=== PATIENT | female | born 1940 | race Caucasian/White ===

== ENCOUNTER 2017-02-16 01:34 | Inpatient (IN) | payer MEDICARE, BC ==
[2017-02-16] MEDS ORDERED: DIAZEPAM 5 MG/ML 2 ML SYRINGE IVP STA (02:30)
--- NOTE | 2017-02-16 02:33 | ED ---
Neck Injury/Pain HPI - General Source: RN notes reviewed Mode of arrival: EMS Limitations: no limitations <Afia Pfeiffer - Last Filed: 02/16/17 05:01> <Giacomo Fernandez - Last Filed: 02/16/17 08:02> - General Chief Complaint: Neck Pain/Injury Stated Complaint: neck pain Time Seen by Provider: 02/16/17 01:43 - History of Present Illness Initial Comments: Patient is a 76-year-old female presents emergency room for evaluation of neck pain. Patient states she began developing neck pain morning when she woke up. Patient states the pain gotten worse throughout the day, so she went to her primary care provider on Friday. Patient states that she was given muscle relaxers. Patient states she has been taking one muscle relaxer per day with no relief of symptoms. Patient states the pain is worse while laying in bed. Patient states she can't move her neck or get out of a chair/bed without pain. Patient states the pain radiates from the base of her scalp on bilateral sides of her cervical spine to bilateral shoulders. Patient denies any numbness or tingling in her fingers. Patient denies headache or dizziness. Patient denies chest pain or shortness of breath. Patient denies fevers or chills. Patient denies any recent falls or trauma to her neck/head. (Afia Pfeiffer) - Related Data Home Medications Medication Instructions Recorded Confirmed Aspirin 81 mg PO BID 05/04/15 02/16/17 Atorvastatin Calcium [Lipitor] 40 mg PO DAILY 05/04/15 02/16/17 Fluticasone/Salmeterol [Advair 1 puff INHALATION RT-BID 05/04/15 02/16/17 500-50 Diskus] Hydrochlorothiazide [Hydrodiuril] 50 mg PO DAILY 05/04/15 02/16/17 Levothyroxine Sodium [Synthroid] 50 mcg PO DAILY 05/04/15 02/16/17 Meclizine [Antivert] 25 mg PO BID PRN 05/04/15 02/16/17 metFORMIN HCL [Glucophage] 500 mg PO BID 05/04/15 02/16/17 ALPRAZolam [ALPRAZolam] 1 mg PO TID PRN 08/23/16 02/16/17 Albuterol Inhaler [Ventolin Hfa 1 - 2 puff INHALATION RT-Q4H PRN 08/23/16 Inhaler] Insulin Aspart [NovoLOG Flexpen] See Protocol SQ ACHS 08/23/16 02/16/17 Lansoprazole [Lansoprazole] 30 mg PO DAILY 08/23/16 02/16/17 Cyclobenzaprine HCl [Amrix] 15 mg PO DAILY 02/16/17 02/16/17 Edoxaban Tosylate [Savaysa] 60 mg PO HS 02/16/17 02/16/17 Verapamil HCl [Verapamil ER] 120 mg PO DAILY 02/16/17 02/16/17 Allergies Allergy/AdvReac Type Severity Reaction Status Date / Time erythromycin base Allergy Rash/Hives Verified 02/16/17 01:49 lisinopril Allergy Unknown Verified 02/16/17 01:49 moexipril HCl [From Univasc] Allergy Cough Verified 02/16/17 01:49 sulfamethoxazole Allergy Rash/Hives Verified 02/16/17 01:49 [From Bactrim] trimethoprim [From Bactrim] Allergy Rash/Hives Verified 02/16/17 01:49 cat scan dye Allergy Rash/Hives Uncoded 02/16/17 01:49 Review of Systems ROS Other: All systems not noted in ROS Statement are negative. <Afia Pfeiffer - Last Filed: 02/16/17 05:01> ROS Other: All systems not noted in ROS Statement are negative. <Giacomo Fernandez - Last Filed: 02/16/17 08:02> ROS Statement: Those systems with pertinent positive or pertinent negative responses have been documented in the HPI. Past Medical History Past Medical History: Atrial Flutter, Asthma, CVA/TIA, Diabetes Mellitus, Eye Disorder, Hyperlipidemia, Hypertension, Liver Disease, Osteoarthritis (OA), Thyroid Disorder Additional Past Medical History / Comment(s): Palpitations for years, NIDDM type II, hypothyroid, CVA 2011 with some L sided weakness, bilateral tinnitis, hepatitis back in the 1950's-unkn which type, hiatal hernia, sinus problems, chronic back pain, epistaxis in past but none lately, macular degeneration bilaterally, generalized arthritis. History of Any Multi-Drug Resistant Organisms: None Reported Past Surgical History: Heart Catheterization, Hysterectomy, Joint Replacement, Orthopedic Surgery Additional Past Surgical History / Comment(s): bilateral cataract surgery, eye injections for macular degeneration q 5 weeks, bilateral knee arthroscopies and arthroplasties, 08/07/16 cardiac cath-normal. loop recorder 08/2016 Past Anesthesia/Blood Transfusion Reactions: Motion Sickness, Postoperative Nausea & Vomiting (PONV) Past Psychological History: Anxiety Additional Psychological History / Comment(s): Pt resides with her spouse. She uses a cane if she needs to walk longer distances. She drives. Smoking Status: Never smoker Past Alcohol Use History: None Reported Past Drug Use History: None Reported - Past Family History Father Family Medical History: Congestive Heart Failure (CHF) Additional Family Medical History / Comment(s): Father of CHF at the age of 89yrs. Mother Family Medical History: CVA/TIA, Osteoarthritis (OA) Additional Family Medical History / Comment(s): Mother of a CVA at the age of 89yrs. <Afia Pfeiffer - Last Filed: 02/16/17 05:01> General Exam Limitations: no limitations General appearance: alert, in no apparent distress Head exam: Present: atraumatic, normocephalic, normal inspection Eye exam: Present: normal appearance ENT exam: Present: normal exam Neck exam: Present: normal inspection, tenderness (Palpating over bilateral paraspinal cervical muscles and tenderness on palpating over the posterior scalp ). Absent: full ROM Respiratory exam: Present: normal lung sounds bilaterally. Absent: respiratory distress Cardiovascular Exam: Present: regular rate, normal rhythm, normal heart sounds Extremities exam: Present: normal inspection Back exam: Present: normal inspection Neurological exam: Present: alert, oriented X3, CN II-XII intact Expanded Cranial nerves: EOM's Intact: Normal Sensory exam: Upper Extremity Light Touch: Normal, Lower Extremity Light Touch: Normal Motor strength exam: RUE: 5, LUE: 5, RLE: 5, LLE: 5 Eye Response: (4) open spontaneously Motor Response: (6) obeys commands Verbal Response: (5) oriented Psychiatric exam: Present: normal affect, normal mood Skin exam: Present: warm, dry, intact, normal color. Absent: rash <Afia Pfeiffer - Last Filed: 02/16/17 05:01> <Giacomo Fernandez - Last Filed: 02/16/17 08:02> - General Exam Comments Initial Comments: Sitting in exam room, soft c-collar on, no acute distress. (Afia Pfeiffer) Medical Decision Making - Lab Data Result diagrams: 02/16/17 04:00 02/16/17 04:00 - Radiology Data Radiology results: report reviewed, image reviewed <Afia Pfeiffer - Last Filed: 02/16/17 05:01> - Lab Data Result diagrams: 02/16/17 04:00 02/16/17 04:00 <Giacomo Fernandez - Last Filed: 02/16/17 08:02> - Medical Decision Making Patient is a 76-year-old female presents emergency room for evaluation of severe neck pain. Cervical spine x-ray shows no acute findings. Patient noted to have elevated WBC. Patient sent for brain/C-spine CT. Other labs pending. Case discussed and passed on to Dr. Fernandez at 5 AM. (Afia Pfeiffer) This patient is a 76-year-old woman who presents for evaluation and treatment of intractable neck pain. When I did go and see the patient, she has severely limited range of motion. On presentation she also does have low-grade fever. Discussed with patient the concerns of possible meningitis. Do not suspect acute bacterial meningitis as the symptoms have been going on for 3 days and suspect that the patient would have become critically ill earlier in the course , however the patient does agree with having lumbar puncture, as she is not responding to treatment for musculoskeletal neck pain. The patient does take edoxaban, and the last dose was at 4 PM. Given this would recommend waiting for 24 hours or reversing the patient's anticoagulant. Discussed with admitting physician, who I would like Dr. Cross consulted for his input. Patient also to have antibiotic coverage pending. (Giacomo Fernandez) - Lab Data Lab Results 02/16/17 02/16/17 02/16/17 Range/Units 04:00 04:00 04:00 WBC 14.6 H (3.8-10.6) k/uL RBC 4.04 (3.80-5.40) m/uL Hgb 11.4 (11.4-16.0) gm/dL Hct 34.6 (34.0-46.0) % MCV 85.6 (80.0-100.0) fL MCH 28.3 (25.0-35.0) pg MCHC 33.1 (31.0-37.0) g/dL RDW 15.3 (11.5-15.5) % Plt Count 227 (150-450) k/uL Neutrophils % 83 % Lymphocytes % 11 % Monocytes % 4 % Eosinophils % 0 % Basophils % 0 % Neutrophils # 12.1 H (1.3-7.7) k/uL Lymphocytes # 1.7 (1.0-4.8) k/uL Monocytes # 0.6 (0-1.0) k/uL Eosinophils # 0.0 (0-0.7) k/uL Basophils # 0.0 (0-0.2) k/uL ESR 97 H (0-20) mm/hr D-Dimer 0.81 H (<0.60) mg/L FEU Sodium 136 L (137-145) mmol/L Potassium 3.8 (3.5-5.1) mmol/L Chloride 98 (98-107) mmol/L Carbon Dioxide 27 (22-30) mmol/L Anion Gap 11 mmol/L BUN 21 H (7-17) mg/dL Creatinine 0.80 (0.52-1.04) mg/dL Est GFR (MDRD) Af Amer >60 (>60 ml/min/1.73 sqM) Est GFR (MDRD) Non-Af >60 (>60 ml/min/1.73 sqM) Glucose 144 H (74-99) mg/dL Calcium 8.7 (8.4-10.2) mg/dL Total Bilirubin 0.9 (0.2-1.3) mg/dL AST 15 (14-36) U/L ALT 25 (9-52) U/L Alkaline Phosphatase 93 (38-126) U/L Troponin I (0.000-0.034) ng/mL Total Protein 6.5 (6.3-8.2) g/dL Albumin 3.4 L (3.5-5.0) g/dL 02/16/17 Range/Units 04:00 WBC (3.8-10.6) k/uL RBC (3.80-5.40) m/uL Hgb (11.4-16.0) gm/dL Hct (34.0-46.0) % MCV (80.0-100.0) fL MCH (25.0-35.0) pg MCHC (31.0-37.0) g/dL RDW (11.5-15.5) % Plt Count (150-450) k/uL Neutrophils % % Lymphocytes % % Monocytes % % Eosinophils % % Basophils % % Neutrophils # (1.3-7.7) k/uL Lymphocytes # (1.0-4.8) k/uL Monocytes # (0-1.0) k/uL Eosinophils # (0-0.7) k/uL Basophils # (0-0.2) k/uL ESR (0-20) mm/hr D-Dimer (<0.60) mg/L FEU Sodium (137-145) mmol/L Potassium (3.5-5.1) mmol/L Chloride (98-107) mmol/L Carbon Dioxide (22-30) mmol/L Anion Gap mmol/L BUN (7-17) mg/dL Creatinine (0.52-1.04) mg/dL Est GFR (MDRD) Af Amer (>60 ml/min/1.73 sqM) Est GFR (MDRD) Non-Af (>60 ml/min/1.73 sqM) Glucose (74-99) mg/dL Calcium (8.4-10.2) mg/dL Total Bilirubin (0.2-1.3) mg/dL AST (14-36) U/L ALT (9-52) U/L Alkaline Phosphatase (38-126) U/L Troponin I <0.012 (0.000-0.034) ng/mL Total Protein (6.3-8.2) g/dL Albumin (3.5-5.0) g/dL Disposition <Afia Pfeiffer - Last Filed: 02/16/17 05:01> <Giacomo Fernandez - Last Filed: 02/16/17 08:02> Clinical Impression: Intractable pain, Leukocytosis Disposition: ADMITTED IP TO THIS [facility] Condition: Fair Referrals: Mark Macias DO [Primary Care Provider] - 1-2 days
[2017-02-16] MEDS ORDERED: MORPHINE SULFATE 4 MG/ML SYRINGE IVP STA (03:30)
--- NOTE | 2017-02-16 03:38 | XR ---
EXAM: XR Cervical Spine, 4 or 5 Views. CLINICAL HISTORY: Reason: Pain TECHNIQUE: Frontal, lateral and oblique views of the cervical spine. COMPARISON: No relevant prior studies available. FINDINGS: Vertebrae: No fracture or traumatic malalignment. Note that the C7 vertebral body on lateral radiograph was not seen well secondary to bony artifact from shoulders. Disc spaces: Mild to moderate degenerative changes of the cervical spine. Soft tissues: Unremarkable. IMPRESSION: No acute findings.
[2017-02-16 04:18] LABS: Basophils % (A) 0 %; CH 28.6; CHCM 33.6; Eosinophils % (A) 0 %; HCT 34.6 % (34.0-46.0); HDW 2.88; HGB 11.4 gm/dL (11.4-16.0); Luc # (Auto) 0.13; Luc % (Auto) 1; Lymphocytes # (A) 1.7 k/uL (1.0-4.8); Lymphocytes % (A) 11 %; MCH 28.3 pg (25.0-35.0); MCHC 33.1 g/dL (31.0-37.0); MCV 85.6 fL (80.0-100.0); Mean Platelet Volume 7.4; Monocytes # (A) 0.6 k/uL (0-1.0); Monocytes % (A) 4 %; Neutrophils # (A) 12.1 k/uL (1.3-7.7); Neutrophils % (A) 83 %; RBC 4.04 m/uL (3.80-5.40); RDW 15.3 % (11.5-15.5); WBC 14.6 k/uL (3.8-10.6); WBC (Perox) 14.91
[2017-02-16 04:31] LABS: ALT 25 U/L (9-52); AST 15 U/L (14-36); Alkaline Phosphatase 93 U/L (38-126); Anion Gap 11 mmol/L; Blood Urea Nitrogen 21 mg/dL (7-17); Calcium 8.7 mg/dL (8.4-10.2); Carbon Dioxide 27 mmol/L (22-30); Chloride 98 mmol/L (98-107); Glucose 144 mg/dL (74-99); Non-African American GFR(MDRD) >60 (>60 ml/min/1.73 sqM); Potassium 3.8 mmol/L (3.5-5.1); Sodium 136 mmol/L (137-145); Total Bilirubin 0.9 mg/dL (0.2-1.3); Total Protein 6.5 g/dL (6.3-8.2)
[2017-02-16 05:28] LABS: Erythrocyte Sedimentation Rate 97 mm/hr (0-20)
--- NOTE | 2017-02-16 05:32 | CT ---
EXAM: CT Head Without Intravenous Contrast. CLINICAL HISTORY: Reason: Pain TECHNIQUE: Axial computed tomography images of the head/brain without intravenous contrast. CTDI is 57.4 mGy and DLP is 1012.7 mGy-cm This CT exam was performed using one or more of the following dose reduction techniques: automated exposure control, adjustment of the mA and/or kV according to patient size, and/or use of iterative reconstruction technique. COMPARISON: CT head dated 08/08/2012 FINDINGS: Brain: No evidence of acute infarct, hemorrhage, mass or edema. Encephalomalacia within the right posterior frontal/parietal lobe likely remote infarct. Ventricles: Unremarkable. No ventriculomegaly. Bones/joints: Unremarkable. No acute fracture. Soft tissues: Unremarkable. Sinuses: Minimal mucosal thickening in the paranasal sinuses. Mastoid air cells: Unremarkable as visualized. No mastoid effusion. IMPRESSION: No evidence of acute infarct, hemorrhage, mass or edema. EXAM: CT Cervical Spine Without Intravenous Contrast. CLINICAL HISTORY: Reason: Pain TECHNIQUE: Axial computed tomography images of the cervical spine without intravenous contrast. CTDI is 21.9 mGy and DLP is 372.6 mGy-cm This CT exam was performed using one or more of the following dose reduction techniques: automated exposure control, adjustment of the mA and/or kV according to patient size, and/or use of iterative reconstruction technique. COMPARISON: No relevant prior studies available. FINDINGS: Vertebrae: No evidence of acute fracture or medical malalignment. Discs/spinal canal/neural foramina: Degenerative changes. No spinal canal stenosis. Soft tissues: Unremarkable. Lung apices: Pleural parenchymal scarring within the lung apices. IMPRESSION: No acute findings.
[2017-02-16] MEDS ORDERED: DEXAMETHASONE SOD PHOSPHATE 4 MG/ML 1 ML VIAL IV STA (06:08)
[2017-02-16] MEDS ORDERED: cefTRIAXone 2,000 MG in SODIUM CHLORIDE 0.9% 100 ML IVPB STA (06:13)
[2017-02-16 07:01] VITALS: RESP 18
[2017-02-16] MEDS ORDERED: NALOXONE 0.4 MG/ML 1 ML VIAL IV PRN (07:52)
[2017-02-16] MEDS ORDERED: ONDANSETRON 4 MG/2 ML VIAL IVP PRN (07:52)
[2017-02-16] MEDS ORDERED: ALBUTEROL NEBULIZED 2.5 MG/3 ML INHALATION PRN (07:56)
[2017-02-16] MEDS ORDERED: MECLIZINE 25 MG TAB PO PRN (07:56)
[2017-02-16] MEDS ORDERED: ALPRAZolam 0.5 MG TAB PO PRN (07:56)
[2017-02-16] MEDS ORDERED: SYMBICORT 160-4.5 MCG INHALER INHALATION SCH (08:00)
[2017-02-16] MEDS ORDERED: SODIUM CHLORIDE 0.9% 1,000 ML IV SCH (08:00)
[2017-02-16] MEDS ORDERED: IV VANCOMYCIN PER PHARMACY 1 EACH MISC MISCELLANE PRN ×2 (08:02→11:47)
[2017-02-16] MEDS: MORPHINE SULFATE 4 MG/ML SYRINGE IV PRN ×2 (08:42→16:38)
[2017-02-16] MEDS ORDERED: ATORVASTATIN 40 MG TAB PO SCH (09:00)
[2017-02-16] MEDS ORDERED: ASPIRIN 81 MG CHEW PO SCH (09:00)
[2017-02-16] MEDS ORDERED: PANTOPRAZOLE 40 MG TABLET PO SCH (09:00)
[2017-02-16] MEDS ORDERED: VERAPAMIL SR 120 MG TABLET.ER PO SCH (09:00)
[2017-02-16] MEDS ORDERED: metFORMIN 500 MG TAB PO SCH (09:00)
[2017-02-16] MEDS ORDERED: FAMOTIDINE 20 MG TAB PO SCH (09:00)
[2017-02-16] MEDS ORDERED: CYCLOBENZAPRINE 5 MG TAB PO SCH (09:00)
[2017-02-16] MEDS ORDERED: LEVOTHYROXINE 50 MCG TAB PO SCH (09:00)
[2017-02-16] MEDS ORDERED: VANCOMYCIN 1,500 MG in SODIUM CHLORIDE 0.9% 250 ML IVPB SCH (09:00)
[2017-02-16] MEDS ORDERED: HYDROCHLOROTHIAZIDE 50 MG TAB PO SCH (09:00)
[2017-02-16] MEDS ORDERED: KETOROLAC 30 MG/ML 1 ML VIAL IVP SCH (12:00)
[2017-02-16 12:20] VITALS: BMI 29.7
[2017-02-16 15:41] LABS: Amorphous Sediment,Urine Occasional /hpf; Appearance,Urine Cloudy (Clear); Bacteria,Urine Few /hpf; Bilirubin,Urine Negative (Negative); Glucose,Urine (UA) Negative (Negative); Ketones,Urine Negative (Negative); Leukocyte Esterase,Urine Small (Negative); Mucus,Urine Rare /hpf; Nitrite,Urine Negative (Negative); PH, Urine 5.5 (5.0-8.0); Particle Count 10502; Protein,Urine Trace (Negative); RBC,Urine 146 /hpf (0-5); Squamous Epithelial Cell,Urine 3 /hpf (0-4); UA Billing (MACRO vs. MICRO) MICRO; Urobilinogen,Urine <2.0 mg/dL (<2.0); WBC,Urine 8 /hpf (0-5)
[2017-02-16 15:51] VITALS: BP 104/56; PULSE 82; TEMP 98.5
--- NOTE | 2017-02-16 15:55 | DS ---
DATE OF ADMISSION: 02/16/2017 DATE OF DISCHARGE: FINAL DIAGNOSES: 1. Neck pain and high white count, rule out spinal epidural abscess. 2. Rule out meningitis. 3. ESR 102. 4. CRP 232.3. 5. Hyponatremia. 6. History of atrial flutter, was Savaysa. 7. History of asthma. 8. History of cerebrovascular accident, transient ischemic attack. 9. Diabetes mellitus type 2. 10. Hyperlipidemia. 11. Hypertension. 12. Liver disease. 13. Degenerative joint disease. 14. History of hypothyroidism. 15. History of cerebrovascular accident. 16. History of bilateral tinnitus. 17. History of hepatitis. 18. History of epistaxis. 19. History of macular degeneration. 20. History cataract surgery. 21. History of anxiety. DISCHARGE DISPOSITION: Patient will be transferred to [facility] in stable condition with guarded prognosis. HISTORY OF PRESENT ILLNESS: This 76-year-old woman with a past medical history of multiple medical problems was admitted with neck pain and as well as elevated WBC and CRP and ESR as mentioned earlier, treated symptomatically. A lumbar puncture could not be done because of the patient was on and MRI could not be done on the weekend. Cultures were done and patient was treated with broad-spectrum IV antibiotics utilizing IV vancomycin as well as Rocephin 2 grams IV b.i.d. but; however, because of concerns of epidural abscess/meningitis, the patient is being transferred to [facility] in a stable condition with guarded prognosis. I have discussed the case at length with [facility] on-call hospitalist and the patient will be transferred. The current medications are as follows includin. Xanax 1 mg t.i.d. p.r.n. 2. Albuterol 2.5 p.r.n. 3. Aspirin 81 mg Friday, Friday, Friday. 4. Lipitor 40 mg daily. 5. Symbicort 2 puffs b.i.d. 6. Flexeril 50 mg p.o. daily. 7. Pepcid 20 mg p.o. b.i.d. 8. Hydrochlorothiazide 50 mg p.o. daily. 9. Toradol 50 mg IV q.6 p.r.n. 10. Levothyroxine 50 mcg p.o. daily. 11. Antivert 25 mg b.i.d. p.r.n. 12. Morphine 4 mg q.4 p.r.n. 13. Narcan. 14. Zofran p.r.n. 15. Protonix 40 mg daily. 16. Vancomycin 1.5 IV q.24 hours. 17. Isoptin 120 mg p.o. daily. 18. Rocephin 2 grams IV b.i.d. 19. Metformin 500 mg p.o. b.i.d.
[2017-02-16] MEDS ORDERED: INSULIN LISPRO (humaLOG) 300 UNIT/3 ML VIAL SQ SCH (17:30)
--- NOTE | 2017-02-16 17:36 | P.CONS ---
History of Present Illness - Reason for Consult Consult date: 02/16/17 - Chief Complaint Progressive neck pain over 48 hours - History of Present Illness 76-year-old female that has a significant past medical history that she is undergone a stroke with some residual left-sided weakness and discomforts. The patient relates that within the last few days she started increasing amounts of pain to her neck and upper shoulders. She was in the outpatient setting and given a muscle relaxant. Despite that the pain markedly increased. She was actually unable to get out of bed. So her family brought her to the emergency center. She was noticed to have evidence of some leukocytosis and a temperature of 99.5. Because of the progressive neck pain and computed tomography scan of the neck was performed. Minimal arthritic changes were noted. No evidence of any cord compression or infections were seen. Patient remains miserable despite muscle relaxants and pain control. However she lays completely flexing the still show she does have time she has absolutley no pain at all,. Review of Systems Has significant pain within her neck. But denies other acute neurological changes. She denies dizziness or vertigo Ear pains. She is not difficulty with swallowing HEENT:Denies headache or acute visual change. Denies sinus or mouth discomforts. Denies neck stiffness or pain. Denies significant oral cavity pain. Denies difficulty on swallowing. Lungs: Denies significant shortness of breath, cough, sputum production, or hemoptysis. Cardiovascular: Denies significant shortness of breath, chest pain, chest wall pain, orthopnea, dyspnea on exertion, syncope Gastrointestinal:Denies nausea, vomiting, diarrhea, constipation, hematemesis, melena, hematochezia. No no significant change of bowel habit noticed. Musculoskeletal: denies significant myalgias or arthralgias. No new joint swelling. Denies new back pain. Skin: Denies new rash or lesions. No new ulcers or wounds are related.. Neuro: Continues to have the left-sided deficits as a residual from her stroke. Significant heaviness to her left leg results and her needing a walker to ambulate. She has some weakness and clumsiness to her left hand and this is new at this time. It is also not worsened. Psychiatric:Denies anxiety or depression. Endocrine: she's had severe fatigue since her stroke but no stiff in weight gain Past Medical History Past Medical History: Atrial Flutter, Asthma, CVA/TIA, Diabetes Mellitus, Eye Disorder, Hyperlipidemia, Hypertension, Liver Disease, Osteoarthritis (OA), Thyroid Disorder Additional Past Medical History / Comment(s): Palpitations for years, NIDDM type II, hypothyroid, CVA 2011 with some L sided weakness, bilateral tinnitis, hepatitis back in the 1950's-unkn which type, hiatal hernia, sinus problems, chronic back pain, epistaxis in past but none lately, macular degeneration bilaterally, generalized arthritis. History of Any Multi-Drug Resistant Organisms: None Reported Past Surgical History: Heart Catheterization, Hysterectomy, Joint Replacement, Orthopedic Surgery Additional Past Surgical History / Comment(s): bilateral cataract surgery, eye injections for macular degeneration q 5 weeks, bilateral knee arthroscopies and arthroplasties, 08/07/16 cardiac cath-normal. loop recorder 08/2016 Past Anesthesia/Blood Transfusion Reactions: Motion Sickness, Postoperative Nausea & Vomiting (PONV) Past Psychological History: Anxiety Additional Psychological History / Comment(s): Pt resides with her spouse. She uses a walker or cane if she needs to walk longer distances. She drives occasionally, but not long distance. . Adult daughter lives close by and is helpful. Is retired. No experience. No extensive travel. no animal exposures. Lifelong nonsmoker with no significant alcohol use Smoking Status: Never smoker Past Alcohol Use History: None Reported Past Drug Use History: None Reported - Past Family History Father Family Medical History: Congestive Heart Failure (CHF) Additional Family Medical History / Comment(s): Father of CHF at the age of 89yrs. Mother Family Medical History: CVA/TIA, Osteoarthritis (OA) Additional Family Medical History / Comment(s): Mother of a CVA at the age of 89yrs. Medications and Allergies Home Medications Medication Instructions Recorded Confirmed Type Aspirin 81 mg PO MOWEFR 05/04/15 02/16/17 History Atorvastatin Calcium [Lipitor] 40 mg PO HS 05/04/15 02/16/17 History Hydrochlorothiazide [Hydrodiuril] 50 mg PO DAILY 05/04/15 02/16/17 History Levothyroxine Sodium [Synthroid] 50 mcg PO DAILY 05/04/15 02/16/17 History Meclizine [Antivert] 25 mg PO TID 05/04/15 02/16/17 History metFORMIN HCL [Glucophage] 500 mg PO BID 05/04/15 02/16/17 History ALPRAZolam [ALPRAZolam] 1 mg PO BID PRN 08/23/16 02/16/17 History Albuterol Inhaler [Ventolin Hfa 1 - 2 puff INHALATION RT-Q4H PRN 08/23/16 History Inhaler] Insulin Aspart [NovoLOG Flexpen] See Protocol SQ ACHS 08/23/16 02/16/17 History Lansoprazole [Lansoprazole] 30 mg PO DAILY 08/23/16 02/16/17 History Cyclobenzaprine HCl [Amrix] 15 mg PO HS 02/16/17 02/16/17 History Edoxaban Tosylate [Savaysa] 60 mg PO HS 02/16/17 02/16/17 History Fluticasone/Salmeterol [Advair 1 puff INHALATION RT-BID 02/16/17 02/16/17 History 100-50 Diskus] Verapamil HCl [Verapamil ER] 120 mg PO DAILY 02/16/17 02/16/17 History Vit C/E/Zn/Coppr/Lutein/Zeaxan 1 cap PO BID 02/16/17 02/16/17 History [Preservision Areds 2 Softgel] Allergies Allergy/AdvReac Type Severity Reaction Status Date / Time MITALI Inhibitors Allergy Unknown Verified 02/16/17 11:57 erythromycin base Allergy Rash/Hives Verified 02/16/17 11:57 iodine Allergy Unknown Verified 02/16/17 11:57 lisinopril Allergy Unknown Verified 02/16/17 11:57 moexipril HCl [From Univasc] Allergy Cough Verified 02/16/17 11:57 sulfamethoxazole Allergy Rash/Hives Verified 02/16/17 11:57 [From Bactrim] trimethoprim [From Bactrim] Allergy Rash/Hives Verified 02/16/17 11:57 cat scan dye Allergy Rash/Hives Uncoded 02/16/17 01:49 Physical Exam Vitals: Vital Signs Temp Pulse Pulse Resp BP BP Pulse Ox 02/16/17 15:00 98.5 F 82 18 104/56 91 L 02/16/17 08:37 99.2 F 90 18 108/53 90 L 02/16/17 08:31 97.4 F L 74 18 158/74 100 Intake and Output 02/16/17 02/16/17 02/16/17 06:59 14:59 22:59 Intake Total 100 Balance 100 Intake: Amount of Fluid Infused ( 100 ml) Other: # Voids 1 Weight 76.204 kg Patient Weight 02/17/17 06:59 Weight 76.204 kg Very pleasant 76-year-old woman who presents to Hospital the significant pain in her neck. As noted she is not having fevers chills or rigors or sweats. In the worsening of underlying neurological symptoms status post her stroke HEENT: Anicteric conjunctiva are pink and moist nasal mucosa grossly intact without significant lesions, there is no thrush. Neck: The neck is very stiff. There is distinct point tenderness over the posterior musculature of the neck. This tracks down onto the upper aspect of the shoulders to the scapula. The shoulders themselves have no point tenderness. No significant lesions are seen. No vesicles are seen. There are no lesions in the external auditory canal in either ear. No lesions are seen in the scalp either . Lungs: Good bilateral air entry without significant crackles or wheezing. There is no significant bronchial sounds. There is no egophony or dullness. Heart: Regular rate and rhythm with an audible S1-S2, no S3 no S4. There is no significant murmur click or rub, PMI was nondisplaced. Abdomen: Positive bowel sounds soft and nontender without palpable masses or organomegaly. There was no guarding or rebound. Extremities: The upper extremities have excellent pulses they are symmetric, no significant petechiae or telangiectasia. No splinter hemorrhages were noted. The lower extremities are free from significant edema. The peripheral pulses were 2+ and symmetric. Neuro: Awake alert oriented to person place and time. Has some weakness to her left arm. Also weakness of the left leg. Patient relates that there is no change from prior. Results CBC & Chem 7: 02/16/17 04:00 02/16/17 04:00 Labs: Abnormal Lab Results - Last 24 Hours (Table) 02/16/17 02/16/17 02/16/17 Range/Units 11:35 11:35 15:07 ESR 102 H (0-20) mm/hr C-Reactive Protein 232.3 H (<10.0) mg/L Urine Appearance (Clear) Urine Protein (Negative) Urine Blood (Negative) Ur Leukocyte Esterase (Negative) Urine RBC (0-5) /hpf Urine WBC (0-5) /hpf Amorphous Sediment (None) /hpf Urine Bacteria (None) /hpf Hyaline Casts (0-2) /lpf Urine Mucus (None) /hpf Urine Opiates Screen Detected H (NotDetected) U Benzodiazepines Scrn Detected H (NotDetected) 02/16/17 Range/Units 15:07 ESR (0-20) mm/hr C-Reactive Protein (<10.0) mg/L Urine Appearance Cloudy H (Clear) Urine Protein Trace H (Negative) Urine Blood Small H (Negative) Ur Leukocyte Esterase Small H (Negative) Urine RBC 146 H (0-5) /hpf Urine WBC 8 H (0-5) /hpf Amorphous Sediment Occasional H (None) /hpf Urine Bacteria Few H (None) /hpf Hyaline Casts 5 H (0-2) /lpf Urine Mucus Rare H (None) /hpf Urine Opiates Screen (NotDetected) U Benzodiazepines Scrn (NotDetected) Laboratory Results WBC 14.6 k/uL (3.8-10.6) H 02/16/17 04:00 RBC 4.04 m/uL (3.80-5.40) 02/16/17 04:00 Hgb 11.4 gm/dL (11.4-16.0) 02/16/17 04:00 Hct 34.6 % (34.0-46.0) 02/16/17 04:00 MCV 85.6 fL (80.0-100.0) 02/16/17 04:00 MCH 28.3 pg (25.0-35.0) 02/16/17 04:00 MCHC 33.1 g/dL (31.0-37.0) 02/16/17 04:00 RDW 15.3 % (11.5-15.5) 02/16/17 04:00 Plt Count 227 k/uL (150-450) 02/16/17 04:00 Neutrophils % 83 % 02/16/17 04:00 Lymphocytes % 11 % 02/16/17 04:00 Monocytes % 4 % 02/16/17 04:00 Eosinophils % 0 % 02/16/17 04:00 Basophils % 0 % 02/16/17 04:00 Neutrophils # 12.1 k/uL (1.3-7.7) H 02/16/17 04:00 Lymphocytes # 1.7 k/uL (1.0-4.8) 02/16/17 04:00 Monocytes # 0.6 k/uL (0-1.0) 02/16/17 04:00 Eosinophils # 0.0 k/uL (0-0.7) 02/16/17 04:00 Basophils # 0.0 k/uL (0-0.2) 02/16/17 04:00 ESR 102 mm/hr (0-20) H 02/16/17 11:35 D-Dimer 0.81 mg/L FEU (<0.60) H 02/16/17 04:00 Sodium 136 mmol/L (137-145) L 02/16/17 04:00 Potassium 3.8 mmol/L (3.5-5.1) 02/16/17 04:00 Chloride 98 mmol/L (98-107) 02/16/17 04:00 Carbon Dioxide 27 mmol/L (22-30) 02/16/17 04:00 Anion Gap 11 mmol/L 02/16/17 04:00 BUN 21 mg/dL (7-17) H 02/16/17 04:00 Creatinine 0.80 mg/dL (0.52-1.04) 02/16/17 04:00 Est GFR (MDRD) Af Amer >60 (>60 ml/min/1.73 sqM) 02/16/17 04:00 Est GFR (MDRD) Non-Af >60 (>60 ml/min/1.73 sqM) 02/16/17 04:00 Glucose 144 mg/dL (74-99) H 02/16/17 04:00 Calcium 8.7 mg/dL (8.4-10.2) 02/16/17 04:00 Total Bilirubin 0.9 mg/dL (0.2-1.3) 02/16/17 04:00 AST 15 U/L (14-36) 02/16/17 04:00 ALT 25 U/L (9-52) 02/16/17 04:00 Alkaline Phosphatase 93 U/L (38-126) 02/16/17 04:00 Troponin I <0.012 ng/mL (0.000-0.034) 02/16/17 04:00 C-Reactive Protein 232.3 mg/L (<10.0) H 02/16/17 11:35 Total Protein 6.5 g/dL (6.3-8.2) 02/16/17 04:00 Albumin 3.4 g/dL (3.5-5.0) L 02/16/17 04:00 Urine Color Yellow 02/16/17 15:07 Urine Appearance Cloudy (Clear) H 02/16/17 15:07 Urine pH 5.5 (5.0-8.0) 02/16/17 15:07 Ur Specific [place] 1.010 (1.001-1.035) 02/16/17 15:07 Urine Protein Trace (Negative) H 02/16/17 15:07 Urine Glucose (UA) Negative (Negative) 02/16/17 15:07 Urine Ketones Negative (Negative) 02/16/17 15:07 Urine Blood Small (Negative) H 02/16/17 15:07 Urine Nitrite Negative (Negative) 02/16/17 15:07 Urine Bilirubin Negative (Negative) 02/16/17 15:07 Urine Urobilinogen <2.0 mg/dL (<2.0) 02/16/17 15:07 Ur Leukocyte Esterase Small (Negative) H 02/16/17 15:07 Urine RBC 146 /hpf (0-5) H 02/16/17 15:07 Urine WBC 8 /hpf (0-5) H 02/16/17 15:07 Ur Squamous Epith Cells 3 /hpf (0-4) 02/16/17 15:07 Amorphous Sediment Occasional /hpf (None) H 02/16/17 15:07 Urine Bacteria Few /hpf (None) H 02/16/17 15:07 Hyaline Casts 5 /lpf (0-2) H 02/16/17 15:07 Urine Mucus Rare /hpf (None) H 02/16/17 15:07 Urine Opiates Screen Detected (NotDetected) H 02/16/17 15:07 Ur Oxycodone Screen Not Detected (NotDetected) 02/16/17 15:07 Urine Methadone Screen Not Detected (NotDetected) 02/16/17 15:07 Ur Propoxyphene Screen Not Detected (NotDetected) 02/16/17 15:07 Ur Barbiturates Screen Not Detected (NotDetected) 02/16/17 15:07 U Tricyclic Antidepress Not Detected (NotDetected) 02/16/17 15:07 Ur Phencyclidine Scrn Not Detected (NotDetected) 02/16/17 15:07 Ur Amphetamines Screen Not Detected (NotDetected) 02/16/17 15:07 U Methamphetamines Scrn Not Detected (NotDetected) 02/16/17 15:07 U Benzodiazepines Scrn Detected (NotDetected) H 02/16/17 15:07 Urine Cocaine Screen Not Detected (NotDetected) 02/16/17 15:07 U Marijuana (THC) Screen Not Detected (NotDetected) 02/16/17 15:07 Assessment and Plan (1) Neck pain, bilateral posterior Narrative/Plan: Very pleasant 76-year-old female presents to hospital with a several- day history of markedly worsening pain into her neck. This posterior location. In is markedly altered her daily activities. She's not been able to ambulate or sit up. And subsequently was having difficulties eating trying to eat or drink. Toileting was becoming impossible. The family brought her to Hospital and with pain control she's doing somewhat better. Workups revealed evidence of the markedly elevated sed rate as well as elevated CRP. The white count was elevated 14.6. Computed tomography scan of the head was reviewed with no acute changes. Computed tomography scan of the cervical spine shows evidence of good alignment. Mild degenerative changes. No evidence of any acute herniation, fluid collections or abscess no evidence of any epidural space infection. MRI was requested by the primary service but was not available. Because MRI cannot be done she'll be transferred to the tertiary center for further evaluation and neurosurgical evaluation if needed. However this time with her history, the elevated sed rate and a somewhat sudden onset of the diseases like this is polymyalgia rheumatica, without temporal arteritis overlap at this time. Steroid therapy should rapidly improve her symptoms. But has noted MRI shall be performed at an outside center as soon as possible. She's received a dose of dexamethasone. The patient's family are instructed about the MRI will be happy to follow her here in [place] about her return back to [facility]. Status: Acute (2) Leukocytosis Status: Acute (3) History of stroke Status: Acute
--- NOTE | 2017-02-16 17:43 | HP ---
DATE OF ADMISSION: 02/16/2017 CHIEF COMPLAINT: Severe neck pain. HISTORY OF PRESENT ILLNESS: This 76-year-old woman with a past medical history of multiple medical problems, including CAD/atrial fib flutter, history of asthma, CVA/TIA, history of diabetes mellitus type 2, history of hypertension, hyperlipidemia, history of chronic, hypothyroidism, history of palpitations, history of cardiac catheterization, history of anxiety, depression, being followed by Dr. Mark Macias in the outpatient setting was not feeling well over the past several days. The patient had neck pain since after waking up in the morning. The patient was lying in the wrong position. The pain got worsened throughout the day. The patient was evaluated by primary physician and was given some muscle relaxant. Because of increasing pain and other symptoms including mild fever, the patient came to [place] emergency room and was admitted to the hospital for further evaluation and treatment. CAT scan and x-rays did not show any acute abnormality. White count is elevated. The patient was started on broad-spectrum IV antibiotics. Infectious disease evaluation has been sought. There is no history of any loss of consciousness or seizures. The patient did have some headache especially the right side of the head. Past medical history: 1. History of atrial fibrillation. 2. History of asthma. 3. CVA/TIA. 4. Diabetes type 2. 5. History of hypertension. 6. Hyperlipidemia. 7. History of liver disease. 8. History of degenerative joint disease. 9. Hypothyroidism. Medications prior to admission include: Home medications are: 1. Glucophage 500 mg p.o. b.i.d. 2. PreserVision 1 capsule p.o. b.i.d. 3. Verapamil ER 120 mg daily. 4. Antivert 25 mg p.o. t.i.d. 5. Synthroid 50 mcg p.o. daily. 6. Lansoprazole 30 mg p.o. daily. 7. Novolog FlexPen a.c. and q.h.s. 8. HydroDIURIL 250 mg p.o. daily. 9. Advair. 10. Savaysa 60 mg p.o. q.6h 11. Amarex 15 mg p.o. 12. Lipitor 40 mg q.h.s. 13. Aspirin 81 mg Friday, Friday and Friday. 14. Ventolin HFA one to two puffs q4h p.r.n. 15. Xanax 1 mg b.i.d. p.r.n. ALLERGIES: MITALI INHIBITORS, AZITHROMYCIN, IODINE, LISINOPRIL, MOXAPRIL, BACTRIM AND CT SCAN DYE. FINAL DIAGNOSIS(ES): History of congestive heart failure in the family. SOCIAL HISTORY: No history of smoking. No history of alcohol. REVIEW OF SYSTEMS: HEENT: As mentioned earlier. CARDIOVASCULAR: No angina, palpitations. RESPIRATORY: No cough. GI: No nausea. : No dysuria. Nervous system: As mentioned earlier. Allergy/immunology: No asthma or hayfever. MUSCULOSKELETAL: As mentioned earlier. HEMATOLOGY/ONCOLOGY: No history of anemia. ENDOCRINE: No history of diabetes. Hypothyroidism present. CONSTITUTIONAL: As mentioned earlier. Rheumatology: As mentioned earlier. PSYCHIATRY: Negative. PHYSICAL EXAMINATION: Alert and oriented x3. Pulse 74, blood pressure 115/74, respirations 18, temperature 97.4. Pulse ox is 100% on room air. HEENT: Conjunctivae normal. Oral mucosa moist. NECK: No jugular venous distention. No carotid bruit. No lymph node enlargement. Minimal tenderness in the right side of the neck and neck movements also painful, no neck stiffness cardiac. CARDIOVASCULAR: S1, S2 muffled. No S3, no S4. RESPIRATORY: Breath sounds diminished at the bases. No rhonchi, no crackles. No adventitious sounds. Bronchial breath sounds. ABDOMEN: Soft, nontender. No mass palpable. No hepatosplenomegaly. LEGS: No edema. No swelling. CENTRAL NERVOUS SYSTEM: Higher function as mentioned. Moves all 4 limbs. No focal motor or sensory deficits. LYMPHATICS: No lymph nodes palpable in the neck, axillae or groin. SKIN: No ulcer, rash or bleeding. LABS: WBC 14.3, hemoglobin 11.4, d-dimer 0.81. ESR 102, sodium 136 and C-reactive protein 32.3. Albumin is 3.4. ASSESSMENT: 1. Severe neck pain and fever for evaluation, rule out epidural abscess. 2. Increased WBC. 3. Hypernatremia. 4. Increased random blood sugar. 5. Hypoalbuminemia. 6. History of atrial flutter. 7. History of asthma. 8. Cerebrovascular accident, transient ischemic attack. 9. Type 2 diabetes mellitus. 10. History of hypertension. 11. History of hyperlipidemia. 12. History of chronic liver disease. 13. History of degenerative joint disease. 14. History of hypothyroidism. 15. History of cerebrovascular incident 2011. 16. History of hepatitis. 17. hiatal hernia. 18. History of epistaxis. 19. History of anxiety. RECOMMENDATIONS AND DISCUSSION: In this 76-year-old who presented with multiple complex medical issues, we will monitor the patient closely, broad spectrum IV antibiotics. Also recommend MRA of the neck, and as well as infectious evaluation and orthopedic consult also. We will follow the patient closely. Guarded prognosis because of multiple complex medical issues. Further recommendations to follow. A copy of dictation being forwarded to Dr. Sara Macias who is the primary care physician. Further recommendations to follow. MTDD
[2017-02-16] MEDS ORDERED: SYMBICORT 80-4.5 MCG INHALER INHALATION SCH (20:00)
[2017-02-16] MEDS ORDERED: cefTRIAXone 2,000 MG VIAL IM SCH (21:00)
[2017-02-16] MEDS ORDERED: cefTRIAXone 2,000 MG in SODIUM CHLORIDE 0.9% 100 ML IVPB SCH (21:00)
[2017-02-17] MEDS ORDERED: ASPIRIN 81 MG CHEW PO SCH (09:00)
[2017-02-18 00:48] LABS: Hemoglobin A1C 5.9 % (4.2-6.1)
== END 2017-02-16 17:05 | disposition short-term general hospital (02) | DRG 551 ==
LOC: SUPCPDRO 01:34 → EC 01:34 → 5MS5E 07:54
PROVIDERS: ADMIT Hospitalist; ATTEND Hospitalist
DX: M54.2 Cervicalgia (principal); G06.1 Intraspinal abscess and granuloma; G03.9 Meningitis, unspecified; I48.92 Unspecified atrial flutter; E87.1 Hypo-osmolality and hyponatremia; I69.354 Hemiplegia and hemiparesis following cerebral infarction affecting left non-dominant side; I48.91 Unspecified atrial fibrillation; E11.9 Type 2 diabetes mellitus without complications; E88.09 Other disorders of plasma-protein metabolism, not elsewhere classified; G89.29 Other chronic pain; K44.9 Diaphragmatic hernia without obstruction or gangrene; M35.3 Polymyalgia rheumatica; E03.9 Hypothyroidism, unspecified; E78.5 Hyperlipidemia, unspecified; J45.909 Unspecified asthma, uncomplicated; M19.91 Primary osteoarthritis, unspecified site; I10 Essential (primary) hypertension; H93.13 Tinnitus, bilateral; K76.9 Liver disease, unspecified; H35.30 Unspecified macular degeneration; Z86.59 Personal history of other mental and behavioral disorders; Z79.82 Long term (current) use of aspirin; Z79.51 Long term (current) use of inhaled steroids; Z79.84 Long term (current) use of oral hypoglycemic drugs; Z79.899 Other long term (current) drug therapy
CPT/HCPCS: 36415; 70450; 72050; 72125; 80053; 80306; 81001; 83036; 84484; 85025; 85379; 85652; 86140; 87040; 87086; 93005; 96365; 96375; 99285

== ENCOUNTER → 2017-02-24 | Outpatient (CLI) | payer MEDICARE, BC ==
--- NOTE | 2017-02-24 14:51 | XR ---
EXAMINATION TYPE: XR chest 2V DATE OF EXAM: 02/24/2017 1:48 PM COMPARISON: None HISTORY: 76-year-old female with wheezing TECHNIQUE: Frontal and lateral views FINDINGS: Leftward patient rotation ultrasound normal cardiac mediastinal contours. Heart is normal size. Aorta and pulmonary vasculature within normal limits. Some strandy atelectasis is noted in the lower lungs . Electronic device projecting over the left heart likely a loop recorder. No consolidation or pleura l effusion. IMPRESSION: Some strandy atelectasis at the lung bases. No acute process seen.
== END ==
LOC: RADXRMAIN 13:25
PROVIDERS: ATTEND Nurse Practitioner Family
DX: J98.11 Atelectasis (principal)
CPT/HCPCS: 71020

== ENCOUNTER → 2017-06-16 | Outpatient (CLI) | payer MEDICARE, BC ==
[2017-06-16 12:03] LABS: Anisocytosis Slight; CH 28.3; HCT 34.2 % (34.0-46.0); HDW 2.79; HGB 11.1 gm/dL (11.4-16.0); MCH 27.9 pg (25.0-35.0); MCHC 32.4 g/dL (31.0-37.0); MCV 86.2 fL (80.0-100.0); RBC 3.97 m/uL (3.80-5.40); RDW 16.3 % (11.5-15.5); WBC 9.4 k/uL (3.8-10.6)
[2017-06-16 12:31] LABS: Anion Gap 12 mmol/L; Blood Urea Nitrogen 17 mg/dL (7-17); Calcium 9.1 mg/dL (8.4-10.2); Carbon Dioxide 26 mmol/L (22-30); Chloride 104 mmol/L (98-107); Glucose 60 mg/dL (74-99); Non-African American GFR(MDRD) >60 (>60 ml/min/1.73 sqM); Potassium 4.1 mmol/L (3.5-5.1); Sodium 142 mmol/L (137-145)
== END | disposition home or self-care (01) ==
LOC: LABWHC1 11:38
PROVIDERS: ATTEND Internal Medicine Clinical Cardiac Electrophysiology
DX: I47.1 Supraventricular tachycardia (principal); R55 Syncope and collapse
CPT/HCPCS: 36415; 80048; 85027

== ENCOUNTER 2017-06-23 12:32 | Day surgery (SDC) | payer MEDICARE, BC ==
[~2017-06-23 12:32] MED LIST: LACTATED RINGERS 1,000 ML IV SCH
[2017-06-23 13:47] LABS: Glucose,Whole Blood 157 mg/dL (75-99)
[2017-06-23] MEDS ORDERED: MIDAZOLAM 2 MG/2 ML VIAL ONE ×2 (13:50→16:21)
[2017-06-23] MEDS ORDERED: IV FLUID CONTINUATION 1,000 ML IV ONE (16:20)
[2017-06-23] MEDS ORDERED: PHENYLEPHRINE-0.9% NACL SYG 1 MG/10 ML SYRINGE ONE (16:21)
[2017-06-23] MEDS ORDERED: METOPROLOL TARTRATE 5 MG/5 ML VIAL IVP ONE ×2 (16:21→18:48)
[2017-06-23] MEDS ORDERED: fentaNYL (PF) 50 MCG/ML 2 ML AMP ONE (16:21)
[2017-06-23] MEDS ORDERED: ONDANSETRON 4 MG/2 ML VIAL ONE (16:21)
[2017-06-23] MEDS ORDERED: diphenhydrAMINE 50 MG/ML 1 ML VIAL ONE (16:21)
[2017-06-23] MEDS ORDERED: PROPOFOL 10 MG/ML 20 ML VIAL IV ONE (16:21)
[2017-06-23] MEDS ORDERED: KETAMINE 10 MG/ML 20 ML VIAL ONE (16:21)
[2017-06-23] MEDS ORDERED: GLYCOPYRROLATE 0.2 MG/ML 2 ML VIAL ONE (16:21)
[2017-06-23] MEDS ORDERED: LIDOCAINE 1% INJ 10MG/ML (20 ML MDV) ONE (16:21)
[2017-06-23] MEDS ORDERED: LIDOCAINE 2% INJ 20 MG/ML SQ ONE (16:52)
--- NOTE | 2017-06-23 17:34 | P.PCN ---
Preoperative Diagnosis: Procedure Diagnostic EP study, possible ablation, possible pacemaker Indication for procedure Recurrent SVT, possible atrial tachycardia/atrial fibrillation versus SVT Underlying sick sinus syndrome Diagnostic EP study Patient was brought to the EP lab in a fasting state written informed consent was obtained prior to the procedure the right and left groin were prepped and draped as a protocol. 1% lidocaine was used for local anesthesia. 4 venous sheaths were placed in the right femoral vein and why these diagnostic cath was replaced in the high right atrium, His bundle and right ventricle as well as coronary sinus. Patient was in sinus rhythm at the start of the study and recording was performed in the high right atrium, His bundle area, right ventricle as well as coronary sinus Sinus cycle length 1065 ms, PA interval 166 ms QRS right bundle branch block pattern 166 ms QT interval normal Normal AH at 82 ms and HV of 44 ms With minimal pacing to test the sinus node and AV node atrial fibrillation was induced both during atrial pacing as well as spontaneously during the procedure Patient underwent electrical cardioversion for atrial fibrillation Subsequently she went back into atrial fibrillation with minimal stimulation Bursts in the ventricular performed from 350 ms down to 200 ms without any induction of VT All catheters were then then removed and patient was prepared for dual-chamber pacemaker implantation for management of tachybradycardia syndrome Impression Tachybradycardia syndrome, symptomatic Plan Dual-chamber pacemaker implantation followed by maximal medical therapy for rate control of atrial fibrillation If medications fail to control her rates, AV node modification will be recommended in the future Lifelong anticoagulation for stroke prevention Postoperative Diagnosis: Procedure(s) Performed: Implants: Disposition: observation Indications for Procedure: Operative Findings: Description of Procedure:
[2017-06-23] MEDS: ceFAZolin 2 GM in SODIUM CHLORIDE 0.9% 100 ML IVPB STA ×2 (17:40→18:42)
[2017-06-23] MEDS ORDERED: ASPIRIN 81 MG CHEW PO SCH (17:45)
[2017-06-23] MEDS ORDERED: ceFAZolin 1,000 MG in SODIUM CHLORIDE 0.9% IRRIGATIO 250 ML IRRIGATION ONE (17:45)
[2017-06-23] MEDS ORDERED: LIDOCAINE 1% INJ 10MG/ML (10 ML MDV) SQ ONE (18:36)
[2017-06-23] MEDS ORDERED: LACTATED RINGERS 1,000 ML IV ONE (18:54)
[2017-06-23] MEDS ORDERED: ACETAMINOPHEN TAB 325 MG TAB PO PRN (19:35)
[2017-06-23] MEDS ORDERED: ACETAMINOPHEN IV (For NPO) 1,000 MG in EMPTY BAG 1 BAG IVPB ONE (19:35)
--- NOTE | 2017-06-23 19:39 | P.PCN ---
Preoperative Diagnosis: Loop explant under MAC and local anesthesia. PLAN NURSE in attendance Patient was brought to the EP lab in a fasting state. Written informed consent was obtained prior to the procedure. The subcutaneous device was successfully explanted under local anesthesia. Preoperative antibiotics were administered. The wound was closed in layers and dressed per protocol. Result: Successful loop monitor explantation. Postoperative Diagnosis: Procedure(s) Performed: Implants: Indications for Procedure: Operative Findings: Description of Procedure:
[2017-06-23] MEDS ORDERED: EDOXABAN TOSYLATE 60 MG TABLET PO SCH (21:00)
[2017-06-23] MEDS ORDERED: ATORVASTATIN 40 MG TAB PO SCH (21:00)
[2017-06-23 21:07] LABS: Glucose,Whole Blood 91 mg/dL (75-99)
[2017-06-23 21:51] VITALS: BMI 29.6
[2017-06-23] MEDS: SYMBICORT 80-4.5 MCG INHALER INHALATION SCH (21:55)
[2017-06-23] MEDS: SODIUM CHLORIDE 0.9% 1,000 ML IV SCH ×3 (22:28→22:54)
[2017-06-23] MEDS: ALPRAZolam 0.5 MG TAB PO PRN (23:58)
[2017-06-24] MEDS: ceFAZolin 2 GM in SODIUM CHLORIDE 0.9% 100 ML IVPB SCH ×4 (00:41→17:40)
[2017-06-24] MEDS ORDERED: LEVOTHYROXINE 50 MCG TAB PO SCH (06:30)
[2017-06-24 07:04] LABS: Glucose,Whole Blood 102 mg/dL (75-99)
--- NOTE | 2017-06-24 07:29 | XR ---
EXAMINATION TYPE: XR chest 2V DATE OF EXAM: 06/24/2017 COMPARISON: 02/24/2017 HISTORY: Pacer placement TECHNIQUE: Frontal and lateral views of the chest are obtained. FINDINGS: Dual-lead pacer device is noted to be in place with distal leads within the right atrium and right ve ntricle respectively. No evidence for pneumothorax. Scattered senescent parenchymal changes noted. Hyperinflation compatible with COPD. No evidence for infiltrate. No evidence for atelectasis. Heart size is stable. Mediastinal structures are stable and grossly unremarkable. No evidence for hilar prominence. Degenerative changes dorsal spine. IMPRESSION: 1. No evidence for acute pulmonary disease.
[2017-06-24] MEDS ORDERED: PANTOPRAZOLE 40 MG TABLET PO SCH (07:30)
[2017-06-24] MEDS ORDERED: VERAPAMIL SR 240 MG TABLET.ER PO SCH (09:00)
--- NOTE | 2017-06-24 10:26 | PCN ---
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 Anesthesia was in attendance. (DOCUMENTATION SPEC). Left pectoral area was prepped and draped as per protocol. 1% Lidocaine was used for local anesthesia. A 4 cm incision was made parallel to the deltopectoral groove about 1.5 cm medial to it. The incision was carried down to the level of the pectoralis muscle. A subfascial pocket was made. Hemostasis was assured. The axillary vein was accessed at two points and via appropriately sized introducer sheaths, two leads were positioned in the right heart. Atrial lead was [employer] 46 cm Isoflex Optum, serial number [id number]. Atrial pacing threshold 0.75 volts at 0.4 milliseconds. P-waves 1.8 millivolts, pacing impedance 610 ohms. 10 volt test was negative. The RV lead was positioned in the RV apex. This was also a tined lead, Isoflex Optum 1948, 58 cm in length and serial number [id number]. R waves 10 millivolts, pacing threshold less than 0.25 volts at 0.4 milliseconds, Pacing impedance of 940 ohms, 10 volt test was negative. Both leads were secured to the underlying pectoralis fascia using two non- absorbable sutures. The pocket was irrigated with antibiotic solution. The leads were then connected to the generator, ([employer] Assurity [id number] serial #[id number]). The leads and the generator were then placed in the subfascial pocket and the wound was closed in three layers and dressed for protocol. RESULT: Successful dual chamber pacemaker implantation for management of symptomatic tachybrady syndrome. PLAN : Continue with Oxyban, increase dose of Verapamil to 240 mg po daily. Pacemaker is being programmed to DDD mode at 60 PPM with long AV delay to avoid RV pacing. MTDD
[2017-06-24] MEDS: SYMBICORT 80-4.5 MCG INHALER INHALATION SCH ×2 (11:36→19:49)
[2017-06-24 11:58] VITALS: RESP 18
[2017-06-24 12:13] LABS: Glucose,Whole Blood 110 mg/dL (75-99)
[2017-06-24] MEDS ORDERED: LOSARTAN 50 MG TAB PO SCH (12:30)
[2017-06-24] MEDS: ALPRAZolam 0.5 MG TAB PO PRN (12:35)
[2017-06-24 14:52] LABS: Hemoglobin A1C 5.8 % (4.2-6.1)
[2017-06-24 15:49] VITALS: BP 112/46; PULSE 75; TEMP 98.2
[2017-06-24 17:00] LABS: Glucose,Whole Blood 115 mg/dL (75-99)
--- NOTE | 2017-06-27 14:28 | DS ---
Patient admitted for evaluation of palpitations. She had history of sick sinus syndrome. She was found to have atrial fibrillation. She was diagnosed with tachybrady syndrome and breaking through on verapamil. She underwent dual chamber pacemaker implantation after the diagnostic EP study. Loop Monitor was explanted. Today she is doing well. She is in sinus rhythm. Head and neck examination normal. Heart sounds are normal. The pacemaker site has healed well. Groins have healed well. IMPRESSIONS: Tachybrady syndrome status post dual chamber pacemaker implantation. SUGGEST: 1. Increase Verapamil to 240 mg p.o. daily. 2. Discontinue hydrochlorothiazide. 3. Continue irbesartan 300 mg p.o. daily at night. She will take verapamil in the morning. Hydrochlorothiazide has been discontinued. She will continue atorvastatin, baby aspirin and edoxeban. 4. We will see her in the office in five days and I will see her again in about four months. PRAVEENA
--- NOTE | 2017-06-27 14:34 | MISC ---
June 24, 2017 Dear. Mark Macias: I had the pleasure of seeing Nata Rush in the electrophysiology followup. Nata has a history of recurrent palpitations despite nadolol in the past and more recently Verapamil. She was brought in for diagnostic EP study. She was found to have atrial fibrillation. She underwent a dual chamber pacemaker implantation for management of tachybrady syndrome. I would suggest the followin. Increase Verapamil to 240 mg p.o. daily. 2. Discontinue hydrochlorothiazide. 3. Irbesartan should be continued but in the evening. 4. Life long edoxeban. 5. Since she also has coronary artery disease she will continue on baby aspirin once daily along with atorvastatin. We will see her again in the office in about five days in the Device Clinic. Thank you for entrusting us with the care of your patient. Warm regards. Sincerely, PRAVEENA
== END 2017-06-24 19:27 | disposition home or self-care (01) ==
LOC: CATHEP 12:32 → 6SEL 19:23 → 3OBS 20:04 → CATHEP 06-24 19:27
PROVIDERS: ATTEND Internal Medicine Clinical Cardiac Electrophysiology
DX: I49.5 Sick sinus syndrome (principal); I48.91 Unspecified atrial fibrillation; I47.1 Supraventricular tachycardia; I45.10 Unspecified right bundle-branch block; R55 Syncope and collapse; I25.10 Atherosclerotic heart disease of native coronary artery without angina pectoris; I10 Essential (primary) hypertension; E11.9 Type 2 diabetes mellitus without complications; I73.9 Peripheral vascular disease, unspecified; I65.29 Occlusion and stenosis of unspecified carotid artery; I69.354 Hemiplegia and hemiparesis following cerebral infarction affecting left non-dominant side; E78.00 Pure hypercholesterolemia, unspecified; F41.9 Anxiety disorder, unspecified; Z82.49 Family history of ischemic heart disease and other diseases of the circulatory system; Z79.84 Long term (current) use of oral hypoglycemic drugs; Z79.82 Long term (current) use of aspirin; Z79.4 Long term (current) use of insulin; Z79.51 Long term (current) use of inhaled steroids; Z79.899 Other long term (current) drug therapy; Z88.1 Allergy status to other antibiotic agents; Z88.0 Allergy status to penicillin; Z88.2 Allergy status to sulfonamides; Z88.8 Allergy status to other drugs, medicaments and biological substances; Z91.09 Other allergy status, other than to drugs and biological substances
CPT/HCPCS: 93620; 33208; 33284; 83036; 71020; C1894; C1769 ×2; C1730 ×3; C1892; C1898; C1785; J2001 ×3; J2250; J1200; J0690 ×2; J2405; J3010; J0131; J2370; J2704; 92960

== ENCOUNTER → 2017-12-22 | Outpatient (CLI) | payer MEDICARE, BC ==
--- NOTE | 2017-12-22 09:13 | US ---
EXAMINATION TYPE: US venous doppler duplex LE LT DATE OF EXAM: 12/22/2017 8:35 AM COMPARISON: NONE CLINICAL HISTORY: 77-year-old female R60.0 Edema. Pt states left leg is weak and having pain, no know n prior DVT SIDE PERFORMED: Left TECHNIQUE: The lower extremity deep venous system is examined utilizing real time linear array sonog gloria with graded compression, doppler sonography and color-flow sonography. FINDINGS: VESSELS IMAGED: External Iliac Vein (EIV) Common Femoral Vein Deep Femoral Vein Greater Saphenous Vein * Femoral Vein Popliteal Vein Small Saphenous Vein * Proximal Calf Veins (* superficial vessels) Left Leg: Negative for DVT IMPRESSION: No evidence for DVT within the left lower extremity imaged from the groin to the upper calf.
== END | disposition home or self-care (01) ==
LOC: RADUSWWP 08:12
PROVIDERS: ATTEND Family Medicine
DX: R60.0 Localized edema (principal)

== ENCOUNTER → 2018-06-22 | Outpatient (CLI) | payer MEDICARE, BC ==
--- NOTE | 2018-06-29 11:59 | MM ---
Reason for exam: screening (asymptomatic). Last mammogram was performed 2 years and 1 month ago. History: Patient is postmenopausal. Took estrogen for 7 years 6 months beginning at age 62. Physical Findings: A clinical breast exam by your physician is recommended on an annual basis and results should be correlated with mammographic findings. MG 3D Screening Mammo W/Cad Bilateral CC and MLO view(s) were taken. Technologist: Consuelo Anderson RT (R)(M) Prior study comparison: June 05, 2016, bilateral MG 3d screening mammo w/cad. May 05, 2015, left breast MG work up mamm w CAD LT. The breast tissue is heterogeneously dense. This may lower the sensitivity of mammography. No suspicious calcifications are seen. No significant changes when compared with prior studies. ASSESSMENT: Benign, BI-RAD 2 RECOMMENDATION: Routine screening mammogram of both breasts in 1 year.
== END | disposition home or self-care (01) ==
LOC: RADMAMWWP 13:24
PROVIDERS: ATTEND Family Medicine
DX: Z12.31 Encounter for screening mammogram for malignant neoplasm of breast (principal)
CPT/HCPCS: 77063; 77067

== ENCOUNTER → 2018-09-30 | Outpatient (CLI) | payer MEDICARE, BC | END | disposition home or self-care (01) | LOC: LABWHC1 13:15 | PROVIDERS: ATTEND Family Medicine | DX: R51 Headache (principal) | CPT/HCPCS: 36415; 85652 ==

== ENCOUNTER → 2018-12-04 | Outpatient (CLI) | payer MEDICARE, BC ==
--- NOTE | 2018-12-04 14:09 | XR ---
EXAMINATION TYPE: XR humerus RT DATE OF EXAM: 12/04/2018 CLINICAL HISTORY: pain COMPARISON: NONE TECHNIQUE: Frontal and lateral images of the right humerus are obtained. FINDINGS: There is no acute fracture/dislocation evident. The joint spaces appear within normal limi ts. The overlying soft tissue appears unremarkable. IMPRESSION: There is no acute fracture or dislocation.ICD 10 NO FRACTURE, INITIAL EVALUATION
== END | disposition home or self-care (01) ==
LOC: RADXRMAIN 13:38
PROVIDERS: ATTEND Family Medicine
DX: M79.601 Pain in right arm (principal)

== ENCOUNTER → 2018-12-04 | Outpatient (CLI) | payer MEDICARE, BC ==
--- NOTE | 2018-12-04 10:16 | US ---
EXAMINATION TYPE: US abdomen complete DATE OF EXAM: 12/04/2018 COMPARISON: NONE CLINICAL HISTORY: R10.13 Epigastric Pain. Epigastric pain and nausea x 1 month, patient not NPO: had coffee 3 hours prior to exam EXAM MEASUREMENTS: Liver Length: 12.6 cm Gallbladder Wall: 0.2 cm CBD: 0.4 cm Spleen: 8.8 cm Right Kidney: 9.2 x 5.3 x 5.6 cm Left Kidney: 9.2 x 4.2 x 4.0 cm Difficult and limited study due to patient body habitus and overlying bowel content Pancreas: visualized portions wnl Liver: heterogeneous Gallbladder: wnl Evidence for sonographic Medrano's sign: no CBD: visualized portions wnl Spleen: visualized portions wnl Right Kidney: wnl Left Kidney: wnl Upper IVC: wnl Abd Aorta: visualized portions wnl The liver is heterogenous. The intrahepatic portion of the IVC and proximal abdominal aorta are withi n normal limits. There is no evidence of cholelithiasis. Common bile duct is unremarkable. The vis ualized portions of the pancreas are homogenous. The spleen is unremarkable. Kidneys are symmetric and free of hydronephrosis. No renal lesions are seen. IMPRESSION: 1. Mild fatty hepatic infiltration suggested.
== END | disposition home or self-care (01) ==
LOC: RADUSWWP 09:29
PROVIDERS: ATTEND Family Medicine
DX: R10.13 Epigastric pain (principal)
CPT/HCPCS: 76700

== ENCOUNTER 2019-02-03 06:41 | Day surgery (SDC) | payer MEDICARE, BC ==
[2019-01-29 14:01] VITALS: BMI 31.8
[~2019-02-03 06:41] MED LIST changes: +LIDOCAINE 1% 20 ML VIAL (10MG/ML) FOR IV START INTRADERMA PRN
[2019-02-03 07:28] VITALS: RESP 18; TEMP 97.8
[2019-02-03 07:36] LABS: Glucose,Whole Blood 118 mg/dL (75-99)
[2019-02-03] MEDS ORDERED: PROPOFOL 10 MG/ML 20 ML VIAL IV ONE (07:36)
--- NOTE | 2019-02-03 08:03 | P.PCN ---
Date of Procedure: 02/03/19 Procedure(s) Performed: BRIEF HISTORY: Patient is a 78-year-old pleasant white female, scheduled for an elective colonoscopy as a part of evaluation of Hemoccult-positive stool. PROCEDURE PERFORMED: Colonoscopy. PREOPERATIVE DIAGNOSIS: Hemoccult positive stool. IV sedation per Anesthesia. PROCEDURE: After informed consent was obtained, the patient, was brought into the endoscopy unit. IV sedation was administered by Anesthesia under continuous monitoring. Digital rectal examination was normal. Initially the Olympus CF-160 flexible video colonoscope was then inserted in the rectum, gradually advanced into the cecum without any difficulty. Careful examination was performed as the scope was gradually being withdrawn. Ileocecal valve and the appendiceal orifice were visualized and appeared normal. Prep was excellent. Mucosa of the cecum, ascending colon, transverse colon, descending colon, sigmoid colon, and rectum appeared normal. Moderate left-sided diverticulosis seen. Retroflexion was performed in the rectum and no lesions were seen. The patient tolerated the procedure well. IMPRESSION: Normal-appearing colon from rectum to cecum with no evidence of colorectal neoplasia Moderate left sided diverticulosis. RECOMMENDATIONS: Findings of this examination were discussed with the patient as well as her family. She was advised to be a high-fiber diet and take fiber supplements on a regular basis..
[2019-02-03 08:18] VITALS: BP 139/62
[2019-02-03 08:36] VITALS: PULSE 69
== END 2019-02-03 08:54 | disposition home or self-care (01) ==
LOC: ORWHC2ENDO 06:41
PROVIDERS: ATTEND Internal Medicine Gastroenterology
DX: K57.30 Diverticulosis of large intestine without perforation or abscess without bleeding (principal); Z88.1 Allergy status to other antibiotic agents; Z88.2 Allergy status to sulfonamides; Z88.8 Allergy status to other drugs, medicaments and biological substances; Z95.0 Presence of cardiac pacemaker; I10 Essential (primary) hypertension; E78.5 Hyperlipidemia, unspecified; I48.92 Unspecified atrial flutter; J45.909 Unspecified asthma, uncomplicated; E11.9 Type 2 diabetes mellitus without complications; E07.9 Disorder of thyroid, unspecified; Z86.73 Personal history of transient ischemic attack (TIA), and cerebral infarction without residual deficits; K21.9 Gastro-esophageal reflux disease without esophagitis; Z79.82 Long term (current) use of aspirin; Z79.890 Hormone replacement therapy; Z79.899 Other long term (current) drug therapy
CPT/HCPCS: 45378; J2704

== ENCOUNTER → 2019-08-09 | Outpatient (CLI) | payer MEDICARE, BC ==
[2019-08-09 09:03] LABS: HCT 42.1 % (34.0-46.0); HGB 14.5 gm/dL (11.4-16.0); MCH 29.8 pg (25.0-35.0); MCHC 34.4 g/dL (31.0-37.0); MCV 86.8 fL (80.0-100.0); Mean Platelet Volume 7.5; Platelet Count 250 k/uL (150-450); RBC 4.85 m/uL (3.80-5.40); RDW 15.3 % (11.5-15.5); WBC 8.1 k/uL (3.8-10.6)
[2019-08-09 09:11] LABS: Potassium 4.1 mmol/L (3.5-5.1)
== END | disposition home or self-care (01) ==
LOC: LABPAT 08:11
PROVIDERS: ATTEND Internal Medicine Clinical Cardiac Electrophysiology
DX: Z01.812 Encounter for preprocedural laboratory examination (principal); I48.0 Paroxysmal atrial fibrillation; I49.5 Sick sinus syndrome
CPT/HCPCS: 36415; 80051; 82565; 82947; 84520; 85027

== ENCOUNTER 2019-08-19 12:22 | Day surgery (SDC) | payer MEDICARE, BC ==
[2019-08-17 14:01] VITALS: BMI 32.7
[~2019-08-19 12:22] MED LIST changes: -LACTATED RINGERS 1,000 ML IV SCH; -LIDOCAINE 1% 20 ML VIAL (10MG/ML) FOR IV START INTRADERMA PRN; +diphenhydrAMINE 50 MG/ML 1 ML VIAL IVP ONE; +methylPREDNISolone SOD SUCCI 125 MG/2 ML VIAL IV ONE
[2019-08-19] MEDS: SODIUM CHLORIDE 0.9% 1,000 ML IV SCH (13:00)
[2019-08-19 13:02] LABS: Glucose,Whole Blood 100 mg/dL (75-99)
[2019-08-19] MEDS ORDERED: ONDANSETRON 4 MG/2 ML VIAL ONE (13:09)
[2019-08-19] MEDS ORDERED: MIDAZOLAM 2 MG/2 ML VIAL IVP ONE (13:15)
[2019-08-19] MEDS ORDERED: ATROPINE SULFATE 0.1 MG/ML 10ML SYRINGE ONE (15:19)
[2019-08-19] MEDS ORDERED: fentaNYL (PF) 50 MCG/ML 2 ML AMP ONE (15:19)
[2019-08-19] MEDS ORDERED: MIDAZOLAM 2 MG/2 ML VIAL ONE (15:19)
[2019-08-19] MEDS ORDERED: PROPOFOL 10 MG/ML 20 ML VIAL IV ONE (15:19)
[2019-08-19] MEDS ORDERED: LIDOCAINE 1% INJ 10MG/ML (20 ML MDV) ONE (15:32)
[2019-08-19] MEDS ORDERED: LIDOCAINE 1% INJ 10MG/ML (20 ML MDV) SQ ONE (15:48)
[2019-08-19] MEDS ORDERED: HEPARIN SODIUM (1,000 UNIT/ML) 1,000 UNIT in SODIUM CHLORIDE 0.9% 1,000 ML IRRIGATION ONE (16:11)
--- NOTE | 2019-08-19 16:19 | P.PCN ---
Preoperative Diagnosis: Indication for the procedure Paroxysmal A. fib with RVR, symptomatic Failed antiarrhythmic drug therapy History of tachybradycardia syndrome status post dual-chamber pacemaker implant in the past Procedure: Device interrogation with reprogramming prior to the procedure AV Node Ablation/modification. Device interrogation with reprogramming postprocedure Patient was brought to the EP lab in a fasting state. Written, informed consent was obtained prior to the procedure. Access was obtained, sheath placed in right femoral vein. 1. Preprocedure device interrogation and reprogramming Device interrogation with reprogramming performed. Rate responsiveness was turned off and the pacing rate was reprogrammed to a backup mode prior to ablation. Tachycardia detections turned off. Lead impedance is documented, sensing and pacing thresholds performed prior to the procedure Backup pacing, VVI 40 bpm 3. AV node ablation A Mapping/Ablation catheter was placed and right-sided AV node radiofrequency ablation/modification was performed. Complete heart block was achieved with occasional junctional escape rhythm above 40 bpm 4. Device programming postprocedure Post ablation, device reprogramming was performed. Base Pacing rate was programmed to 90 bpm. Atrial pacing threshold 0.75 V at 0.4 ms, P waves 2.6impedance 4 and 60 ohms Interval pacing threshold 0.6 V at 0.4 ms, pacing impedance 680 ohms Reprogrammed to DDDR 90-1:30 within normal limit lead Patient's device was reprogrammed and the interrogated. RF mode turned on Vascular sheaths were removed at the end of the procedure, hemostasis was assured, the patient was then transferred to recovery room/telemetry in stable condition. Conclusions: Successful ablation of the AV node. Plan: Pacing at 90 bpm for at least 3 weeks. Telemetry monitoring for 24-48 hours. Continue anticoagulation. Patient tolerated the procedure well without any acute complications
[2019-08-19] MEDS ORDERED: ACETAMINOPHEN TAB 325 MG TAB PO PRN (16:22)
--- NOTE | 2019-08-19 16:34 | P.HPCAR ---
History of Present Illness This is Dr. Suarez dictating an H&P on this patient The patient was interviewed and examined by me IMPRESSION / ASSESSMENT: Symptomatic atrial fibrillation with RVR despite flecainide and high dose verapamil Intolerant of flecainide and verapamil Known CAD nonobstructive Normal stress test recently Sick sinus syndrome status post dual-chamber pacemaker implant Hypertension Type 2 diabetes Dyslipidemia PLAN: AV node modification Continuation of ELIQUIS Discontinue flecainide and verapamil thereafter HPI Patient continues to have episodes of palpitations. Documented atrial fibrillation with RVR despite flecainide and high dose verapamil Quite symptomatic from this Intolerant of A. fib with RVR Also intolerant of medications to treat RVR Today she denies any chest discomfort dizziness lightheadedness palpitations No cough no breathing trouble orthopnea PND ROS: No fever chills or rigors, no cough, phlegm or expectoration, no nausea, vomiting or diarrhea, no hematuria, dysuria, no musculoskeletal complaints, no strokes or seizures, no skin lesions. EXAMINATION: Afebrile 97.6F, pulse rate in the 70s sinus mechanism Elevated blood pressure 218/88 mmHg Breath sounds are clear no rhonchi no crackles Heart sounds are normal and regular no murmurs Abdomen soft Extremities warm REVIEW OF LABS, ECG & MEDICAL DATA Dual-chamber pacemaker was interrogated. Dual-chamber pacemaker functioning normally Baseline atrial pacing threshold 0.75 V at 0.4 ms, P waves were then 5 mV pacing impedance 490 ohms Ventricular pacing threshold 0.75 V at 0.4 ms, R waves 12 mV pacing impedance 700 ohms Physical Exam Vitals: Vital Signs Temp Pulse Resp BP Pulse Ox 08/19/19 12:50 97.6 F 72 18 218/88 100 Intake and Output 08/19/19 08/19/19 08/19/19 06:59 14:59 22:59 Intake Total 100 200 Balance 100 200 Intake: IV 100 200 Past Medical History Past Medical History: Atrial Flutter, Asthma, CVA/TIA, Diabetes Mellitus, Eye Disorder, GERD/Reflux, GI Bleed, Hyperlipidemia, Hypertension, Liver Disease, Osteoarthritis (OA), Thyroid Disorder Additional Past Medical History / Comment(s): Palpitations for years, hypothyroid, 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 History of Any Multi-Drug Resistant Organisms: None Reported Past Surgical History: Heart Catheterization, Hysterectomy, Joint Replacement, Orthopedic Surgery, Pacemaker Additional Past Surgical History / Comment(s): Cataracts, eye injections for macular degeneration q 5 weeks, bilateral knee arthroscopies and Shukri total knees., 08/07/16 cardiac cath., loop recorder 08/2016 and removed, egd, Eye lid surgery (07/22/2019)., Temporal Artery Bx (right 07/22/2018 & left 10/21/2018) Past Anesthesia/Blood Transfusion Reactions: Motion Sickness, Postoperative Nausea & Vomiting (PONV) Type of Cardiac Device: Permanent Pacemaker Device Placement Date:: 06/2018 Past Psychological History: Anxiety Additional Psychological History / Comment(s): . Smoking Status: Never smoker Past Alcohol Use History: None Reported Past Drug Use History: None Reported - Past Family History Father Family Medical History: Congestive Heart Failure (CHF) Additional Family Medical History / Comment(s): Father of CHF at the age of 89yrs. Mother Family Medical History: CVA/TIA, Osteoarthritis (OA) Additional Family Medical History / Comment(s): Mother of a CVA at the age of 89yrs. Brother(s) Family Medical History: Cancer Additional Family Medical History / Comment(s): lymphoma Sister(s) Family Medical History: Cancer Additional Family Medical History / Comment(s): melanoma Physical Examination Vital Signs Temp Pulse Resp BP Pulse Ox 08/19/19 12:50 97.6 F 72 18 218/88 100 Intake and Output 08/19/19 08/19/19 08/19/19 06:59 14:59 22:59 Intake Total 100 200 Balance 100 200 Intake: IV 100 200 Results Current Medications Generic Name Dose Route Start Last Admin Trade Name Freq PRN Reason Stop Dose Admin Acetaminophen 650 mg 08/19/19 16:22 Tylenol Tab PO Q6HR PRN Mild Pain Apixaban 5 mg 08/19/19 21:00 Eliquis PO BID SWATI Aspirin 81 mg 08/20/19 09:00 Aspirin PO MOWEFR [facility] Atorvastatin Calcium 40 mg 08/19/19 21:00 Lipitor PO HS SWATI Budesonide/Formoterol Fumarate 2 puff 08/19/19 20:00 Symbicort 80-4.5 Mcg Inhaler INHALATION RT-BID SWATI Hydrochlorothiazide 25 mg 08/20/19 09:00 Hydrodiuril PO DAILY SWATI Lactated Ringer's 1,000 mls @ 20 mls/hr 08/18/19 21:30 Lactated Ringers IV .Q24H SWATI Sodium Chloride 1,000 mls @ 20 mls/hr 08/19/19 06:02 08/19/19 13:00 Saline 0.9% IV 200 mls .Q24H SWATI Administration Acetaminophen 1,000 mg/ IV 100 mls @ 400 mls/hr 08/19/19 16:22 Solution IVPB 08/19/19 16:36 ONCE ONE Levothyroxine Sodium 50 mcg 08/20/19 09:00 Synthroid PO DAILY [facility] Non-Formulary Medication 300 mg 08/19/19 17:30 Irbesartan [Irbesartan] PO W/SUPPER [facility] Sodium Chloride 12 ml 08/19/19 21:00 Saline Flush IV Q12HR SWATI Intake and Output 08/19/19 08/19/19 08/19/19 06:59 14:59 22:59 Intake Total 100 200 Balance 100 200 Intake: IV 100 200
[2019-08-19 16:56] LABS: Glucose,Whole Blood 118 mg/dL (75-99)
[2019-08-19] MEDS ORDERED: ACETAMINOPHEN IV (For NPO) 1,000 MG in EMPTY BAG 1 BAG IVPB ONE (17:00)
[2019-08-19] MEDS ORDERED: LOSARTAN 50 MG TAB PO SCH (17:30)
[2019-08-19] MEDS: LACTATED RINGERS 1,000 ML IV SCH ×2 (18:11→22:47)
[2019-08-19] MEDS: SYMBICORT 80-4.5 MCG INHALER INHALATION SCH (20:03)
[2019-08-19] MEDS: APIXABAN 5 MG TAB PO SCH (20:37)
[2019-08-19 20:55] LABS: Glucose,Whole Blood 223 mg/dL (75-99)
[2019-08-19] MEDS ORDERED: ATORVASTATIN 40 MG TAB PO SCH (21:00)
[2019-08-19] MEDS: INSULIN ASPART (NovoLOG) 100 UNIT/ML VIAL SQ SCH (21:01)
[2019-08-20 04:04] VITALS: PULSE 90
[2019-08-20 06:05] LABS: Glucose,Whole Blood 142 mg/dL (75-99)
[2019-08-20] MEDS: INSULIN ASPART (NovoLOG) 100 UNIT/ML VIAL SQ SCH (06:12)
[2019-08-20] MEDS: SODIUM CHLORIDE 0.9% 1,000 ML IV SCH (06:13)
[2019-08-20] MEDS ORDERED: LEVOTHYROXINE 50 MCG TAB PO SCH (06:30)
[2019-08-20] MEDS: APIXABAN 5 MG TAB PO SCH (07:53)
--- NOTE | 2019-08-20 08:08 | P.DS ---
Providers Attending physician: Frank Suarez Primary care physician: [facility] Course: Patient is doing well. She denies any chest discomfort dizziness lightheadedness palpitations. She feels well She's had no problems with groins Breath sounds are clear no rhonchi no crackles Heart sounds S1 and S2 are normal and regular 90 beats a minute Abdomen soft Extended is warm no edema Groin is healed well there is no hematoma No JVD Impression Paroxysmal atrial fibrillation RVR which has failed antiarrhythmic drug therapy as well as AV pallavi blocking drugs Intolerant of medications to treat atrial fibrillation Status post AV junction ablation yesterday Her dual-chamber pacemaker has been programmed to 90-130 bpm for the next 3 weeks She will continue anticoagulation lifelong We'll see her in the office in about 3 weeks to reprogrammed the device She will go home after ablating the hallways, discharge masses os to call physical therapy to help her ambulate As long as a groins are okay and she seemed and currently stable should go home Flecainide discontinued permanently Verapamil discontinued Long-term plan follow LV function post AV junction ablation Patient is a dual-chamber pacemaker Patient Condition at Discharge: Stable Plan - Discharge Summary Discharge Rx Participant: No New Discharge Prescriptions: Discontinued Verapamil HCl [Verapamil ER] 240 mg PO HS Flecainide [Tambocor] 50 mg PO Q12HR No Action Meclizine [Antivert] 25 mg PO DAILY PRN PRN Reason: dizziness Atorvastatin Calcium [Lipitor] 40 mg PO HS Aspirin 81 mg PO MOWEFR Levothyroxine Sodium [Synthroid] 50 mcg PO DAILY ALPRAZolam 1 mg PO BID PRN PRN Reason: Anxiety Insulin Aspart [NovoLOG Flexpen] See Protocol SQ BID Albuterol Inhaler [Ventolin Hfa Inhaler] 1 - 2 puff INHALATION RT-Q4H PRN PRN Reason: Shortness Of Breath Fluticasone/Salmeterol [Advair 100-50 Diskus] 1 puff INHALATION RT-BID Vit C/E/Zn/Coppr/Lutein/Zeaxan [Preservision Areds 2 Softgel] 1 cap PO BID Irbesartan 300 mg PO W/SUPPER Cholecalciferol [Vitamin D3] 1,000 unit PO DAILY Ranitidine HCl [Zantac] 150 mg PO BID PRN PRN Reason: Heartburn Apixaban [Eliquis] 5 mg PO BID Pediatric Multivitamin No.30 [Multivitamin Children's Gummies] 1 each PO DAILY Hydrochlorothiazide 25 mg PO DAILY Omeprazole [PriLOSEC] 40 mg PO DAILY Discharge Medication List Aspirin 81 mg PO MOWEFR 05/04/15 [History] Atorvastatin Calcium [Lipitor] 40 mg PO HS 05/04/15 [History] Levothyroxine Sodium [Synthroid] 50 mcg PO DAILY 05/04/15 [History] Meclizine [Antivert] 25 mg PO DAILY PRN 05/04/15 [History] ALPRAZolam 1 mg PO BID PRN 08/23/16 [History] Albuterol Inhaler [Ventolin Hfa Inhaler] 1 - 2 puff INHALATION RT-Q4H PRN 08/23/16 [History] Insulin Aspart [NovoLOG Flexpen] See Protocol SQ BID 08/23/16 [History] Fluticasone/Salmeterol [Advair 100-50 Diskus] 1 puff INHALATION RT-BID 02/16/17 [History] Vit C/E/Zn/Coppr/Lutein/Zeaxan [Preservision Areds 2 Softgel] 1 cap PO BID 02/16/17 [History] Irbesartan 300 mg PO W/SUPPER 06/17/17 [History] Cholecalciferol [Vitamin D3] 1,000 unit PO DAILY 01/29/19 [History] Ranitidine HCl [Zantac] 150 mg PO BID PRN 01/29/19 [History] Apixaban [Eliquis] 5 mg PO BID 08/17/19 [History] Hydrochlorothiazide 25 mg PO DAILY 08/17/19 [History] Omeprazole [PriLOSEC] 40 mg PO DAILY 08/17/19 [History] Pediatric Multivitamin No.30 [Multivitamin Children's Gummies] 1 each PO DAILY 08/17/19 [History] Follow up Appointment(s)/Referral(s): [facility] [Provider Group] - 09/08/19 4:00 pm (Friday -device check only) Frank Suarez MD [STAFF PHYSICIAN] - 12/22/19 1:30 pm (Friday) Patient Instructions/Handouts: Cardiac Ablation (DC) Activity/Diet/Wound Care/Special Instructions: Post EP study - Ablation instructions 1. Keep access sites dry for 2 days. 2. No heavy lifting or straining for 2 days. 3. Avoid bending the hips repeatedly for 2 days. 4. You may go up and down stairs slowly Call if the following is noted 1. Bleeding, increasing swelling or pain at the access sites. 2. Increasing chest discomfort, especially upon taking a deep breath. 3. Increasing shortness of breath, at rest or with exertion. 4. Undue cough / phlegm 5. Difficulty or pain while swallowing. 6. Pain or change in color in the extremities. 7. Fever, chills, rigors. 8. Increasing headache or neurologic symptoms. 9. Dizziness, fainting, palpitations Start flecainide Stop verapamil and continue ELIQUIS continue all other cardiac medications Follow-up in the device clinic in 3 weeks Follow-up with Dr. Suarez/Lady Colón/Itzel Luo in 3-4 months
[2019-08-20 08:14] VITALS: BP 140/80; RESP 17; TEMP 98.4
[2019-08-20] MEDS ORDERED: HYDROCHLOROTHIAZIDE 25 MG TAB PO SCH (09:00)
[2019-08-20] MEDS ORDERED: ASPIRIN 81 MG PO SCH (09:00)
[2019-08-20] MEDS: SYMBICORT 80-4.5 MCG INHALER INHALATION SCH (09:04)
== END 2019-08-20 10:15 | disposition home health service (06) ==
LOC: CATHEP 12:22 → 3SCARD 16:15 → CATHEP 08-20 10:15
PROVIDERS: ATTEND Internal Medicine Clinical Cardiac Electrophysiology
DX: I48.0 Paroxysmal atrial fibrillation (principal); I48.92 Unspecified atrial flutter; J45.909 Unspecified asthma, uncomplicated; E11.9 Type 2 diabetes mellitus without complications; H35.30 Unspecified macular degeneration; K21.9 Gastro-esophageal reflux disease without esophagitis; K76.9 Liver disease, unspecified; H93.19 Tinnitus, unspecified ear; K44.9 Diaphragmatic hernia without obstruction or gangrene; G89.29 Other chronic pain; M54.9 Dorsalgia, unspecified; R32 Unspecified urinary incontinence; Z95.0 Presence of cardiac pacemaker; E78.5 Hyperlipidemia, unspecified; I10 Essential (primary) hypertension; M19.90 Unspecified osteoarthritis, unspecified site; I69.323 Fluency disorder following cerebral infarction; I69.354 Hemiplegia and hemiparesis following cerebral infarction affecting left non-dominant side; Z90.710 Acquired absence of both cervix and uterus; Z98.49 Cataract extraction status, unspecified eye; Z96.653 Presence of artificial knee joint, bilateral; F41.9 Anxiety disorder, unspecified; Z82.3 Family history of stroke; Z82.69 Family history of other diseases of the musculoskeletal system and connective tissue; Z82.49 Family history of ischemic heart disease and other diseases of the circulatory system; Z79.01 Long term (current) use of anticoagulants; Z79.82 Long term (current) use of aspirin; Z79.890 Hormone replacement therapy; Z79.4 Long term (current) use of insulin; Z79.51 Long term (current) use of inhaled steroids; Z79.899 Other long term (current) drug therapy; Z88.2 Allergy status to sulfonamides; Z88.8 Allergy status to other drugs, medicaments and biological substances; Z88.1 Allergy status to other antibiotic agents; Z91.041 Radiographic dye allergy status; Z91.010 Allergy to peanuts
CPT/HCPCS: 94640 ×2; 97162; 97165; 93650; C1894; C1769; C1893; C1732; J2250; J1200; J2930; J0690; J2405; J2001; J0461; J3010; J1644; J0131; J2704

== ENCOUNTER → 2019-12-22 | Outpatient (CLI) | payer MEDICARE, BC ==
[2019-12-22 16:53] LABS: Microalbumin Creatinine Ratio <30 mg/g Creat (0-30); Urine Creatinine 20.9 mg/dL
[2019-12-22 17:30] LABS: African American GFR (CKD) 69.5 (60.0-200.0); Albumin 4.2 g/dL (3.80-4.90); Albumin/Globulin Ratio 1.91 (1.60-3.17); Anion Gap 12.8 mmol/L (4.00-12.00); BUN/Creat Ratio 21.11 Ratio (12.00-20.00); Calcium 9.2 mg/dL (8.7-10.3); Carbon Dioxide 24.2 mmol/L (21.6-31.8); Chol/HDL Ratio 2.75; Globulin 2.2 g/dL (1.6-3.3); LDL Cholesterol,Calculated 65.6 mg/dL (0.0-131.0); Potassium 4.5 mmol/L (3.5-5.5); Total Bilirubin 0.6 mg/dL (0.2-1.2); Total Protein 6.4 g/dL (6.2-8.2); VLDL Calculation 18.4 mg/dL (5.00-40.00)
[2019-12-22 20:38] LABS: Hemoglobin A1C 5.7 % (4.0-6.0)
== END | disposition home or self-care (01) ==
LOC: LABWHC1 07:57
PROVIDERS: ATTEND Internal Medicine Endocrinology, Diabetes & Metabolism
DX: E11.69 Type 2 diabetes mellitus with other specified complication (principal)
CPT/HCPCS: 36415; 80053; 80061; 82043; 82570; 83036; 84443

== ENCOUNTER 2020-01-17 17:24 | Emergency (ER) | payer MEDICARE, BC ==
[2020-01-17 17:36] VITALS: RESP 16
[2020-01-17] MEDS ORDERED: methylPREDNISolone SOD SUCCI 125 MG/2 ML VIAL IV STA (17:48)
[2020-01-17] MEDS ORDERED: FAMOTIDINE 20 MG/2 ML VIAL IV STA (17:48)
[2020-01-17] MEDS ORDERED: diphenhydrAMINE 50 MG/ML 1 ML VIAL IVP STA (17:48)
--- NOTE | 2020-01-17 18:01 | ED ---
General Adult HPI - General Chief complaint: Allergic Reaction Stated complaint: lip swelling/slurred speech Time Seen by Provider: 01/17/20 17:43 Source: patient, family, RN notes reviewed, old records reviewed Mode of arrival: wheelchair Limitations: no limitations - History of Present Illness Initial comments: 79 -year-old female presenting with suspected ALLERGIC reaction. Patient began to have lower lip swelling shortly after eating black olives. This occurred within minutes. She previously did not have an ALLERGY to pollens. Denies any new medications. She has a known ALLERGY to lisinopril, she is not on any MITALI inhibitor at this time. Denies significant dyspnea, no vomiting or abdominal pain. No tongue swelling. Swelling is isolated to the lower lip. - Related Data Home Medications Medication Instructions Recorded Confirmed Aspirin 81 mg PO MOWEFR 05/04/15 08/19/19 Atorvastatin Calcium [Lipitor] 40 mg PO HS 05/04/15 08/19/19 Levothyroxine Sodium [Synthroid] 50 mcg PO DAILY 05/04/15 08/19/19 Meclizine [Antivert] 25 mg PO DAILY PRN 05/04/15 08/17/19 ALPRAZolam 1 mg PO BID PRN 08/23/16 08/19/19 Albuterol Inhaler [Ventolin Hfa 1 - 2 puff INHALATION RT-Q4H PRN 08/23/16 08/17/19 Inhaler] Insulin Aspart [NovoLOG Flexpen] See Protocol SQ BID 08/23/16 08/19/19 Fluticasone/Salmeterol [Advair 1 puff INHALATION RT-BID 02/16/17 08/19/19 100-50 Diskus] Vit C/E/Zn/Coppr/Lutein/Zeaxan 1 cap PO BID 02/16/17 08/19/19 [Preservision Areds 2 Softgel] Irbesartan 300 mg PO W/SUPPER 06/17/17 08/19/19 Cholecalciferol [Vitamin D3] 1,000 unit PO DAILY 01/29/19 08/19/19 Ranitidine HCl [Zantac] 150 mg PO BID PRN 01/29/19 08/19/19 Apixaban [Eliquis] 5 mg PO BID 08/17/19 08/19/19 Hydrochlorothiazide 25 mg PO DAILY 08/17/19 08/19/19 Omeprazole [PriLOSEC] 40 mg PO DAILY 08/17/19 08/19/19 Pediatric Multivitamin No.30 1 each PO DAILY 08/17/19 08/19/19 [Multivitamin Children's Gummies] Previous Rx's Medication Instructions Recorded diphenhydrAMINE [Benadryl] 25 mg PO BID #10 capsule 01/17/20 methylPREDNISolone Dose Pack 4 mg PO DIRECTED #21 package 01/17/20 [Medrol Dose Pack] Allergies Allergy/AdvReac Type Severity Reaction Status Date / Time doxycycline [From Vibramycin] Allergy Unknown Rash/Hives Verified 01/17/20 17:36 MITALI Inhibitors Allergy Unknown Verified 01/17/20 17:36 erythromycin base Allergy Rash/Hives Verified 01/17/20 17:36 iodine Allergy Unknown Verified 01/17/20 17:36 lisinopril Allergy Unknown Verified 01/17/20 17:36 moexipril HCl [From Univasc] Allergy Cough, Verified 01/17/20 17:36 choking sulfamethoxazole Allergy Rash/Hives Verified 01/17/20 17:36 [From Bactrim] trimethoprim [From Bactrim] Allergy Rash/Hives Verified 01/17/20 17:36 cat scan dye Allergy Rash/Hives Uncoded 01/17/20 17:36 Review of Systems ROS Statement: Those systems with pertinent positive or pertinent negative responses have been documented in the HPI. ROS Other: All systems not noted in ROS Statement are negative. 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 History of Any Multi-Drug Resistant Organisms: None Reported Past Surgical History: Heart Catheterization, Hysterectomy, Joint Replacement, Orthopedic Surgery, Pacemaker Additional Past Surgical History / Comment(s): bilateral cataract surgery, eye injections for macular degeneration q 5 weeks, bilateral knee arthroscopies and arthroplasties, 08/07/16 cardiac cath-normal. loop recorder 08/2016 and removed, egd-12/14/18 Past Anesthesia/Blood Transfusion Reactions: Motion Sickness, Postoperative Nausea & Vomiting (PONV) Type of Cardiac Device: Permanent Pacemaker Device Placement Date:: 06/2018 Past Psychological History: Anxiety Smoking Status: Never smoker Past Alcohol Use History: None Reported Past Drug Use History: None Reported - Past Family History Father Family Medical History: Congestive Heart Failure (CHF) Additional Family Medical History / Comment(s): Father of CHF at the age of 89yrs. Mother Family Medical History: CVA/TIA, Osteoarthritis (OA) Additional Family Medical History / Comment(s): Mother of a CVA at the age of 89yrs. Brother(s) Family Medical History: Cancer Additional Family Medical History / Comment(s): lymphoma Sister(s) Family Medical History: Cancer Additional Family Medical History / Comment(s): melanoma General Exam Limitations: no limitations General appearance: alert, in no apparent distress Head exam: Present: atraumatic, normocephalic Eye exam: Present: normal appearance, PERRL ENT exam: Present: other (Angioedema, swelling of the lower lip, bilateral. No swelling of the upper lip, no swelling of the tongue) Respiratory exam: Present: normal lung sounds bilaterally. Absent: respiratory distress, wheezes, stridor Cardiovascular Exam: Present: regular rate, normal rhythm GI/Abdominal exam: Present: soft. Absent: distended, tenderness, guarding Extremities exam: Present: normal inspection, normal capillary refill. Absent: pedal edema Neurological exam: Present: alert, oriented X3. Absent: motor sensory deficit Psychiatric exam: Present: normal affect, normal mood Skin exam: Present: warm, dry, intact Course Vital Signs 01/17/20 17:34 Temperature 98.4 F Pulse Rate 89 Respiratory 16 Rate Blood Pressure 156/71 O2 Sat by Pulse 97 Oximetry Medical Decision Making - Medical Decision Making Patient observed for 3 hours in the emergency department, she has some improvement in lip swelling, no worsening dyspnea, no stridor, no tongue swelling. She is discharged home instructed to take Benadryl, and given a steroid pack. She will avoid olives. Return with worsening or changing sympto ms. - Lab Data Result diagrams: 01/17/20 17:48 01/17/20 17:48 Lab Results 01/17/20 01/17/20 01/17/20 Range/Units 17:48 17:48 17:48 WBC 8.2 (3.8-10.6) k/uL RBC 4.63 (3.80-5.40) m/uL Hgb 12.7 (11.4-16.0) gm/dL Hct 39.4 (34.0-46.0) % MCV 85.1 (80.0-100.0) fL MCH 27.5 (25.0-35.0) pg MCHC 32.4 (31.0-37.0) g/dL RDW 15.5 (11.5-15.5) % Plt Count 185 (150-450) k/uL Neutrophils % 61 % Lymphocytes % 30 % Monocytes % 5 % Eosinophils % 2 % Basophils % 0 % Neutrophils # 5.0 (1.3-7.7) k/uL Lymphocytes # 2.4 (1.0-4.8) k/uL Monocytes # 0.4 (0-1.0) k/uL Eosinophils # 0.1 (0-0.7) k/uL Basophils # 0.0 (0-0.2) k/uL PT 9.7 (9.0-12.0) sec INR 0.9 (<1.2) APTT 26.0 (22.0-30.0) sec Sodium 140 (137-145) mmol/L Potassium 4.1 (3.5-5.1) mmol/L Chloride 105 (98-107) mmol/L Carbon Dioxide 27 (22-30) mmol/L Anion Gap 8 mmol/L BUN 27 H (7-17) mg/dL Creatinine 0.90 (0.52-1.04) mg/dL Est GFR (CKD-EPI)AfAm 70 (>60 ml/min/1.73 sqM) Est GFR (CKD-EPI)NonAf 60 (>60 ml/min/1.73 sqM) Glucose 100 H (74-99) mg/dL Calcium 9.3 (8.4-10.2) mg/dL Total Bilirubin 0.3 (0.2-1.3) mg/dL AST 25 (14-36) U/L ALT 15 (4-34) U/L Alkaline Phosphatase 125 (38-126) U/L Total Protein 7.0 (6.3-8.2) g/dL Albumin 4.0 (3.5-5.0) g/dL Disposition Clinical Impression: Food allergy Disposition: HOME SELF-CARE Condition: Good Instructions (If sedation given, give patient instructions): Food Allergy (ED) Prescriptions: diphenhydrAMINE [Benadryl] 25 mg PO BID #10 capsule methylPREDNISolone Dose Pack [Medrol Dose Pack] 4 mg PO DIRECTED #21 package Is patient prescribed a controlled substance at d/c from ED?: No Referrals: Mark Macias DO [Primary Care Provider] - 1-2 days Time of Disposition: 20:21
[2020-01-17 18:12] LABS: Basophils % (A) 0 %; Eosinophils # (A) 0.1 k/uL (0-0.7); Eosinophils % (A) 2 %; HCT 39.4 % (34.0-46.0); HGB 12.7 gm/dL (11.4-16.0); Lymphocytes # (A) 2.4 k/uL (1.0-4.8); Lymphocytes % (A) 30 %; MCH 27.5 pg (25.0-35.0); MCHC 32.4 g/dL (31.0-37.0); MCV 85.1 fL (80.0-100.0); Monocytes # (A) 0.4 k/uL (0-1.0); Monocytes % (A) 5 %; Neutrophils % (A) 61 %; Platelet Count 185 k/uL (150-450); RBC 4.63 m/uL (3.80-5.40); RDW 15.5 % (11.5-15.5); WBC 8.2 k/uL (3.8-10.6)
[2020-01-17 18:22] LABS: Calcium 9.3 mg/dL (8.4-10.2); Potassium 4.1 mmol/L (3.5-5.1); Total Bilirubin 0.3 mg/dL (0.2-1.3)
[2020-01-17 18:32] LABS: INR 0.9 (<1.2); Prothrombin Time 9.7 sec (9.0-12.0)
[2020-01-17 20:37] VITALS: BP 138/66; PULSE 90; TEMP 97.9
== END 2020-01-17 20:42 | disposition home or self-care (01) ==
LOC: EC 17:24
DX: T78.1XXA Other adverse food reactions, not elsewhere classified, initial encounter (principal); T78.3XXA Angioneurotic edema, initial encounter; E03.9 Hypothyroidism, unspecified; E11.9 Type 2 diabetes mellitus without complications; M19.90 Unspecified osteoarthritis, unspecified site; G89.29 Other chronic pain; F41.9 Anxiety disorder, unspecified; Z88.1 Allergy status to other antibiotic agents; Z88.2 Allergy status to sulfonamides; Z88.8 Allergy status to other drugs, medicaments and biological substances; Z91.041 Radiographic dye allergy status; Z79.01 Long term (current) use of anticoagulants; Z79.4 Long term (current) use of insulin; Z79.82 Long term (current) use of aspirin; Z79.890 Hormone replacement therapy; Z79.899 Other long term (current) drug therapy; Z98.42 Cataract extraction status, left eye; Z98.41 Cataract extraction status, right eye; Z95.0 Presence of cardiac pacemaker; Z96.653 Presence of artificial knee joint, bilateral; Z86.73 Personal history of transient ischemic attack (TIA), and cerebral infarction without residual deficits
CPT/HCPCS: 99284; 96374; 96375 ×2; 36415; 80053; 85025; 85610; 85730; J1200; J2930

== ENCOUNTER → 2020-05-26 | Outpatient (CLI) | payer MEDICARE, BC ==
--- NOTE | 2020-05-26 14:50 | NM ---
EXAMINATION TYPE: NM bone scan whole body DATE OF EXAM: 05/26/2020 COMPARISON: Outside lumbar spine plain film HISTORY: Ankylosing spondylitis, low back pain Delayed whole-body scanning was performed following the injection of 23.9 mCi Tc 99m MDP. Images wer e acquired 3 hours post injection. FINDINGS: Bilateral knee prostheses are present. There is some increased radiotracer adjacent to the femoral co mponent of the right knee. Increased uptake at the bilateral ankles is likely degenerative in nature. There is a tiny focal radiotracer within the occipital region on posterior views. Minimal increased signal at the T11 and T12 pedicles on the left T12 pedicle on the right may be pres ent which can be related to some degenerative change at the thoracolumbar junction. Suspicious uptake to suggest metastatic disease is not evident. IMPRESSION: 1. Mild uptake at the thoracolumbar junction likely degenerative in nature. 2. Uptake at the right distal femoral prosthesis. Plain film correlation is recommended. 3. Uptake at the bilateral ankles most likely degenerative in nature
== END | disposition home or self-care (01) ==
LOC: RADNMMAIN 10:18
PROVIDERS: ATTEND Physical Medicine & Rehabilitation
DX: M54.5 Low back pain (principal); M54.16 Radiculopathy, lumbar region; M47.817 Spondylosis without myelopathy or radiculopathy, lumbosacral region; R53.1 Weakness
CPT/HCPCS: 78306; A9503

== ENCOUNTER → 2020-06-10 | Outpatient (CLI) | payer MEDICARE, BC ==
--- NOTE | 2020-06-12 07:45 | CT ---
EXAMINATION TYPE: CT lumbar spine wo con DATE OF EXAM: 06/10/2020 COMPARISON: 07/08/2014 HISTORY: Low back pain extending to legs. CT DLP: 1168.7 mGycm CONTRAST: Normal TECHNIQUE: CT of the lumbar spine is performed on a spiral scan at 3 mm thick sections. Reconstructed images are performed in the coronal and sagittal planes. FINDINGS: T11-T12: No focal disc herniation or significant disc bulge is evident. No spinal canal stenosis or n eural foraminal stenosis is present. T12-L1: No focal disc herniation or significant disc bulge is evident. No spinal canal stenosis or neural foraminal stenosis is present. L1-L2: Mild disc bulge with anterior thecal sac contact. No AP spinal canal stenosis or neural forami nal stenosis. L2-L3: Disc space narrowing is present. No focal disc herniation or significant disc bulge is evident . No spinal canal stenosis present. Neural foramen are patent. L3-L4: There is loss of disc height through this level. No AP spinal canal stenosis present. Some mod erate right foraminal stenosis may be present. There is mild retrolisthesis of L3 posterior L4. L4-L5: Facet hypertrophy is present with ligamentum flavum laxity. This is causing lateral canal narr owing. Mild disc bulging is present with anterior thecal sac compression. Some mild left foraminal st enosis may be present. L5-S1: No focal disc herniation or significant disc bulge is evident. No spinal canal stenosis or n eural foraminal stenosis is present There is a scoliosis present. Minimal retrolisthesis of L3 on L4 is present which is stable. Large an terior vertebral body spurs are present. Sacroiliac joint degenerative changes are present. COMPARISON: Findings are similar over the interval. IMPRESSION: 1. Lateral canal stenosis secondary to facet hypertrophy and ligamentum flavum laxity L4-5. 2. Scoliosis with multilevel spondylosis. 3. Mild retrolisthesis of L3 on L4 which is stable.
== END | disposition home or self-care (01) ==
LOC: RADCTMAIN 14:49
PROVIDERS: ATTEND Physical Medicine & Rehabilitation
DX: M48.061 Spinal stenosis, lumbar region without neurogenic claudication (principal); M43.16 Spondylolisthesis, lumbar region; M47.26 Other spondylosis with radiculopathy, lumbar region; M41.86 Other forms of scoliosis, lumbar region; M47.817 Spondylosis without myelopathy or radiculopathy, lumbosacral region; M41.26 Other idiopathic scoliosis, lumbar region; K21.9 Gastro-esophageal reflux disease without esophagitis; E11.9 Type 2 diabetes mellitus without complications
CPT/HCPCS: 72131

== ENCOUNTER → 2020-07-06 | Outpatient (CLI) | payer MEDICARE, BC ==
[2020-07-06 17:06] LABS: African American GFR (CKD) 69.5 (60.0-200.0); Anion Gap 7.1 mmol/L (4.00-12.00); BUN/Creat Ratio 32.22 Ratio (12.00-20.00); Calcium 9.1 mg/dL (8.7-10.3); Carbon Dioxide 25.9 mmol/L (21.6-31.8); Magnesium 1.9 mg/dL (1.5-2.4); Potassium 3.9 mmol/L (3.5-5.5)
== END | disposition home or self-care (01) ==
LOC: LABWHC1 07:56
PROVIDERS: ATTEND Nurse Practitioner Adult Health
DX: I10 Essential (primary) hypertension (principal); I48.0 Paroxysmal atrial fibrillation
CPT/HCPCS: 36415; 80048; 83735; 84443; 84481

== ENCOUNTER 2020-07-25 21:25 | Inpatient (IN) | payer MEDICARE, BC ==
[2020-07-25] MEDS ORDERED: ASPIRIN 81 MG PO STA (21:39)
[2020-07-25] MEDS ORDERED: NITROGLYCERIN OINT 1 INCH/GM PACKET TOPICAL STA (21:39)
--- NOTE | 2020-07-25 21:41 | ED ---
General Adult HPI - General Stated complaint: Chest pain Time Seen by Provider: 07/25/20 21:29 Source: patient, EMS, RN notes reviewed, old records reviewed Mode of arrival: EMS Limitations: no limitations - History of Present Illness Initial comments: Patient is a pleasant 79-year-old female presenting to the emergency Department with complaints of chest discomfort. Onset of symptoms was around a month ago. Symptoms have been coming and going. Symptoms became much worse tonight. Discomfort is sharp with some radiation towards the back. Symptoms were severe however are moderate following intervention by EMS. No associated dyspnea, nausea, or diaphoresis. Patient has seen her central office inspector recently for this. No leg pain or leg swelling. - Related Data Home Medications Medication Instructions Recorded Confirmed Aspirin 81 mg PO MOWEFR 05/04/15 08/19/19 Atorvastatin Calcium [Lipitor] 40 mg PO HS 05/04/15 08/19/19 Levothyroxine Sodium [Synthroid] 50 mcg PO DAILY 05/04/15 08/19/19 Meclizine [Antivert] 25 mg PO DAILY PRN 05/04/15 08/17/19 ALPRAZolam 1 mg PO BID PRN 08/23/16 08/19/19 Albuterol Inhaler (Mhu) [Ventolin 1 - 2 puff INHALATION RT-Q4H PRN 08/23/16 08/17/19 Hfa Inhaler] Insulin Aspart [NovoLOG Flexpen] See Protocol SQ BID 08/23/16 08/19/19 Fluticasone/Salmeterol [Advair 1 puff INHALATION RT-BID 02/16/17 08/19/19 100-50 Diskus] Vit C/E/Zn/Coppr/Lutein/Zeaxan 1 cap PO BID 02/16/17 08/19/19 [Preservision Areds 2 Softgel] Irbesartan 300 mg PO W/SUPPER 06/17/17 08/19/19 Cholecalciferol [Vitamin D3] 1,000 unit PO DAILY 01/29/19 08/19/19 Ranitidine HCl [Zantac] 150 mg PO BID PRN 01/29/19 08/19/19 Apixaban [Eliquis] 5 mg PO BID 08/17/19 08/19/19 Omeprazole [PriLOSEC] 40 mg PO DAILY 08/17/19 08/19/19 Pediatric Multivitamin No.30 1 each PO DAILY 08/17/19 08/19/19 [Multivitamin Children's Gummies] hydroCHLOROthiazide 25 mg PO DAILY 08/17/19 08/19/19 Previous Rx's Medication Instructions Recorded diphenhydrAMINE [Benadryl] 25 mg PO BID #10 capsule 01/17/20 methylPREDNISolone Dose Pack 4 mg PO DIRECTED #21 package 01/17/20 [Medrol Dose Pack] Allergies Allergy/AdvReac Type Severity Reaction Status Date / Time doxycycline [From Vibramycin] Allergy Unknown Rash/Hives Verified 07/25/20 22:26 MITALI Inhibitors Allergy Unknown Verified 07/25/20 22:26 erythromycin base Allergy Rash/Hives Verified 07/25/20 22:26 iodine Allergy Unknown Verified 07/25/20 22:26 lisinopril Allergy Unknown Verified 07/25/20 22:26 moexipril HCl [From Univasc] Allergy Cough, Verified 07/25/20 22:26 choking sulfamethoxazole Allergy Rash/Hives Verified 07/25/20 22:26 [From Bactrim] trimethoprim [From Bactrim] Allergy Rash/Hives Verified 07/25/20 22:26 cat scan dye Allergy Rash/Hives Uncoded 07/25/20 22:26 black olives AdvReac Anaphylaxis Uncoded 07/25/20 22:26 Review of Systems ROS Statement: Those systems with pertinent positive or pertinent negative responses have been documented in the HPI. ROS Other: All systems not noted in ROS Statement are negative. Constitutional: Denies: fever Eyes: Denies: eye pain ENT: Denies: ear pain Respiratory: Denies: cough, dyspnea Cardiovascular: Reports: chest pain. Denies: palpitations Endocrine: Denies: fatigue Gastrointestinal: Denies: abdominal pain Genitourinary: Denies: dysuria Musculoskeletal: Denies: back pain Skin: Denies: rash Neurological: Denies: weakness Past Medical History Past Medical History: CVA/TIA Additional Past Medical History / Comment(s): Palpitations for years, NIDDM type II, hypothyroid, CVA 2011 with some L sided weakness, bilateral tinnitis, hepatitis back in the 1950's-unkn which type, hiatal hernia, sinus problems, chronic back pain, epistaxis in past but none lately, macular degeneration bilaterally, generalized arthritis. History of Any Multi-Drug Resistant Organisms: None Reported Past Surgical History: Heart Catheterization, Hysterectomy, Joint Replacement, Orthopedic Surgery, Pacemaker Additional Past Surgical History / Comment(s): bilateral cataract surgery, eye injections for macular degeneration q 5 weeks, bilateral knee arthroscopies and arthroplasties, 08/07/16 cardiac cath-normal. loop recorder 08/2016 and removed, egd-12/14/18 Past Anesthesia/Blood Transfusion Reactions: Motion Sickness, Postoperative Nausea & Vomiting (PONV) Type of Cardiac Device: Permanent Pacemaker Device Placement Date:: 06/2018 Past Psychological History: Anxiety Past Alcohol Use History: None Reported Past Drug Use History: None Reported - Past Family History Father Family Medical History: Congestive Heart Failure (CHF) Additional Family Medical History / Comment(s): Father of CHF at the age of 89yrs. Mother Family Medical History: CVA/TIA, Osteoarthritis (OA) Additional Family Medical History / Comment(s): Mother of a CVA at the age of 89yrs. Brother(s) Family Medical History: Cancer Additional Family Medical History / Comment(s): lymphoma Sister(s) Family Medical History: Cancer Additional Family Medical History / Comment(s): melanoma General Exam Limitations: no limitations General appearance: alert, in no apparent distress Head exam: Present: normocephalic Eye exam: Present: normal appearance Neck exam: Present: normal inspection Respiratory exam: Present: normal lung sounds bilaterally. Absent: chest wall tenderness Cardiovascular Exam: Present: regular rate, normal rhythm Expanded Peripheral pulses: 2+: Radial (R), Radial (L), Dorsalis Pedis (R), Dorsalis Pedis (L) GI/Abdominal exam: Present: soft. Absent: tenderness Extremities exam: Present: normal inspection. Absent: pedal edema, calf tender ness Neurological exam: Present: alert Psychiatric exam: Present: normal affect, normal mood Skin exam: Present: normal color Course Vital Signs 07/25/20 07/25/20 07/25/20 21:39 21:42 22:27 Temperature 98.2 F Pulse Rate 60 68 64 Respiratory 18 18 20 Rate Blood Pressure 155/65 155/75 143/96 O2 Sat by Pulse 97 97 Oximetry EKG Findings - EKG Comments: EKG Findings:: Paced rhythm with rate of 73. CT 204. QRS 138. QT 448. QTC 493. Left axis. Wide QRS complex. No acute ST change. Medical Decision Making - Medical Decision Making Patient reevaluated and resting comfortably in bed. Patient family updated on results and plan. Dr. Verma has been paged for admission covering for Dr. Macias. - Lab Data Result diagrams: 07/25/20 21:57 07/25/20 21:57 Lab Results 07/25/20 07/25/20 07/25/20 Range/Units 21:57 21:57 21:57 WBC 9.2 (3.8-10.6) k/uL RBC 4.53 (3.80-5.40) m/uL Hgb 12.3 (11.4-16.0) gm/dL Hct 37.7 (34.0-46.0) % MCV 83.3 (80.0-100.0) fL MCH 27.1 (25.0-35.0) pg MCHC 32.6 (31.0-37.0) g/dL RDW 16.3 H (11.5-15.5) % Plt Count 190 (150-450) k/uL Neutrophils % 63 % Lymphocytes % 30 % Monocytes % 5 % Eosinophils % 1 % Basophils % 1 % Neutrophils # 5.8 (1.3-7.7) k/uL Lymphocytes # 2.7 (1.0-4.8) k/uL Monocytes # 0.4 (0-1.0) k/uL Eosinophils # 0.1 (0-0.7) k/uL Basophils # 0.1 (0-0.2) k/uL Anisocytosis Slight PT 10.1 (9.0-12.0) sec INR 1.0 (<1.2) APTT 26.7 (22.0-30.0) sec D-Dimer 0.38 (<0.60) mg/L FEU Sodium 140 (137-145) mmol/L Potassium 3.4 L (3.5-5.1) mmol/L Chloride 106 (98-107) mmol/L Carbon Dioxide 28 (22-30) mmol/L Anion Gap 6 mmol/L BUN 27 H (7-17) mg/dL Creatinine 0.96 (0.52-1.04) mg/dL Est GFR (CKD-EPI)AfAm 64 (>60 ml/min/1.73 sqM) Est GFR (CKD-EPI)NonAf 56 (>60 ml/min/1.73 sqM) Glucose 106 H (74-99) mg/dL Calcium 8.9 (8.4-10.2) mg/dL Magnesium 2.0 (1.6-2.3) mg/dL Total Bilirubin 0.3 (0.2-1.3) mg/dL AST 22 (14-36) U/L ALT 14 (4-34) U/L Alkaline Phosphatase 122 (38-126) U/L Troponin I (0.000-0.034) ng/mL Total Protein 6.4 (6.3-8.2) g/dL Albumin 3.6 (3.5-5.0) g/dL 07/25/20 Range/Units 21:57 WBC (3.8-10.6) k/uL RBC (3.80-5.40) m/uL Hgb (11.4-16.0) gm/dL Hct (34.0-46.0) % MCV (80.0-100.0) fL MCH (25.0-35.0) pg MCHC (31.0-37.0) g/dL RDW (11.5-15.5) % Plt Count (150-450) k/uL Neutrophils % % Lymphocytes % % Monocytes % % Eosinophils % % Basophils % % Neutrophils # (1.3-7.7) k/uL Lymphocytes # (1.0-4.8) k/uL Monocytes # (0-1.0) k/uL Eosinophils # (0-0.7) k/uL Basophils # (0-0.2) k/uL Anisocytosis PT (9.0-12.0) sec INR (<1.2) APTT (22.0-30.0) sec D-Dimer (<0.60) mg/L FEU Sodium (137-145) mmol/L Potassium (3.5-5.1) mmol/L Chloride (98-107) mmol/L Carbon Dioxide (22-30) mmol/L Anion Gap mmol/L BUN (7-17) mg/dL Creatinine (0.52-1.04) mg/dL Est GFR (CKD-EPI)AfAm (>60 ml/min/1.73 sqM) Est GFR (CKD-EPI)NonAf (>60 ml/min/1.73 sqM) Glucose (74-99) mg/dL Calcium (8.4-10.2) mg/dL Magnesium (1.6-2.3) mg/dL Total Bilirubin (0.2-1.3) mg/dL AST (14-36) U/L ALT (4-34) U/L Alkaline Phosphatase (38-126) U/L Troponin I <0.012 (0.000-0.034) ng/mL Total Protein (6.3-8.2) g/dL Albumin (3.5-5.0) g/dL - Radiology Data Radiology results: image reviewed Disposition Clinical Impression: Chest pain Disposition: ADMITTED IP TO THIS HOSP Is patient prescribed a controlled substance at d/c from ED?: No Referrals: Mark Macias DO [Primary Care Provider] - 1-2 days Decision Time: 22:34
[2020-07-25 22:08] LABS: Anisocytosis Slight; Basophils # (A) 0.1 k/uL (0-0.2); Basophils % (A) 1 %; Eosinophils # (A) 0.1 k/uL (0-0.7); Eosinophils % (A) 1 %; HCT 37.7 % (34.0-46.0); HGB 12.3 gm/dL (11.4-16.0); Lymphocytes # (A) 2.7 k/uL (1.0-4.8); Lymphocytes % (A) 30 %; MCH 27.1 pg (25.0-35.0); MCHC 32.6 g/dL (31.0-37.0); MCV 83.3 fL (80.0-100.0); Mean Platelet Volume 8.3; Monocytes # (A) 0.4 k/uL (0-1.0); Monocytes % (A) 5 %; Neutrophils # (A) 5.8 k/uL (1.3-7.7); Neutrophils % (A) 63 %; Platelet Count 190 k/uL (150-450); RBC 4.53 m/uL (3.80-5.40); RDW 16.3 % (11.5-15.5); WBC 9.2 k/uL (3.8-10.6)
[2020-07-25 22:18] LABS: Albumin 3.6 g/dL (3.5-5.0); Calcium 8.9 mg/dL (8.4-10.2); Potassium 3.4 mmol/L (3.5-5.1); Total Bilirubin 0.3 mg/dL (0.2-1.3); Total Protein 6.4 g/dL (6.3-8.2)
[2020-07-25 22:30] LABS: D-Dimer 0.38 mg/L FEU (<0.60); Partial Thromboplastin Time 26.7 sec (22.0-30.0); Prothrombin Time 10.1 sec (9.0-12.0)
[2020-07-25] MEDS ORDERED: NITROGLYCERIN SL TABS 0.4 MG TAB SUBLINGUAL PRN (22:35)
[2020-07-25] MEDS ORDERED: FAMOTIDINE 20 MG/2 ML VIAL IV STA (22:38)
--- NOTE | 2020-07-25 23:00 | XR ---
EXAMINATION TYPE: XR chest 2V DATE OF EXAM: 07/25/2020 COMPARISON: 06/24/2017 HISTORY: Chest pain TECHNIQUE: FINDINGS: There is no heart failure nor confluent pneumonic infiltrate. Heart appears enlarged. There is no pleural effusion. Bony thorax is intact. There are chest leads. There is left axillary pacemak er. IMPRESSION: There is cardiomegaly increased compared to old exam. No heart failure seen.
[2020-07-26] MEDS: NITROGLYCERIN OINT 1 INCH/GM PACKET TOPICAL SCH ×2 (00:20→06:06)
[2020-07-26 04:10] LABS: Cholesterol 117 mg/dL (<200); HDL Cholesterol 35 mg/dL (40-60); LDL Cholesterol,Calculated 62 mg/dL (0-99); Triglycerides 100 mg/dL (<150)
[2020-07-26] MEDS: ONDANSETRON 4 MG/2 ML VIAL IVP PRN ×2 (06:04→20:33)
[2020-07-26 08:05] LABS: Glucose,Whole Blood 79 mg/dL (75-99)
[2020-07-26] MEDS: FUROSEMIDE 40 MG TAB PO SCH (08:47)
[2020-07-26] MEDS: APIXABAN 5 MG TAB PO SCH ×2 (08:47→20:33)
[2020-07-26] MEDS: POTASSIUM CHLORIDE ER 20 MEQ TAB.ER PO SCH ×2 (08:50→09:42)
[2020-07-26] MEDS ORDERED: ASPIRIN 325 MG TAB PO SCH (09:00)
[2020-07-26] MEDS ORDERED: ALPRAZolam 1 MG TAB PO PRN (09:00)
--- NOTE | 2020-07-26 11:00 | ECHOF ---
Referral Reason:cp MEASUREMENTS -------- HEIGHT: 162.6 cm WEIGHT: 86.2 kg BP: 126/65 RVIDd: 3.5 cm (< 3.3) IVSd: 1.3 cm (0.6 - 1.1) LVIDd: 4.7 cm (3.9 - 5.3) LVPWd: 1.4 cm (0.6 - 1.1) IVSs: 1.7 cm LVIDs: 3.5 cm LVPWs: 1.8 cm LAESV Index (A-L): 51.43 ml/m Ao Diam: 2.7 cm (2.0 - 3.7) AV Cusp: 1.2 cm (1.5 - 2.6) MV EXCURSION: 15.315 mm (> 18.000) MV EF SLOPE: 61 mm/s (70 - 150) EPSS: 1.1 cm MV E Frank: 1.17 m/s MV DecT: 129 ms MV A Frank: 1.42 m/s MV E/A Ratio: 0.82 AV maxP.13 mmHg AV meanP.46 mmHg RAP: 5.00 mmHg RVSP: 39.80 mmHg FINDINGS -------- This was a technically adequate study. The left ventricular size is normal. There is mild concentric left ventricular hypertrophy. Overa ll left ventricular systolic function is mildly impaired with, an EF between 45 - 50 %. Mitral Dopp ler inflow pattern suggests diastolic filling abnormality {E/E'}. The right ventricle is mildly enlarged. LA is severely dilated >40 ml/m2 The right atrium is mildly enlarged. Electronic pacemaker lead seen in the right atrial cavity. Interatrial and interventricular septum intact. There is no evidence of aortic regurgitation. There is mild aortic stenosis present. Peak/mean gr adient across the Aortic Valve is 32.13mmHg / 19.46mmHg. Moderate mitral annular calcification present. Moderate mitral regurgitation is present. Mild tricuspid regurgitation present. There is mild pulmonary hypertension. The right ventricular systolic pressure, as measured by Doppler, is 39.80mmHg. The aortic root size is normal. Normal inferior vena cava with normal inspiratory collapse consistent with estimated right atrial pre ssure of 5 mmHg. There is a small to moderate, generalized pericardial effusion present. There is no evidence of card iac tamponade. CONCLUSIONS -------- 1. The left ventricular size is normal. 2. There is mild concentric left ventricular hypertrophy. 3. Overall left ventricular systolic function is mildly impaired with, an EF between 45 - 50 %. 4. Mitral Doppler inflow pattern suggest diastolic filling abnormality {E/E'}. 5. The right ventricle is mildly enlarged. 6. LA is severely dilated >40 ml/m2 7. The right atrium is mildly enlarged. 8. There is mild aortic stenosis present. 9. Peak/mean gradient across the Aortic Valve is 32.13mmHg / 19.46mmHg. 10. Moderate mitral annular calcification present. 11. Moderate mitral regurgitation is present. 12. Mild tricuspid regurgitation present. 13. There is mild pulmonary hypertension. 14. The right ventricular systolic pressure, as measured by Doppler, is 39.80mmHg. 15. There is no evidence of cardiac tamponade. DYE COLORIST DYER: Judith Jackson RDCS
[2020-07-26] MEDS: SYMBICORT 80-4.5 MCG INHALER INHALATION SCH ×2 (11:14→21:10)
--- NOTE | 2020-07-26 11:20 | P.CRDCN ---
History of Present Illness History of present illness: HISTORY OF PRESENTING ILLNESS This is a pleasant 79-year-old female past medical history significant for mild nonobstructive coronary artery disease, paroxysmal atrial fibrillation status post AV node ablation, sick sinus syndrome status post permanent pacemaker implantation , hypertension, dyslipidemia, peripheral vascular disease, diabetes mellitus and CVA. She follows in the office with Dr. Suarez. We have been asked to see in consultation for chest pain. She saw Dr. Johnson in the office in June and underwent an echocardiogram reveals impaired LV systolic function 34% with a small circumferential pericardial effusion. At that time he initiated her on oral Lasix and optimize her cardiac medications and recommended dose follow-up in the office. She was scheduled to see him in the office this afternoon. She presented to the hospital with symptoms of left- sided chest discomfort radiates through to her back. The pain is pleuritic in nature and exacerbated by movement and deep inspiration. She denies associated shortness of breath, dizziness or palpitations. The symptoms have been going on for the previous one month. DIAGNOSTICS EKG reveals paced rhythm. Chest xray cardiomegaly with no acute heart failure or pleural effusion. Laboratory reviewed, CBC unremarkable, d-dimer 0.38, sodium 140, potassium 3.4, creatinine 0.96, magnesium 2.0, cardiac enzymes negative 3, LDL 62, HDL 35 and anterior proBNP 1020. Current cardiac medications include Eliquis 5 mg twice a day, atorvastatin 40 mg daily, aspirin 81 mg on Friday and Friday, Lasix 40 mg daily, irbesartan 300 mg at bedtime and Toprol 50 mg at bedtime. She underwent a cardiac catheterization in 2011 revealing RCA free of significant disease, left main free of significant disease, LAD with a 40% narrowing, circumflex free of significant disease. At that time her LV systolic function was normal with EF of 60%. REVIEW OF SYSTEMS At the time of my exam: CONSTITUTIONAL: Denies fever or chills. CARDIOVASCULAR: Complains of pleuritic chest pain. Denies chest pain, shortness of breath, orthopnea, PND or palpitations. RESPIRATORY: Denies cough. GASTROINTESTINAL: Denies abdominal pain, diarrhea, constipation, nausea or vomiting. MUSCULOSKELETAL: Denies myalgias. NEUROLOGIC: Denies numbness, tingling or weakness. ENDOCRINE: Denies fatigue, weight change, polydipsia or polyurina. GENITOURINARY: Denies burning, hematuria or urgency with micturation. HEMATOLOGIC: Denies history of anemia or bleeding. PHYSICAL EXAMINATION Blood pressure 126/65 heart rate 68 afebrile and maintaining oxygen saturation on room air. CONSTITUTIONAL: No apparent distress. HEENT: Head is normocephalic. Pupils are equal, round. Sclerae anicteric. Mucous membranes of the mouth are moist. No JVD. No carotid bruit. CHEST EXAMINATION: Lungs are clear to auscultation. No chest wall tenderness is noted on palpation or with deep breathing. HEART EXAMINATION: Regular rate and rhythm. S1, S2 heard. Pleural friction rub noted at the left sternal border. ABDOMEN: Soft, nontender. Positive bowel sounds. EXTREMITIES: 2+ peripheral pulses, no lower extremity edema and no calf tenderness. NEUROLOGIC EXAMINATION: Patient is awake, alert and oriented x3. ASSESSMENT Pericardial effusion Chest pain, pleuritic in nature. An acute event has been ruled out, d-dimer normal. Hypokalemia Chronic persistent atrial fibrillation on eliquis s/p AV node ablation Sick sinus syndrome s/p permanent pacemaker implantation Hypertension Dyslipidemia Diabetes mellitus CVA PLAN Repeat 2D echocardiogram and doppler study to assess cardiac structure and function. Initiate colchicine 0.6 mg BID. Discontinue aspirin and Nitropaste. Resume irbesartan 300 mg as previously ordered. Continue Lasix and Toprol. Replace potassium. Further recommendations to follow based upon clinical course. Thank you kindly for this consultation. Nurse Practitioner note has been reviewed, I agree with a documented findings and plan of care. Patient was seen and examined. Past Medical History Past Medical History: CVA/TIA, Diabetes Mellitus Additional Past Medical History / Comment(s): Palpitations for years, NIDDM type II, hypothyroid, CVA 2011 with some L sided weakness, bilateral tinnitis, hepatitis back in the 1950s-unkn which type, hiatal hernia, sinus problems, chronic back pain, epistaxis in past but none lately, macular degeneration b ilaterally, generalized arthritis. History of Any Multi-Drug Resistant Organisms: None Reported Past Surgical History: Ablation, Heart Catheterization, Hysterectomy, Joint Replacement, Orthopedic Surgery, Pacemaker Additional Past Surgical History / Comment(s): bilateral cataract surgery, eye injections for macular degeneration q 5 weeks, bilateral knee arthroscopies and arthroplasties, 9/28/16 cardiac cath-normal. loop recorder 08/2016 and removed, egd-12/14/18. Ablation 08/2019 Past Anesthesia/Blood Transfusion Reactions: Motion Sickness, Postoperative Nausea & Vomiting (PONV) Type of Cardiac Device: Permanent Pacemaker Device Placement Date:: 06/2018 Past Psychological History: Anxiety Additional Psychological History / Comment(s): Pt resides with her spouse. She uses a cane if she needs to walk longer distances. She drives. Smoking Status: Never smoker Past Alcohol Use History: None Reported Past Drug Use History: None Reported - Past Family History Father Family Medical History: Congestive Heart Failure (CHF) Additional Family Medical History / Comment(s): Father of CHF at the age of 89yrs. Mother Family Medical History: CVA/TIA, Osteoarthritis (OA) Additional Family Medical History / Comment(s): Mother of a CVA at the age of 89yrs. Brother(s) Family Medical History: Cancer Additional Family Medical History / Comment(s): lymphoma Sister(s) Family Medical History: Cancer Additional Family Medical History / Comment(s): melanoma Medications and Allergies Home Medications Medication Instructions Recorded Confirmed Type Aspirin 81 mg PO MOWEFR 05/04/15 07/25/20 History Atorvastatin Calcium [Lipitor] 40 mg PO HS 05/04/15 07/25/20 History Levothyroxine Sodium [Synthroid] 50 mcg PO DAILY 05/04/15 07/25/20 History Meclizine [Antivert] 25 mg PO TID PRN 05/04/15 07/25/20 History ALPRAZolam 1 mg PO BID PRN 08/23/16 07/25/20 History Insulin Aspart [NovoLOG Flexpen] See Protocol SQ BID PRN 08/23/16 07/25/20 History Fluticasone/Salmeterol [Advair 1 puff INHALATION RT-BID 02/16/17 07/25/20 History 100-50 Diskus] Vit C/E/Zn/Coppr/Lutein/Zeaxan 1 cap PO BID 02/16/17 07/25/20 History [Preservision Areds 2 Softgel] Irbesartan 300 mg PO HS 06/17/17 07/25/20 History Cholecalciferol [Vitamin D3] 1,000 unit PO DAILY 01/29/19 07/25/20 History Apixaban [Eliquis] 5 mg PO BID 08/17/19 07/25/20 History Omeprazole [PriLOSEC] 40 mg PO DAILY 08/17/19 07/25/20 History Pediatric Multivitamin No.30 1 each PO DAILY 08/17/19 07/25/20 History [Multivitamin Children's Gummies] Acetaminophen [Tylenol Arthritis] 1,300 mg PO DAILY PRN 07/25/20 07/25/20 History Albuterol Inhaler [Ventolin Hfa 1 - 2 puff INHALATION RT-Q4H PRN 07/25/20 07/25/20 History Inhaler] Furosemide [Lasix] 40 mg PO W/BRKFST 07/25/20 07/25/20 History Glimepiride [Amaryl] 2 mg PO HS 07/25/20 07/25/20 History Metoprolol Succinate [Toprol XL] 50 mg PO HS 07/25/20 07/25/20 History Nitroglycerin Sl Tabs [Nitrostat] 0.4 mg PO DIRECTED 07/25/20 07/25/20 History Allergies Allergy/AdvReac Type Severity Reaction Status Date / Time doxycycline [From Vibramycin] Allergy Unknown Rash/Hives Verified 07/25/20 22:26 MITALI Inhibitors Allergy Unknown Verified 07/25/20 22:26 erythromycin base Allergy Rash/Hives Verified 07/25/20 22:26 iodine Allergy Unknown Verified 07/25/20 22:26 lisinopril Allergy Unknown Verified 07/25/20 22:26 moexipril HCl [From Univasc] Allergy Cough, Verified 07/25/20 22:26 choking sulfamethoxazole Allergy Rash/Hives Verified 07/25/20 22:26 [From Bactrim] trimethoprim [From Bactrim] Allergy Rash/Hives Verified 07/25/20 22:26 cat scan dye Allergy Rash/Hives Uncoded 07/25/20 22:26 black olives AdvReac Anaphylaxis Uncoded 07/25/20 22:26 Physical Exam Vitals: Vital Signs Temp Pulse Pulse Resp BP BP Pulse Ox 07/26/20 09:00 20 07/26/20 08:14 97.6 F 68 20 126/65 98 07/26/20 03:00 97.5 F L 60 18 130/71 97 07/25/20 23:23 97.7 F 60 18 116/61 97 07/25/20 22:27 64 20 143/96 97 07/25/20 21:42 98.2 F 68 18 155/75 97 07/25/20 21:39 60 18 155/65 Intake and Output 07/25/20 07/26/20 07/26/20 22:59 06:59 14:59 Intake Total 0 100 Balance 0 100 Intake: Oral 0 100 Other: Voiding Method Toilet Toilet # Voids 2 Weight 86.183 kg 86.183 kg Results 07/25/20 21:57 07/25/20 21:57 Cardiac Enzymes 07/25/20 07/25/20 07/26/20 Range/Units 21:57 21:57 01:41 AST 22 (14-36) U/L Troponin I <0.012 <0.012 (0.000-0.034) ng/mL 07/26/20 Range/Units 03:47 AST (14-36) U/L Troponin I <0.012 (0.000-0.034) ng/mL Coagulation 07/25/20 Range/Units 21:57 PT 10.1 (9.0-12.0) sec APTT 26.7 (22.0-30.0) sec Lipids 07/26/20 Range/Units 03:47 Triglycerides 100 (<150) mg/dL Cholesterol 117 (<200) mg/dL HDL Cholesterol 35 L (40-60) mg/dL CBC 07/25/20 Range/Units 21:57 WBC 9.2 (3.8-10.6) k/uL RBC 4.53 (3.80-5.40) m/uL Hgb 12.3 (11.4-16.0) gm/dL Hct 37.7 (34.0-46.0) % Plt Count 190 (150-450) k/uL Comprehensive Metabolic Panel 07/25/20 Range/Units 21:57 Sodium 140 (137-145) mmol/L Potassium 3.4 L (3.5-5.1) mmol/L Chloride 106 (98-107) mmol/L Carbon Dioxide 28 (22-30) mmol/L BUN 27 H (7-17) mg/dL Creatinine 0.96 (0.52-1.04) mg/dL Glucose 106 H (74-99) mg/dL Calcium 8.9 (8.4-10.2) mg/dL AST 22 (14-36) U/L ALT 14 (4-34) U/L Alkaline Phosphatase 122 (38-126) U/L Total Protein 6.4 (6.3-8.2) g/dL Albumin 3.6 (3.5-5.0) g/dL Current Medications Generic Name Dose Route Start Last Admin Trade Name Freq PRN Reason Stop Dose Admin Alprazolam 1 mg 07/26/20 09:00 Alprazolam 1 Mg Tab PO BID PRN Anxiety Apixaban 5 mg 07/26/20 09:00 07/26/20 08:47 Apixaban 5 Mg Tab PO 5 mg BID SWATI Administration Atorvastatin Calcium 40 mg 07/26/20 21:00 Atorvastatin 40 Mg Tab PO HS [facility] Budesonide/Formoterol Fumarate 2 puff 07/26/20 10:11 Symbicort 80-4.5 Mcg Inhaler INHALATION RT-BID SWATI Furosemide 40 mg 07/26/20 07:30 07/26/20 08:47 Furosemide 40 Mg Tab PO 40 mg W/BRKFST SWATI Administration Glimepiride 2 mg 07/26/20 21:00 Glimepiride 2 Mg Tab PO HS [facility] Levothyroxine Sodium 50 mcg 07/26/20 10:15 Levothyroxine 50 Mcg Tab PO DAILY@0630 [facility] Losartan Potassium 100 mg 07/26/20 21:00 Losartan 50 Mg Tab PO HS [facility] Metoprolol Succinate 50 mg 07/26/20 21:00 Metoprolol Succinate (Er) 50 Mg Tab.Er.24h PO HS [facility] Nitroglycerin 0.4 mg 07/25/20 22:35 Nitroglycerin Sl Tabs 0.4 Mg Tab SUBLINGUAL Q5M PRN Chest Pain Ondansetron HCl 4 mg 07/26/20 05:54 07/26/20 06:04 Ondansetron 4 Mg/2 Ml Vial IVP 4 mg Q6HR PRN Administration Nausea And Vomiting Pantoprazole Sodium 40 mg 07/26/20 10:15 Pantoprazole 40 Mg Tablet PO DAILY@0730 SWATI Intake and Output 07/25/20 07/26/20 07/26/20 22:59 06:59 14:59 Intake Total 0 100 Balance 0 100 Intake: Oral 0 100 Other: Voiding Method Toilet Toilet # Voids 2 Weight 86.183 kg 86.183 kg 07/25/20 21:57 07/25/20 21:57
[2020-07-26] MEDS: PANTOPRAZOLE 40 MG TABLET PO SCH (11:48)
[2020-07-26] MEDS: COLCHICINE 0.6 MG EACH PO SCH ×2 (11:48→20:35)
[2020-07-26] MEDS: LEVOTHYROXINE 50 MCG TAB PO SCH (11:48)
[2020-07-26 12:45] LABS: Glucose,Whole Blood 96 mg/dL (75-99)
[2020-07-26] MEDS: VIT A,C & E-LUTEIN-MINERALS 1 EACH TAB PO SCH (14:48)
[2020-07-26] MEDS: CHOLECALCIFEROL 1,000 UNIT TAB PO SCH (15:46)
[2020-07-26] MEDS: MULTIVITAMINS, THERA 1 EACH TAB PO SCH (15:46)
--- NOTE | 2020-07-26 15:59 | P.HPIM ---
History of Present Illness H&P Date: 07/26/20 Chief Complaint: throbbing sharp left anterior chest pain History of presenting complaint: This is a very pleasant 79-year-old patient of Dr. Sara Macias. Chronic stable medical conditions include left-sided weakness from prior stroke, diabetes, hypothyroid, chronic tinnitus, hiatal hernia, multiple joint pains macular degeneration. 2016 patient had a normal cardiac catheterization. Also the loop recorder in 2016. Patient also the permanent pacemaker. Does follow with Dr. Antony Suarez at the cartilage office. Patient for about a month has been having symptoms for left-sided anterior sharp chest pain. Often post fluid with body movements. Sometimes related to inspiration. Stabbing in nature. The patient had done an echocardiogram had 4 small amount of pericardial effusion patient was put on diuretics. Patient been having some more chest pain lately has presented to the ER. Troponins were negative. There were no other associated symptoms of dizziness lightheadedness radiation of the pain. Rather localized. Below the left breast. Patient's and daughter the bedside. Review of systems: GEN.: No fever no chills EYES: None HEENT: None NECK: None RESPIRATORY: None CARDIOVASCULAR: [As above GASTROINTESTINAL: None GENITOURINARY: None MUSCULOSKELETAL: Multiple joint pains LYMPHATICS: None HEMATOLOGICAL: None PSYCHIATRY: None NEUROLOGICAL: Chronic left-sided weakness does use a cane and a walker Past medical history to include: Diabetes mellitus type 2, hypothyroid, stroke and resultant shortness of left- sided weakness, bilateral tinnitus, hiatal hernia, chronic low back pain and arthritis in multiple joints macular degeneration, cardiac catheterization 2016 normal, loop recorder in 2016, ablation in 2019, permanent pacemaker. Anxiety. Per cardiology consultation patient's EF at the office was 34%. Social history: . Lives with her . Does use a cane and a walker. No history of smoking and alcohol. Physical examination: VITAL SIGNS: 98.2, 68, 18, 1 5575, 97% on room air GENERAL: [BMI 32.6, sitting up in a chair, awake EYES: Pupils equal. Conjunctiva normal. HEENT: External appearance of nose and ears normal, oral cavity grossly normal. NECK: JVD not raised; masses not palpable. HEART: First and second heart sounds are normal; no edema. LUNGS: Respiratory rate normal; clear to auscultation. ABDOMEN: Soft, nontender, liver spleen not palpable, no masses palpable. PSYCH: Alert and oriented x3; mood and affect normal. MUSCULAR skeletal: Evidence of severe osteoarthritis especially in the hands. Patient also some deep tenderness in the anterior chest wall in the midclavicular line in the precordial area NEUROLOGICAL: Cranial nerves grossly intact; no facial asymmetry, power and sensation grossly intact. LYMPHATICS: No lymph nodes palpable in the axilla and neck INVESTIGATIONS, reviewed in the clinical context: White count 9.2 hemoglobin 12.3 platelets 190 potassium 3.4 creatinine 0.96 ESR 39, CRP 16.1 Troponin I 3 negative ProBNP 1020 EKG tracing personally reviewed by me-ventricle paced rhythm Chest x-ray film personally reviewed by me-cardiomegaly, lung shearer are clear, pacemaker 2-D echocardiogram EF 45-50%, moderate mitral annular calcification, moderate mitral regurgitation Assessment: -Patient is about 1 month of left-sided chest pain. Sharp in nature. Noncardiac sounding. Was being treated by his cardiology. Small pericardial effusion was noted. Given her ESR and CRP is elevated, viral pericarditis with acute on chronic. In the differential. Underlying costochondral pain also possible. 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 Patient is on eliquis I'm hesitant about adding NSAIDs. Home medications to be continued. Care was discussed at length with the patient and family at the bedside. Questions were answered. Fall precautions were discussed with the nurse. Past Medical History Past Medical History: CVA/TIA, Diabetes Mellitus Additional Past Medical History / Comment(s): Palpitations for years, NIDDM type II, hypothyroid, CVA 2011 with some L sided weakness, bilateral tinnitis, hepatitis back in the 1949's-unkn which type, hiatal hernia, sinus problems, chronic back pain, epistaxis in past but none lately, macular degeneration bilaterally, generalized arthritis. History of Any Multi-Drug Resistant Organisms: None Reported Past Surgical History: Ablation, Heart Catheterization, Hysterectomy, Joint Replacement, Orthopedic Surgery, Pacemaker Additional Past Surgical History / Comment(s): bilateral cataract surgery, eye injections for macular degeneration q 5 weeks, bilateral knee arthroscopies and arthroplasties, 08/07/16 cardiac cath-normal. loop recorder 08/2016 and removed, egd-12/14/18. Ablation 08/2019 Past Anesthesia/Blood Transfusion Reactions: Motion Sickness, Postoperative Nausea & Vomiting (PONV) Type of Cardiac Device: Permanent Pacemaker Device Placement Date:: 06/2018 Past Psychological History: Anxiety Additional Psychological History / Comment(s): Pt resides with her spouse. She uses a cane if she needs to walk longer distances. She drives. Smoking Status: Never smoker Past Alcohol Use History: None Reported Past Drug Use History: None Reported - Past Family History Father Family Medical History: Congestive Heart Failure (CHF) Additional Family Medical History / Comment(s): Father of CHF at the age of 89yrs. Mother Family Medical History: CVA/TIA, Osteoarthritis (OA) Additional Family Medical History / Comment(s): Mother of a CVA at the age of 89yrs. Brother(s) Family Medical History: Cancer Additional Family Medical History / Comment(s): lymphoma Sister(s) Family Medical History: Cancer Additional Family Medical History / Comment(s): melanoma Medications and Allergies Home Medications Medication Instructions Recorded Confirmed Type Aspirin 81 mg PO MOWEFR 05/04/15 07/25/20 History Atorvastatin Calcium [Lipitor] 40 mg PO HS 05/04/15 07/25/20 History Levothyroxine Sodium [Synthroid] 50 mcg PO DAILY 05/04/15 07/25/20 History Meclizine [Antivert] 25 mg PO TID PRN 05/04/15 07/25/20 History ALPRAZolam 1 mg PO BID PRN 08/23/16 07/25/20 History Insulin Aspart [NovoLOG Flexpen] See Protocol SQ BID PRN 08/23/16 07/25/20 History Fluticasone/Salmeterol [Advair 1 puff INHALATION RT-BID 02/16/17 07/25/20 History 100-50 Diskus] Vit C/E/Zn/Coppr/Lutein/Zeaxan 1 cap PO BID 02/16/17 07/25/20 History [Preservision Areds 2 Softgel] Irbesartan 300 mg PO HS 06/17/17 07/25/20 History Cholecalciferol [Vitamin D3] 1,000 unit PO DAILY 01/29/19 07/25/20 History Apixaban [Eliquis] 5 mg PO BID 08/17/19 07/25/20 History Omeprazole [PriLOSEC] 40 mg PO DAILY 08/17/19 07/25/20 History Pediatric Multivitamin No.30 1 each PO DAILY 08/17/19 07/25/20 History [Multivitamin Children's Gummies] Acetaminophen [Tylenol Arthritis] 1,300 mg PO DAILY PRN 07/25/20 07/25/20 History Albuterol Inhaler [Ventolin Hfa 1 - 2 puff INHALATION RT-Q4H PRN 07/25/20 07/25/20 History Inhaler] Furosemide [Lasix] 40 mg PO W/BRKFST 07/25/20 07/25/20 History Glimepiride [Amaryl] 2 mg PO HS 07/25/20 07/25/20 History Metoprolol Succinate [Toprol XL] 50 mg PO HS 07/25/20 07/25/20 History Nitroglycerin Sl Tabs [Nitrostat] 0.4 mg PO DIRECTED 07/25/20 07/25/20 History Allergies Allergy/AdvReac Type Severity Reaction Status Date / Time doxycycline [From Vibramycin] Allergy Unknown Rash/Hives Verified 07/25/20 22:26 MITALI Inhibitors Allergy Unknown Verified 07/25/20 22:26 erythromycin base Allergy Rash/Hives Verified 07/25/20 22:26 iodine Allergy Unknown Verified 07/25/20 22:26 lisinopril Allergy Unknown Verified 07/25/20 22:26 moexipril HCl [From Univasc] Allergy Cough, Verified 07/25/20 22:26 choking sulfamethoxazole Allergy Rash/Hives Verified 07/25/20 22:26 [From Bactrim] trimethoprim [From Bactrim] Allergy Rash/Hives Verified 07/25/20 22:26 cat scan dye Allergy Rash/Hives Uncoded 07/25/20 22:26 black olives AdvReac Anaphylaxis Uncoded 07/25/20 22:26 Physical Exam Vitals: Vital Signs Temp Pulse Pulse Resp BP BP Pulse Ox 07/26/20 08:14 97.6 F 68 20 126/65 98 07/26/20 03:00 97.5 F L 60 18 130/71 97 07/25/20 23:23 97.7 F 60 18 116/61 97 07/25/20 22:27 64 20 143/96 97 07/25/20 21:42 98.2 F 68 18 155/75 97 07/25/20 21:39 60 18 155/65 Intake and Output 07/25/20 07/26/20 07/26/20 22:59 06:59 14:59 Intake Total 0 Balance 0 Intake: Oral 0 Other: Voiding Method Toilet # Voids 2 Weight 86.183 kg 86.183 kg Results CBC & Chem 7: 07/25/20 21:57 07/25/20 21:57 Labs: Abnormal Lab Results - Last 24 Hours (Table) 07/25/20 07/25/20 07/26/20 Range/Units 21:57 21:57 03:47 RDW 16.3 H (11.5-15.5) % Potassium 3.4 L (3.5-5.1) mmol/L BUN 27 H (7-17) mg/dL Glucose 106 H (74-99) mg/dL HDL Cholesterol 35 L (40-60) mg/dL Thrombosis Risk Factor Assmnt - Choose All That Apply Each Risk Factor Represents 3 Points: Age 75 years or older Thrombosis Risk Factor Assessment Total Risk Factor Score: 3 Thrombosis Risk Factor Assessment Level: Moderate Risk
[2020-07-26] MEDS ORDERED: ATORVASTATIN 40 MG TAB PO SCH (21:00)
[2020-07-26] MEDS ORDERED: LOSARTAN 50 MG TAB PO SCH (21:00)
[2020-07-26] MEDS ORDERED: METOPROLOL SUCCINATE (ER) 50 MG TAB.ER.24H PO SCH (21:00)
[2020-07-26] MEDS ORDERED: GLIMEPIRIDE 2 MG TAB PO SCH (21:00)
[2020-07-27] MEDS: FUROSEMIDE 40 MG TAB PO SCH (06:48)
[2020-07-27] MEDS: PANTOPRAZOLE 40 MG TABLET PO SCH (06:48)
[2020-07-27] MEDS: LEVOTHYROXINE 50 MCG TAB PO SCH (06:48)
[2020-07-27 07:56] LABS: Calcium 9.1 mg/dL (8.4-10.2); Potassium 4.2 mmol/L (3.5-5.1)
[2020-07-27] MEDS: SYMBICORT 80-4.5 MCG INHALER INHALATION SCH (07:59)
[2020-07-27] MEDS: MULTIVITAMINS, THERA 1 EACH TAB PO SCH (08:27)
[2020-07-27] MEDS: APIXABAN 5 MG TAB PO SCH (08:27)
[2020-07-27] MEDS: VIT A,C & E-LUTEIN-MINERALS 1 EACH TAB PO SCH (08:28)
[2020-07-27] MEDS: CHOLECALCIFEROL 1,000 UNIT TAB PO SCH (08:28)
[2020-07-27] MEDS: COLCHICINE 0.6 MG EACH PO SCH (08:28)
--- NOTE | 2020-07-27 09:58 | P.PN ---
Subjective HISTORY OF PRESENTING ILLNESS This is a pleasant 79-year-old female past medical history significant for mild nonobstructive coronary artery disease, paroxysmal atrial fibrillation status post AV node ablation, sick sinus syndrome status post permanent pacemaker implantation , hypertension, dyslipidemia, peripheral vascular disease, diabetes mellitus and CVA. She follows in the office with Dr. Suarez. She is seen and examined sitting up in the chair in no acute distress. She continues to have reproducible chest pain that is much less intense and frequent as yesterday. She denies shortness of breath, dizziness or palpitations. Blood pressure 125/80 heart rate 68 afebrile maintaining oxygen saturation on room air. Laboratory data reviewed, sedimentation rate 39, CRP 16.1, sodium 141, potassium 4.2, creatinine 0.91. PHYSICAL EXAMINATION CONSTITUTIONAL: No apparent distress. HEENT: Head is normocephalic. Pupils are equal, round. Sclerae anicteric. Mucous membranes of the mouth are moist. No JVD. No carotid bruit. CHEST EXAMINATION: Lungs are clear to auscultation. No chest wall tenderness is noted on palpation or with deep breathing. HEART EXAMINATION: Regular rate and rhythm. S1, S2 heard. No murmur, rub or ga llop. EXTREMITIES: 2+ peripheral pulses, no lower extremity edema and no calf tenderness. ASSESSMENT Pericardial effusion Chest pain, pleuritic in nature. An acute event has been ruled out, d-dimer normal. Hypokalemia Chronic persistent atrial fibrillation on eliquis s/p AV node ablation Sick sinus syndrome s/p permanent pacemaker implantation Hypertension Dyslipidemia Diabetes mellitus CVA PLAN Stable on current medical regimen. Recommend continuation of colchicine for 7 days and follow up with Dr. Suarez in the office for repeat echo to assess effusion. Nurse Practitioner note has been reviewed, I agree with a documented findings and plan of care. Patient was seen and examined. Objective - Vital Signs Vital signs: Vital Signs Temp 97.9 F 07/27/20 08:24 Pulse 60 07/27/20 09:00 Resp 16 07/27/20 09:00 BP 125/80 07/27/20 08:24 Pulse Ox 96 07/27/20 08:24 Intake & Output 07/26/20 07/27/20 07/27/20 18:59 06:59 18:59 Intake Total 440 450 240 Balance 440 450 240 Intake: Oral 440 450 240 Other: Voiding Method Toilet Toilet Toilet # Voids 1 3 - Labs CBC & Chem 7: 07/25/20 21:57 07/27/20 06:35 Labs: Abnormal Lab Results - Last 24 Hours (Table) 07/26/20 07/26/20 07/27/20 Range/Units 03:47 12:32 06:35 ESR 39 H (0-20) mm/hr BUN 20 H (7-17) mg/dL C-Reactive Protein 16.1 H (<10.0) mg/L
[2020-07-27 12:33] VITALS: BP 116/70; PULSE 73; RESP 20; TEMP 98.7
--- NOTE | 2020-07-28 22:56 | P.DS ---
Providers Date of admission: 07/26/20 13:49 Expected date of discharge: 07/27/20 Attending physician: Bryce Verma Consults: 07/25/20 22:35 Consult Physician Urgent Consulting Provider: Frank Suarez Consult Reason/Comments: cp Do you want consulting provider notified?: Yes Primary care physician: Mark Macias [facility] Course: Chief Complaint: throbbing sharp left anterior chest pain History of presenting complaint: This is a very pleasant 79-year-old patient of Dr. Sara Macias. Chronic stable medical conditions include left-sided weakness from prior stroke, diabetes, hypothyroid, chronic tinnitus, hiatal hernia, multiple joint pains macular degeneration. 2016 patient had a normal cardiac catheterization. Also the loop recorder in 2016. Patient also the permanent pacemaker. Does follow with Dr. Antony Suarez at the cartilage office. Patient for about a month has been having symptoms for left-sided anterior sharp chest pain. Often post fluid with body movements. Sometimes related to inspiration. Stabbing in nature. The patient had done an echocardiogram had 4 small amount of pericardial effusion patient was put on diuretics. Patient been having some more chest pain lately has presented to the ER. Troponins were negative. There were no other associated symptoms of dizziness lightheadedness radiation of the pain. Rather localized. Below the left breast. Patient's and daughter the bedside. Patient possibly had acute on chronic flareup of pericarditis. Started on colchicine To which she responded well. Repeat echocardiogram. Showed small to moderate pericardial effusion. Today-pain much improved. Feeling better. Care was discussed with the patient. Questions were answered. Consultation: Dr. KILO Kidd from cardiology Physical examination: VITAL SIGNS: 98.7, 73, 20, 116/70, 95% on room air GENERAL: Sitting up in a chair, comfortable EYES: Pupils equal. Conjunctiva normal. NECK: JVD not raised; masses not palpable. HEART: First and second heart sounds are normal; no edema. LUNGS: Respiratory rate normal; clear to auscultation. ABDOMEN: Soft, nontender, liver spleen not palpable, no masses palpable. PSYCH: Alert and oriented x3; mood and affect normal. MUSCULAR skeletal: Evidence of severe osteoarthritis especially in the hands. 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 -Diabetes mellitus type 2 -Hypothyroid -Chronic bilateral tinnitus -Hiatal hernia -Advance bilateral significant osteoarthritis -Macular degeneration bilateral -Chronic gait dysfunction uses a cane and a walker because of left-sided weakness -Permanent pacemaker Disposition: Home Patient Condition at Discharge: Stable Plan - Discharge Summary New Discharge Prescriptions: New Colchicine [Colcrys] 0.6 mg PO BID #14 each Continue Meclizine [Antivert] 25 mg PO TID PRN PRN Reason: dizziness Atorvastatin Calcium [Lipitor] 40 mg PO HS Aspirin 81 mg PO MOWEFR Levothyroxine Sodium [Synthroid] 50 mcg PO DAILY ALPRAZolam 1 mg PO BID PRN PRN Reason: Anxiety Insulin Aspart [NovoLOG Flexpen] See Protocol SQ BID PRN PRN Reason: high blood sugar Fluticasone/Salmeterol [Advair 100-50 Diskus] 1 puff INHALATION RT-BID Vit C/E/Zn/Coppr/Lutein/Zeaxan [Preservision Areds 2 Softgel] 1 cap PO BID Irbesartan 300 mg PO HS Cholecalciferol [Vitamin D3 (25 Mcg = 1000 Iu)] 1,000 unit PO DAILY Apixaban [Eliquis] 5 mg PO BID Pediatric Multivitamin No.30 [Multivitamin Children's Gummies] 1 each PO DAILY Omeprazole [PriLOSEC] 40 mg PO DAILY Albuterol Inhaler [Ventolin Hfa Inhaler] 1 - 2 puff INHALATION RT-Q4H PRN PRN Reason: Shortness Of Breath Furosemide [Lasix] 40 mg PO W/BRKFST Glimepiride [Amaryl] 2 mg PO HS Metoprolol Succinate [Toprol XL] 50 mg PO HS Nitroglycerin Sl Tabs [Nitrostat] 0.4 mg PO DIRECTED Acetaminophen [Tylenol Arthritis] 1,300 mg PO DAILY PRN PRN Reason: Pain Discharge Medication List Aspirin 81 mg PO MOWEFR 05/04/15 [History] Atorvastatin Calcium [Lipitor] 40 mg PO HS 05/04/15 [History] Levothyroxine Sodium [Synthroid] 50 mcg PO DAILY 05/04/15 [History] Meclizine [Antivert] 25 mg PO TID PRN 05/04/15 [History] ALPRAZolam 1 mg PO BID PRN 08/23/16 [History] Insulin Aspart [NovoLOG Flexpen] See Protocol SQ BID PRN 08/23/16 [History] Fluticasone/Salmeterol [Advair 100-50 Diskus] 1 puff INHALATION RT-BID 02/16/17 [History] Vit C/E/Zn/Coppr/Lutein/Zeaxan [Preservision Areds 2 Softgel] 1 cap PO BID 02/16/17 [History] Irbesartan 300 mg PO HS 06/17/17 [History] Cholecalciferol [Vitamin D3 (25 Mcg = 1000 Iu)] 1,000 unit PO DAILY 01/29/19 [History] Apixaban [Eliquis] 5 mg PO BID 08/17/19 [History] Omeprazole [PriLOSEC] 40 mg PO DAILY 08/17/19 [History] Pediatric Multivitamin No.30 [Multivitamin Children's Gummies] 1 each PO DAILY 08/17/19 [History] Acetaminophen [Tylenol Arthritis] 1,300 mg PO DAILY PRN 07/25/20 [History] Albuterol Inhaler [Ventolin Hfa Inhaler] 1 - 2 puff INHALATION RT-Q4H PRN 07/25/20 [History] Furosemide [Lasix] 40 mg PO W/BRKFST 07/25/20 [History] Glimepiride [Amaryl] 2 mg PO HS 07/25/20 [History] Metoprolol Succinate [Toprol XL] 50 mg PO HS 07/25/20 [History] Nitroglycerin Sl Tabs [Nitrostat] 0.4 mg PO DIRECTED 07/25/20 [History] Colchicine [Colcrys] 0.6 mg PO BID #14 each 07/27/20 [Rx] Follow up Appointment(s)/Referral(s): Frank Suarez MD [STAFF PHYSICIAN] - 08/03/20 3:45 pm (with Lady ) Mark Macias DO [Primary Care Provider] - 08/02/20 1:15 pm Patient Instructions/Handouts: Chest Pain (DC), Heart Healthy Diet (DC) Discharge Disposition: HOME SELF-CARE
== END 2020-07-27 13:05 | disposition home or self-care (01) | DRG 313 ==
LOC: EC 21:25 → 3NCARDOBS 22:37 → OBSVTOIN 07-26 13:49
PROVIDERS: ADMIT Hospitalist; ATTEND Hospitalist
DX: R07.89 Other chest pain (principal); I31.3 Pericardial effusion (noninflammatory); I48.19 Other persistent atrial fibrillation; I69.354 Hemiplegia and hemiparesis following cerebral infarction affecting left non-dominant side; I25.10 Atherosclerotic heart disease of native coronary artery without angina pectoris; E11.51 Type 2 diabetes mellitus with diabetic peripheral angiopathy without gangrene; I11.9 Hypertensive heart disease without heart failure; I49.5 Sick sinus syndrome; E78.5 Hyperlipidemia, unspecified; E03.9 Hypothyroidism, unspecified; E87.6 Hypokalemia; F41.9 Anxiety disorder, unspecified; H35.30 Unspecified macular degeneration; H93.13 Tinnitus, bilateral; K44.9 Diaphragmatic hernia without obstruction or gangrene; M13.0 Polyarthritis, unspecified; G89.29 Other chronic pain; M54.9 Dorsalgia, unspecified; R26.9 Unspecified abnormalities of gait and mobility; Z79.01 Long term (current) use of anticoagulants; Z79.82 Long term (current) use of aspirin; Z79.890 Hormone replacement therapy; Z79.899 Other long term (current) drug therapy; Z79.4 Long term (current) use of insulin; Z90.710 Acquired absence of both cervix and uterus; Z95.0 Presence of cardiac pacemaker; Z88.1 Allergy status to other antibiotic agents; Z91.041 Radiographic dye allergy status; Z88.2 Allergy status to sulfonamides; Z88.8 Allergy status to other drugs, medicaments and biological substances; Z91.018 Allergy to other foods; Z98.42 Cataract extraction status, left eye; Z98.41 Cataract extraction status, right eye; Z96.653 Presence of artificial knee joint, bilateral; Z98.890 Other specified postprocedural states; Z80.7 Family history of other malignant neoplasms of lymphoid, hematopoietic and related tissues; Z82.3 Family history of stroke; Z82.49 Family history of ischemic heart disease and other diseases of the circulatory system; Z82.61 Family history of arthritis; Z80.8 Family history of malignant neoplasm of other organs or systems
CPT/HCPCS: 36415; 71046; 80048; 80053; 80061; 83735; 83880; 84484; 85025; 85379; 85610; 85652; 85730; 86140; 93005; 93306; 94640; 96374; 99285

== ENCOUNTER 2020-08-08 11:00 | Observation (INO) | payer MEDICARE, BC ==
[2020-08-08] MEDS ORDERED: SODIUM CHLORIDE 0.9% 1,000 ML IV STA (11:48)
[2020-08-08] MEDS ORDERED: LORazepam 2 MG/ML INJ IV STA (11:49)
--- NOTE | 2020-08-08 12:37 | ED ---
Anxiety HPI - General Source: EMS, RN notes reviewed, old records reviewed Mode of arrival: EMS <Keturah Barrow - Last Filed: 08/08/20 14:59> <FarhanabrahamDian Cheryl - Last Filed: 08/08/20 16:05> - General Chief Complaint: Anxiety Stated Complaint: anxiety Time Seen by Provider: 08/08/20 11:11 - History of Present Illness Initial Comments: A1-year-old female presents emergency department today with episodes palpitations, near syncope and described anxiety and nausea this morning. She states that she is feeling flushed. Patient states that she did not take her anxiety medicine. She states that upon arriving to emergency room doing somewha t improved. She did call her neighbor who responded to her and then called EMS. Patient reports that she was diagnosed with recent pericardial effusion and was hospitalized 2 weeks ago. Patient states that she's been taking colchicine. She's had follow-up with cardiology last but has not had a repeat echo. (Keturah Barrow) - Related Data Home Medications: Home Medications Medication Instructions Recorded Confirmed Aspirin 81 mg PO MOWEFR 05/04/15 08/08/20 Atorvastatin Calcium [Lipitor] 40 mg PO HS 05/04/15 08/08/20 Levothyroxine Sodium [Synthroid] 50 mcg PO DAILY 05/04/15 08/08/20 Meclizine [Antivert] 25 mg PO TID PRN 05/04/15 08/08/20 ALPRAZolam 1 mg PO BID PRN 08/23/16 08/08/20 Insulin Aspart [NovoLOG Flexpen] See Protocol SQ BID PRN 08/23/16 08/08/20 Fluticasone/Salmeterol [Advair 1 puff INHALATION RT-BID 02/16/17 08/08/20 100-50 Diskus] Vit C/E/Zn/Coppr/Lutein/Zeaxan 1 cap PO BID 02/16/17 08/08/20 [Preservision Areds 2 Softgel] Irbesartan 300 mg PO HS 06/17/17 08/08/20 Cholecalciferol [Vitamin D3 (25 1,000 unit PO DAILY 01/29/19 08/08/20 Mcg = 1000 Iu)] Apixaban [Eliquis] 5 mg PO BID 08/17/19 08/08/20 Omeprazole [PriLOSEC] 40 mg PO DAILY 08/17/19 08/08/20 Pediatric Multivitamin No.30 1 tab PO DAILY 08/17/19 08/08/20 [Multivitamin Children's Gummies] Acetaminophen [Tylenol Arthritis] 1,300 mg PO DAILY PRN 07/25/20 08/08/20 Albuterol Inhaler [Ventolin Hfa 1 - 2 puff INHALATION RT-Q4H PRN 07/25/20 08/08/20 Inhaler] Furosemide [Lasix] 40 mg PO W/BRKFST 07/25/20 08/08/20 Glimepiride [Amaryl] 2 mg PO HS 07/25/20 08/08/20 Metoprolol Succinate [Toprol XL] 50 mg PO HS 07/25/20 08/08/20 Colchicine [Colcrys] 0.6 mg PO QAM 08/08/20 08/08/20 Spironolactone [Aldactone] 25 mg PO DAILY 08/08/20 08/08/20 Allergies/Adverse Reactions: Allergies Allergy/AdvReac Type Severity Reaction Status Date / Time doxycycline [From Vibramycin] Allergy Unknown Rash/Hives Verified 08/08/20 12:58 MITALI Inhibitors Allergy Unknown Verified 08/08/20 12:58 erythromycin base Allergy Rash/Hives Verified 08/08/20 12:58 Iodinated Contrast Media Allergy Unknown Verified 08/08/20 12:59 iodine Allergy Unknown Verified 08/08/20 12:58 lisinopril Allergy Unknown Verified 08/08/20 12:58 sulfamethoxazole Allergy Rash/Hives Verified 08/08/20 12:58 [From Bactrim] trimethoprim [From Bactrim] Allergy Rash/Hives Verified 08/08/20 12:58 moexipril HCl [From Univasc] AdvReac Cough, Verified 08/08/20 12:59 choking black olives Allergy Anaphylaxis Uncoded 08/08/20 12:59 Review of Systems ROS Other: All systems not noted in ROS Statement are negative. <Keturah Barrow - Last Filed: 08/08/20 14:59> ROS Other: All systems not noted in ROS Statement are negative. <Dian Burger - Last Filed: 08/08/20 16:05> ROS Statement: Those systems with pertinent positive or pertinent negative responses have been documented in the HPI. Past Medical History Past Medical History: CVA/TIA, Diabetes Mellitus Additional Past Medical History / Comment(s): Palpitations for years, NIDDM type II, hypothyroid, CVA 2011 with some L sided weakness, bilateral tinnitis, hepatitis back in the 1950's-unkn which type, hiatal hernia, sinus problems, chronic back pain, epistaxis in past but none lately, macular degeneration bilat erally, generalized arthritis. History of Any Multi-Drug Resistant Organisms: None Reported Past Surgical History: Ablation, Heart Catheterization, Hysterectomy, Joint Replacement, Orthopedic Surgery, Pacemaker Additional Past Surgical History / Comment(s): bilateral cataract surgery, eye injections for macular degeneration q 5 weeks, bilateral knee arthroscopies and arthroplasties, 08/07/16 cardiac cath-normal. loop recorder 08/2016 and removed, egd-12/14/18. Ablation 08/2019 Past Anesthesia/Blood Transfusion Reactions: Motion Sickness, Postoperative Nausea & Vomiting (PONV) Type of Cardiac Device: Permanent Pacemaker Device Placement Date:: 06/2018 Past Psychological History: Anxiety Smoking Status: Never smoker Past Alcohol Use History: None Reported Past Drug Use History: None Reported - Past Family History Father Family Medical History: Congestive Heart Failure (CHF) Additional Family Medical History / Comment(s): Father of CHF at the age of 89yrs. Mother Family Medical History: CVA/TIA, Osteoarthritis (OA) Additional Family Medical History / Comment(s): Mother of a CVA at the age of 89yrs. Brother(s) Family Medical History: Cancer Additional Family Medical History / Comment(s): lymphoma Sister(s) Family Medical History: Cancer Additional Family Medical History / Comment(s): melanoma <Keturah Barrow - Last Filed: 08/08/20 14:59> General Exam General appearance: alert, in no apparent distress Head exam: Present: atraumatic, normocephalic, normal inspection Eye exam: Present: normal appearance, PERRL, EOMI. Absent: scleral icterus, conjunctival injection, periorbital swelling ENT exam: Present: normal exam, mucous membranes moist Neck exam: Present: normal inspection. Absent: tenderness, meningismus, lymphadenopathy Respiratory exam: Present: normal lung sounds bilaterally. Absent: respiratory distress, wheezes, rales, rhonchi, stridor Cardiovascular Exam: Present: regular rate, normal rhythm, normal heart sounds. Absent: systolic murmur, diastolic murmur, rubs, gallop, clicks GI/Abdominal exam: Present: soft, normal bowel sounds. Absent: distended, tenderness, guarding, rebound, rigid Extremities exam: Present: normal inspection, full ROM, normal capillary refill. Absent: tenderness, pedal edema, joint swelling, calf tenderness Back exam: Present: normal inspection Neurological exam: Present: alert, oriented X3, CN II-XII intact Psychiatric exam: Present: normal affect, normal mood Skin exam: Present: warm, dry, intact, normal color. Absent: rash <Keturah Barrow - Last Filed: 08/08/20 14:59> - General Exam Comments Initial Comments: Alert and oriented 79-year-old female. No significant distress. (Keturah Barrow) Course Vital Signs 08/08/20 08/08/20 11:21 14:29 Temperature 97.8 F Pulse Rate 81 61 Respiratory 21 17 Rate Blood Pressure 150/93 140/62 O2 Sat by Pulse 98 100 Oximetry Medical Decision Making - Lab Data Result diagrams: 08/08/20 11:48 08/08/20 11:48 - Radiology Data Radiology results: report reviewed <Keturah Barrow - Last Filed: 08/08/20 14:59> - Lab Data Result diagrams: 08/08/20 11:48 08/08/20 11:48 <Dian Burger - Last Filed: 08/08/20 16:05> - Medical Decision Making 79-year-old female presents with anxiety, shaking episode with near-syncope and complains of chest tightness. She reports is resolving she does appear appeared to be quite anxious. Patient EKG was reviewed A for acute process. She was recently diagnosed pericardial effusion. He's been taking colchicine. At this time patient's BNP is mildly elevated 1999. On reevaluation she denies any further chest pain still shaky. Assessment concern for near syncopal episode and recent pericardial effusion with no repeat echo like to that the Patient for cardiac monitoring and repeat echo. Patient is agreeable to this plan. (Keturah Barrow) I was available for consultation in the emergency department. The history and physical exam were done by the midlevel provider. I was consulted for this patients care. I reviewed the case with the midlevel provider and based on their presentation of the patient, I agree with the assessment, medical decision making and plan of care as documented. Chart was dictated using [employer] dictation software. Attempts were made to correct any dictation errors however some typographical errors may persist. (Dian Burger) - Lab Data Lab Results 08/08/20 08/08/20 08/08/20 Range/Units 11:48 11:48 11:48 WBC 9.6 (3.8-10.6) k/uL RBC 5.10 (3.80-5.40) m/uL Hgb 13.8 (11.4-16.0) gm/dL Hct 43.0 (34.0-46.0) % MCV 84.3 (80.0-100.0) fL MCH 27.1 (25.0-35.0) pg MCHC 32.2 (31.0-37.0) g/dL RDW 15.9 H (11.5-15.5) % Plt Count 174 (150-450) k/uL Neutrophils % 74 % Lymphocytes % 18 % Monocytes % 4 % Eosinophils % 2 % Basophils % 1 % Neutrophils # 7.1 (1.3-7.7) k/uL Lymphocytes # 1.8 (1.0-4.8) k/uL Monocytes # 0.4 (0-1.0) k/uL Eosinophils # 0.1 (0-0.7) k/uL Basophils # 0.1 (0-0.2) k/uL PT 10.1 (9.0-12.0) sec INR 1.0 (<1.2) APTT 24.3 (22.0-30.0) sec Sodium 142 (137-145) mmol/L Potassium 3.9 (3.5-5.1) mmol/L Chloride 106 (98-107) mmol/L Carbon Dioxide 26 (22-30) mmol/L Anion Gap 10 mmol/L BUN 20 H (7-17) mg/dL Creatinine 0.86 (0.52-1.04) mg/dL Est GFR (CKD-EPI)AfAm 74 (>60 ml/min/1.73 sqM) Est GFR (CKD-EPI)NonAf 64 (>60 ml/min/1.73 sqM) Glucose 111 H (74-99) mg/dL Calcium 9.6 (8.4-10.2) mg/dL Magnesium 1.9 (1.6-2.3) mg/dL Total Bilirubin 0.5 (0.2-1.3) mg/dL AST 28 (14-36) U/L ALT 19 (4-34) U/L Alkaline Phosphatase 126 (38-126) U/L Troponin I (0.000-0.034) ng/mL NT-Pro-B Natriuret Pep pg/mL Total Protein 7.3 (6.3-8.2) g/dL Albumin 4.3 (3.5-5.0) g/dL Lipase 65 (23-300) U/L 08/08/20 08/08/20 Range/Units 11:48 11:48 WBC (3.8-10.6) k/uL RBC (3.80-5.40) m/uL Hgb (11.4-16.0) gm/dL Hct (34.0-46.0) % MCV (80.0-100.0) fL MCH (25.0-35.0) pg MCHC (31.0-37.0) g/dL RDW (11.5-15.5) % Plt Count (150-450) k/uL Neutrophils % % Lymphocytes % % Monocytes % % Eosinophils % % Basophils % % Neutrophils # (1.3-7.7) k/uL Lymphocytes # (1.0-4.8) k/uL Monocytes # (0-1.0) k/uL Eosinophils # (0-0.7) k/uL Basophils # (0-0.2) k/uL PT (9.0-12.0) sec INR (<1.2) APTT (22.0-30.0) sec Sodium (137-145) mmol/L Potassium (3.5-5.1) mmol/L Chloride (98-107) mmol/L Carbon Dioxide (22-30) mmol/L Anion Gap mmol/L BUN (7-17) mg/dL Creatinine (0.52-1.04) mg/dL Est GFR (CKD-EPI)AfAm (>60 ml/min/1.73 sqM) Est GFR (CKD-EPI)NonAf (>60 ml/min/1.73 sqM) Glucose (74-99) mg/dL Calcium (8.4-10.2) mg/dL Magnesium (1.6-2.3) mg/dL Total Bilirubin (0.2-1.3) mg/dL AST (14-36) U/L ALT (4-34) U/L Alkaline Phosphatase (38-126) U/L Troponin I <0.012 (0.000-0.034) ng/mL NT-Pro-B Natriuret Pep 2470 pg/mL Total Protein (6.3-8.2) g/dL Albumin (3.5-5.0) g/dL Lipase (23-300) U/L 08/08/20 12:55 EKG shows normal sinus rhythm with first-degree AV block. Occasional PVCs. Left axis deviation. Left bundle branch block. Ventricular rate 71 beats were minute. Pulse 210 ms. She rastafarian is 144 ms. QT QTc is 434/471 ms. (Keturah Barrow) - Radiology Data No acute process. Cardiomegaly. (Keturah Barrow) Disposition Is patient prescribed a controlled substance at d/c from ED?: No Time of Disposition: 15:01 <Keturah Barrow - Last Filed: 08/08/20 14:59> <Dian Burger - Last Filed: 08/08/20 16:05> Clinical Impression: Near syncope, Pericardial effusion, Palpitations, Anxiety Disposition: ADMITTED IP TO THIS HOSP
[2020-08-08] MEDS: SODIUM CHLORIDE 0.9% 1,000 ML IV STA ×2 (13:17→20:18)
[2020-08-08 13:42] LABS: Basophils # (A) 0.1 k/uL (0-0.2); Basophils % (A) 1 %; Eosinophils # (A) 0.1 k/uL (0-0.7); Eosinophils % (A) 2 %; HGB 13.8 gm/dL (11.4-16.0); Lymphocytes # (A) 1.8 k/uL (1.0-4.8); Lymphocytes % (A) 18 %; MCH 27.1 pg (25.0-35.0); MCHC 32.2 g/dL (31.0-37.0); MCV 84.3 fL (80.0-100.0); Mean Platelet Volume 9.1; Monocytes # (A) 0.4 k/uL (0-1.0); Monocytes % (A) 4 %; Neutrophils # (A) 7.1 k/uL (1.3-7.7); Neutrophils % (A) 74 %; Platelet Count 174 k/uL (150-450); RDW 15.9 % (11.5-15.5); WBC 9.6 k/uL (3.8-10.6)
--- NOTE | 2020-08-08 13:48 | XR ---
EXAMINATION TYPE: XR chest 2V DATE OF EXAM: 08/08/2020 COMPARISON: 07/25/2020 TECHNIQUE: PA and lateral views submitted. HISTORY: Chest pain FINDINGS: The lungs are clear and there is no pneumothorax, pleural effusion, or focal pneumonia. Cardiac dev ice and cardiomegaly seen. No overt failure. Arthropathy of the shoulder. Hypertrophic and degenerati ve change of the spine. IMPRESSION: 1. No acute process. Cardiomegaly.
[2020-08-08 13:55] LABS: Partial Thromboplastin Time 24.3 sec (22.0-30.0); Prothrombin Time 10.1 sec (9.0-12.0)
[2020-08-08 13:56] LABS: Albumin 4.3 g/dL (3.5-5.0); Calcium 9.6 mg/dL (8.4-10.2); Magnesium 1.9 mg/dL (1.6-2.3); Potassium 3.9 mmol/L (3.5-5.1); Total Bilirubin 0.5 mg/dL (0.2-1.3); Total Protein 7.3 g/dL (6.3-8.2)
[2020-08-08] MEDS ORDERED: KETOROLAC 15 MG/ML 1 ML VIAL IVP PRN (15:02)
[2020-08-08] MEDS ORDERED: ONDANSETRON 4 MG/2 ML VIAL IVP PRN (15:02)
[2020-08-08] MEDS ORDERED: MORPHINE SULFATE 4 MG/ML SYRINGE IV PRN (15:02)
[2020-08-08] MEDS ORDERED: ACETAMINOPHEN TAB 325 MG TAB PO PRN (15:02)
[2020-08-08] MEDS ORDERED: NALOXONE 0.4 MG/ML 1 ML VIAL IV PRN (15:02)
[2020-08-08] MEDS ORDERED: LORazepam 2 MG/ML INJ IV PRN (15:02)
[2020-08-08] MEDS ORDERED: IBUPROFEN 400 MG TAB PO PRN (15:02)
--- NOTE | 2020-08-08 17:23 | ECHOF ---
Referral Reason:near syncope, pericardial effusion MEASUREMENTS -------- HEIGHT: 157.5 cm WEIGHT: 84.8 kg BP: IVSd: 1.2 cm (0.6 - 1.1) LVIDd: 4.8 cm (3.9 - 5.3) LVPWd: 1.2 cm (0.6 - 1.1) IVSs: 1.1 cm LVIDs: 4.6 cm LVPWs: 1.3 cm Ao Diam: 2.6 cm (2.0 - 3.7) AV Cusp: 1.6 cm (1.5 - 2.6) LA Diam: 3.6 cm (2.7 - 3.8) FINDINGS -------- Limited study for pericardial effusion. Overall left ventricular systolic function is mildly impaired with, an EF between 45 - 50 %. There is a moderate, generalized pericardial effusion present. CONCLUSIONS -------- 1. Limited study for pericardial effusion. 2. There is a moderate, generalized pericardial effusion present. [employer]: Concetta Alvarez RDCS
[2020-08-08 20:14] LABS: Glucose,Whole Blood 141 mg/dL (75-99)
[2020-08-08] MEDS: APIXABAN 5 MG TAB PO SCH (20:18)
[2020-08-08] MEDS: SODIUM CHLORIDE 0.9% 1,000 ML IV SCH (20:19)
[2020-08-08] MEDS ORDERED: MECLIZINE 25 MG TAB PO PRN (20:46)
[2020-08-08] MEDS ORDERED: ALBUTEROL NEBULIZED 2.5 MG/3 ML INHALATION PRN (20:46)
[2020-08-08] MEDS ORDERED: ACETAMINOPHEN TAB 500 MG TAB PO PRN (20:46)
[2020-08-08] MEDS ORDERED: GLIMEPIRIDE 2 MG TAB PO SCH (21:00)
[2020-08-08] MEDS ORDERED: LOSARTAN 50 MG TAB PO SCH (21:00)
[2020-08-08] MEDS ORDERED: ATORVASTATIN 40 MG TAB PO SCH (21:00)
[2020-08-08] MEDS: VIT A,C & E-LUTEIN-MINERALS 1 EACH TAB PO SCH (22:25)
[2020-08-08] MEDS: ALPRAZolam 0.25 MG TAB PO PRN (22:26)
--- NOTE | 2020-08-08 23:41 | HP ---
HISTORY AND PHYSICAL DATE OF SERVICE: 08/08/2020 CHIEF COMPLAINTS: Dizziness and presyncope. HISTORY OF PRESENT ILLNESS: This 79-year-old woman with a past medical history of multiple medical problems including atrial fibrillation, CAD, CVA, TIA, diabetes type 2, hypertension, hyperlipidemia, history of DJD being followed by Dr. Mark Macias in the outpatient setting is complaining of dizziness. The patient also had episodes of palpitations, near syncope. The patient also had some nausea and anxiety also. The patient is under a lot of stress according to her. Recently, her younger brother of coronary artery disease and the is on Friday according to her. There is no history of fever, rigors, chills at this time. PAST MEDICAL HISTORY: History of atrial fibrillation, CAD, CVA, TIA, diabetes type 2, hypertension, hyperlipidemia, liver disease, pericarditis and pericardial effusion. MEDICATIONS: Home medications are multivitamins, Toprol-XL, Antivert, NovoLog, Amaryl, Lipitor, aspirin, Ventolin, Tylenol, Aldactone, Prilosec, Synthroid, Lasix, Advair, Colcrys, vitamin D3, Eliquis, Xanax. ALLERGIES: DOXYCYCLINE MITALI INHIBITORS, ERYTHROMYCIN BASE, IODINATED CONTRAST, CODEINE, LISINOPRIL, SULFAMETHOXAZOLE, BACTRIM, UNIVASC, . FAMILY HISTORY: History of CHF in the family. SOCIAL HISTORY: No history of smoking. No history of alcohol. REVIEW OF SYSTEMS: ENT: Diminished vision, diminished hearing. Otherwise mentioned earlier. CARDIOVASCULAR: As mentioned earlier. RESPIRATIONS: No cough. No hemoptysis. GI no nausea or vomiting. : No dysuria. NERVOUS SYSTEM: As mentioned earlier. ALLERGIES/IMMUNOLOGY: No asthma or hayfever. MUSCULOSKELETAL as mentioned earlier. HEMATOLOGY/ONCOLOGY: No history of anemia. ENDOCRINE: Hypothyroidism, diabetes. CONSTITUTIONAL: As mentioned earlier. DERMATOLOGY: Negative. RHEUMATOLOGY: Negative. PSYCHIATRIC: As mentioned earlier. PHYSICAL EXAMINATION: Alert and oriented times three. Pulse is 81. Blood pressure 151/82. Respirations 21. Temperature 97.2, pulse ox 98% on room air. HEENT: Conjunctive normal. Oral mucosa moist. NECK: No jugular venous distention. No carotid bruit. No lymph node enlargement. CARDIOVASCULAR: S1, S2 muffled. No S3, no S4. RESPIRATORY: Breath sounds diminished in the bases. No rhonchi. No crackles. ABDOMEN: Soft, nontender. No mass palpable. LEGS no edema. No swelling. NERVOUS SYSTEM: Higher functions as mentioned earlier. Moves all 4 limbs. No focal motor or sensory deficits. Lymphatics: No lymph nodes palpable in the neck, axillae or groin. Skin: No ulcer. No rash. No bleeding. JOINTS: No active deforming arthropathy. LABS: WBC 9.6, hemoglobin 13.8, sodium 142, potassium 3.9 and glucose 114. ASSESSMENT: 1. Presyncope for evaluation. 2. Possible anxiety state and social stresses. 3. History of atrial fibrillation. 4. Coronary artery disease. 5. Cerebrovascular accident, transient ischemic attack. 6. Diabetes mellitus type 2. 7. Hypertension. 8. Hyperlipidemia. 9. History of liver disease. 10.Hypothyroidism. 11.Acute on chronic pericarditis history. 12.History of cerebrovascular accident. 13.History of cardiac ablation. 14.History of motion sickness. 15.History of anxiety. 16.Obesity with body mass of 34.6. 17.FULL CODE. RECOMMENDATIONS AND DISCUSSION: This 79-year-old woman who presented with multiple complex medical issues, we will monitor the patient closely. Resume the home medications. Cardiology consultations. Otherwise, I would also recommend Xanax p.r.n. and orthostatic vitals. Otherwise, telemetry. Rule out possibility of any cardiac arrhythmias. Prognosis guarded because of multiple complex medical issues. Home medications will be continued. A copy of dictation being forwarded to Dr. Mark Macias, who is the primary physician. MMSANDRAL / IJN: [id number] /
--- NOTE | 2020-08-09 00:36 | CONS ---
SIMA Peace is an 79-year-old lady who is admitted to hospital with palpitations and dizziness. She was in the hospital 10 days ago when she presented with symptoms of left-sided chest pain and was diagnosed with pericarditis and pericardial effusion. The patient has history of paroxysmal atrial fibrillation and has had AV pallavi ablation, sick sinus syndrome status post permanent pacemaker, hypertension, dyslipidemia, peripheral vascular disease and prior CVA. An echocardiogram repeated today shows moderate generalized pericardial effusion without any evidence of tamponade. She has impaired LV function. The patient has known CAD and underwent a cardiac catheterization in 2011 that showed a 40% LAD stenosis. The patient, at the time of my evaluation, appears comfortable at rest and is free of significant symptoms. She thinks that her symptomatology may be related to anxiety. An EKG shows sinus rhythm with left bundle branch block. LABS: Show that the hemoglobin is normal at 13.8, platelet count is normal. Potassium is 3.9, creatinine is 0.8. Troponin is negative. PAST MEDICAL HISTORY: Significant for coronary artery disease. Paroxysmal atrial fibrillation, sick sinus syndrome status post permanent pacemaker. Recent admission with pericarditis. MEDICATIONS: Medications at home included Toprol-XL 50 daily, Antivert, insulin, Amaryl, Lipitor, Prilosec, Aldactone, Lasix, Synthroid, Eliquis. ALLERGIES: SHE HAS MULTIPLE DRUG ALLERGIES. THEY ARE CHARTED. FAMILY HISTORY: Negative for premature coronary artery disease. SOCIAL HISTORY: Negative for current smoking, EtOH abuse, or drug abuse. REVIEW OF SYSTEMS: HEENT is unremarkable. Cardiac as described above. Respiratory as described above. GI negative. Genitourinary negative. Allergy negative. Immunological: Negative. Skin negative. Musculoskeletal: Significant for arthritis. PSYCHOSOCIAL: Negative. ENDOCRINE: Negative. Hematological negative. Constitutional negative. Oncological negative. EXAM: Patient is comfortable at rest. Vital signs are stable. There is no jugular venous distention. Carotid upstroke is normal. There is no bruit. Chest exam reveals good air entry bilaterally. Heart exam reveals first and second heart sounds. No gallop. No murmur. No rub. Abdomen is soft, nontender. Exam of extremities did not reveal any edema. Peripheral pulses are felt. ASSESSMENT: 1. Palpitations and dizziness. 2. Moderate generalized pericardial effusion without any evidence of tamponade. 3. Paroxysmal atrial fibrillation. 4. Sick sinus syndrome status post permanent pacemaker. PLAN: Please continue the patient on current medications including Toprol-XL, colchicine and Eliquis that she is currently on. We will see how the patient responds to treatment and decide on further course of action. MMSANDRAL / IJN: [id number] /
[2020-08-09] MEDS: SODIUM CHLORIDE 0.9% 1,000 ML IV SCH ×2 (03:29→13:09)
[2020-08-09 03:54] VITALS: RESP 18
[2020-08-09 06:29] LABS: Glucose,Whole Blood 79 mg/dL (75-99)
[2020-08-09] MEDS ORDERED: LEVOTHYROXINE 50 MCG TAB PO SCH (06:30)
[2020-08-09] MEDS ORDERED: SYMBICORT 80-4.5 MCG INHALER INHALATION SCH (08:00)
[2020-08-09] MEDS: APIXABAN 5 MG TAB PO SCH (08:32)
[2020-08-09] MEDS: VIT A,C & E-LUTEIN-MINERALS 1 EACH TAB PO SCH (08:38)
[2020-08-09] MEDS ORDERED: MULTIVITAMINS, THERA 1 EACH TAB PO SCH (09:00)
[2020-08-09] MEDS ORDERED: NON FORMULARY DRUG (Omeprazole 40 MG Capsule.Dr) PO SCH (09:00)
[2020-08-09] MEDS ORDERED: ASPIRIN 81 MG PO SCH (09:00)
[2020-08-09] MEDS ORDERED: COLCHICINE 0.6 MG EACH PO SCH (09:00)
[2020-08-09] MEDS ORDERED: PANTOPRAZOLE 40 MG/10 ML VIAL IV SCH (09:00)
[2020-08-09] MEDS ORDERED: CHOLECALCIFEROL 1,000 UNIT TAB PO SCH (09:00)
[2020-08-09] MEDS ORDERED: METOPROLOL SUCCINATE (ER) 50 MG TAB.ER.24H PO SCH (09:00)
[2020-08-09] MEDS ORDERED: SPIRONOLACTONE 25 MG TAB PO SCH (09:00)
[2020-08-09 09:08] VITALS: BP 138/95
[2020-08-09 09:23] LABS: Anisocytosis Slight; Basophils % (A) 1 %; Eosinophils # (A) 0.1 k/uL (0-0.7); Eosinophils % (A) 1 %; HCT 39.9 % (34.0-46.0); HGB 12.5 gm/dL (11.4-16.0); Lymphocytes # (A) 1.7 k/uL (1.0-4.8); Lymphocytes % (A) 24 %; MCH 26.9 pg (25.0-35.0); MCHC 31.4 g/dL (31.0-37.0); MCV 85.6 fL (80.0-100.0); Mean Platelet Volume 8.8; Monocytes # (A) 0.3 k/uL (0-1.0); Monocytes % (A) 4 %; Neutrophils # (A) 4.9 k/uL (1.3-7.7); Neutrophils % (A) 70 %; Platelet Count 168 k/uL (150-450); RBC 4.66 m/uL (3.80-5.40); RDW 16.1 % (11.5-15.5)
[2020-08-09 09:26] LABS: Calcium 8.9 mg/dL (8.4-10.2); Potassium 4.5 mmol/L (3.5-5.1)
--- NOTE | 2020-08-09 10:52 | P.PN ---
Subjective This is a pleasant 79-year-old female past medical history significant for recent diagnosis of pericardial effusion, coronary artery disease, paroxysmal atrial fibrillation status post AV node ablation, sick sinus syndrome status post permanent pacemaker implantation, hypertension, dyslipidemia and cardiomyopathy. She follows in the office with Dr. Suarez. She is currently being treated for pericardial effusion with colchicine and Aldactone as an outpatient. She is seen and examined sitting up in bed in no acute distress. She states she is feeling much better since admission. She denies chest pain, shortness of breath, dizziness or palpitations. Blood pressure 134/72 heart rate 96 afebrile maintaining oxygen saturation on room air. Orthostatic vital signs are unremarkable. Laboratory data reviewed, WBC 7.0, hemoglobin 12.5, platelets 168, sodium 142, potassium 4.5, creatinine 0.97 and cardiac enzymes negative 3. Limited echo reveals mildly impaired LV systolic function ejection fraction 45-50% with a moderate generalized pericardial effusion. Pt is very tearful during exam regarding the recent loss of her brother and impending burial Friday. GENERAL: Well-appearing, well-nourished and in no acute distress. NECK: Supple without JVD or thyromegaly. LUNGS: Breath sounds clear to auscultation bilaterally. Respiration equal and unlabored. No wheezes, rales or rhonchi. HEART: Regular rate and rhythm without murmurs, rubs or gallops. S1 and S2 heard. EXTREMITIES: Normal range of motion, no edema. No clubbing or cyanosis. Peripheral pulses intact. ASSESSMENT Palpitations and dizziness Pericardial effusion with no evidence of tamponade Paroxysmal atrial fibrillation on long-term anticoagulation Sick sinus syndrome status post permanent pacemaker implantation Nonobstructive coronary artery disease PLAN Interrogate pacemaker. Continue current medical regimen. Nurse Practitioner note has been reviewed, I agree with a documented findings and plan of care. Patient was seen and examined. Objective - Vital Signs Vital signs: Vital Signs Temp 97.8 F 08/09/20 03:00 Pulse 88 08/09/20 09:06 Resp 18 08/09/20 03:00 BP 138/95 08/09/20 09:06 Pulse Ox 95 08/08/20 21:00 Intake & Output 08/08/20 08/09/20 08/09/20 18:59 06:59 18:59 Intake Total 240 Balance 240 Weight 84.822 kg Intake: Oral 240 Other: Voiding Method Bedside Commode # Voids 2 - Labs CBC & Chem 7: 08/09/20 08:29 08/09/20 08:29 Labs: Abnormal Lab Results - Last 24 Hours (Table) 08/08/20 08/08/20 08/08/20 Range/Units 11:48 11:48 20:12 RDW 15.9 H (11.5-15.5) % Chloride (98-107) mmol/L BUN 20 H (7-17) mg/dL Glucose 111 H (74-99) mg/dL POC Glucose (mg/dL) 141 H (75-99) mg/dL 08/09/20 08/09/20 Range/Units 08:29 08:29 RDW 16.1 H (11.5-15.5) % Chloride 109 H (98-107) mmol/L BUN 20 H (7-17) mg/dL Glucose (74-99) mg/dL POC Glucose (mg/dL) (75-99) mg/dL
[2020-08-09 11:21] VITALS: TEMP 98
[2020-08-09] MEDS: ALPRAZolam 0.25 MG TAB PO PRN (12:27)
[2020-08-09 13:05] LABS: Glucose,Whole Blood 87 mg/dL (75-99)
[2020-08-09 16:37] VITALS: PULSE 70
--- NOTE | 2020-08-10 09:44 | DS ---
DISCHARGE SUMMARY DATE OF SERVICE: 08/09/2020 FINAL DIAGNOSES: 1. Presyncope, possibly anxiety state and panic attacks. 2. Possible anxiety because of social stressors. 3. History of atrial fibrillation, paroxysmal. 4. CAD. 5. CVA, TIA. 6. Diabetes mellitus type 2. 7. Hypertension. 8. Hyperlipidemia. 9. History of liver disease. 10.Hypothyroidism. 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 12.History of cerebrovascular accident. 13.History of cardiac ablation. 14.History of motion sickness. 15.History of anxiety. 16.Obesity with body mass index of 34.6. 17.FULL CODE. DISCHARGE DISPOSITION: The patient will be discharged in a stable condition with guarded prognosis. HISTORY OF PRESENT ILLNESS: This is an 79-year-old woman with a past medical history with presyncope and features of some anxiety. The patient was treated symptomatically, improved significantly. Cardiology saw the patient. Basic investigation negative and the patient discharged in stable condition with guarded prognosis. On exam, vitals are stable. CARDIOVASCULAR: S1, S2. ABDOMEN: Soft. NERVOUS SYSTEM: No focal discharge. DISCHARGE ADVICE: 1. Diet is cardiac diet. 2. Follow up with Dr. Macias in 2-3 days. 3. Follow up with Cardiology as recommended. MEDICATIONS ARE: 1. Fluticasone. 2. Salmeterol. 3. Advair 1 puff b.i.d. 4. Aldactone 25 mg daily. 5. Xanax 1 mg b.i.d. p.r.n. 6. Amaryl 2 mg q.h.s. 7. Antivert 25 mg t.i.d. p.r.n. 8. Aspirin 81 mg p.o. Friday, Friday. 9. Colcrys 0.6 mg q.a.m. 10.Eliquis 5 mg p.o. b.i.d. 11.Trazodone 300 mg q.h.s. 12.Lasix 40 mg with breakfast. 13.Lipitor 40 mg q.h.s. 14.Multivitamins 1 p.o. daily. 15.NovoLog FlexPen daily. 16.Vitamin E zinc p.o. b.i.d. 17.Prilosec 40 mg p.o. daily. 18.Synthroid 50 mcg p.o. daily. 19.Toprol-XL 50 mg q.h.s. 20.Tylenol arthritis. 21.Albuterol p.r.n. 22.Vitamin D3 one thousand daily. Once again, the patient will be discharged in stable condition with guarded prognosis. MMSANDRAL / LEANN: [id number] /
== END 2020-08-09 17:30 | disposition home or self-care (01) ==
LOC: EC 11:00 → 3NCARDOBS 14:40
PROVIDERS: ADMIT Hospitalist; ATTEND Hospitalist
DX: R55 Syncope and collapse (principal); F41.9 Anxiety disorder, unspecified; I25.10 Atherosclerotic heart disease of native coronary artery without angina pectoris; I10 Essential (primary) hypertension; I31.3 Pericardial effusion (noninflammatory); E78.5 Hyperlipidemia, unspecified; K76.9 Liver disease, unspecified; E03.9 Hypothyroidism, unspecified; I48.0 Paroxysmal atrial fibrillation; I31.9 Disease of pericardium, unspecified; I44.7 Left bundle-branch block, unspecified; E11.9 Type 2 diabetes mellitus without complications; R00.2 Palpitations; E66.9 Obesity, unspecified; Z68.34 Body mass index [BMI] 34.0-34.9, adult; I69.354 Hemiplegia and hemiparesis following cerebral infarction affecting left non-dominant side; H93.13 Tinnitus, bilateral; K44.9 Diaphragmatic hernia without obstruction or gangrene; G89.29 Other chronic pain; M54.9 Dorsalgia, unspecified; H35.30 Unspecified macular degeneration; M19.90 Unspecified osteoarthritis, unspecified site; Z90.710 Acquired absence of both cervix and uterus; Z95.0 Presence of cardiac pacemaker; Z98.42 Cataract extraction status, left eye; Z98.41 Cataract extraction status, right eye; Z96.653 Presence of artificial knee joint, bilateral; Z82.49 Family history of ischemic heart disease and other diseases of the circulatory system; Z82.61 Family history of arthritis; Z82.3 Family history of stroke; Z80.7 Family history of other malignant neoplasms of lymphoid, hematopoietic and related tissues; Z80.8 Family history of malignant neoplasm of other organs or systems; Z79.01 Long term (current) use of anticoagulants; Z79.82 Long term (current) use of aspirin; Z79.890 Hormone replacement therapy; Z79.4 Long term (current) use of insulin; Z79.899 Other long term (current) drug therapy; Z88.1 Allergy status to other antibiotic agents; Z88.2 Allergy status to sulfonamides; Z91.018 Allergy to other foods; Z91.048 Other nonmedicinal substance allergy status; Z88.8 Allergy status to other drugs, medicaments and biological substances; Z91.041 Radiographic dye allergy status; I42.9 Cardiomyopathy, unspecified
CPT/HCPCS: 93005 ×2; 96361 ×3; 96375; 96376; 96374; 99285; 36415; 83880; 80053; 80048; 83690; 83735; 84484; 85025 ×2; 85610; 85730; 71046; G0378 ×2; C8924; J2060; J2405; C9113; Q9950; 93308

== ENCOUNTER → 2020-08-14 | Outpatient (CLI) | payer MEDICARE, BC ==
[2020-08-14 20:14] LABS: Hemoglobin A1C 5.9 % (4.0-6.0)
[2020-08-14 21:06] LABS: African American GFR (CKD) 61.2 (60.0-200.0); Albumin 4.1 g/dL (3.80-4.90); Albumin/Globulin Ratio 1.78 (1.60-3.17); Anion Gap 11.6 mmol/L (4.00-12.00); Calcium 9.1 mg/dL (8.7-10.3); Carbon Dioxide 25.4 mmol/L (21.6-31.8); Globulin 2.3 g/dL (1.6-3.3); Non-African American GFR(CKD) 52.8 (60.0-200.0); Potassium 4.4 mmol/L (3.5-5.5); Total Bilirubin 0.4 mg/dL (0.3-1.2); Total Protein 6.4 g/dL (6.2-8.2)
[2020-08-15 10:16] LABS: Microalbumin Creatinine Ratio <30 mg/g Creat (0-30); Urine Creatinine 21.7 mg/dL
== END | disposition home or self-care (01) ==
LOC: LABWHC1 11:46
PROVIDERS: ATTEND Internal Medicine Endocrinology, Diabetes & Metabolism
DX: E11.8 Type 2 diabetes mellitus with unspecified complications (principal)
CPT/HCPCS: 36415; 80053; 82043; 82570; 83036; 84443

== ENCOUNTER → 2020-09-27 | Outpatient (CLI) | payer MEDICARE, BC ==
[2020-09-27 09:41] LABS: Anisocytosis Slight; HCT 37.7 % (34.0-46.0); HGB 12.8 gm/dL (11.4-16.0); MCH 29.4 pg (25.0-35.0); MCHC 33.8 g/dL (31.0-37.0); MCV 86.9 fL (80.0-100.0); Mean Platelet Volume 8.6; Platelet Count 183 k/uL (150-450); RBC 4.34 m/uL (3.80-5.40); RDW 16.5 % (11.5-15.5); WBC 9.5 k/uL (3.8-10.6)
[2020-09-27 10:02] LABS: Potassium 4.2 mmol/L (3.5-5.1)
== END | disposition home or self-care (01) ==
LOC: LABPAT 08:49
PROVIDERS: ATTEND Internal Medicine Clinical Cardiac Electrophysiology
DX: Z01.818 Encounter for other preprocedural examination (principal); I42.0 Dilated cardiomyopathy
CPT/HCPCS: 36415; 80051; 82565; 83735; 84443; 84520; 85027

== ENCOUNTER 2020-10-09 06:05 | Day surgery (SDC) | payer MEDICARE, BC ==
[2020-10-02 15:24] VITALS: BMI 32.7
[~2020-10-09 06:05] MED LIST changes: +LACTATED RINGERS 1,000 ML IV SCH; +SODIUM CHLORIDE 0.9% 1,000 ML IV SCH; -diphenhydrAMINE 50 MG/ML 1 ML VIAL IVP ONE; -methylPREDNISolone SOD SUCCI 125 MG/2 ML VIAL IV ONE
[2020-10-09] MEDS ORDERED: SODIUM CHLORIDE 0.9% 1,000 ML IV ONE (06:25)
[2020-10-09 06:42] LABS: Glucose,Whole Blood 91 mg/dL (75-99)
[2020-10-09 06:47] VITALS: TEMP 98.9
[2020-10-09] MEDS ORDERED: MIDAZOLAM 2 MG/2 ML VIAL ONE (07:29)
[2020-10-09] MEDS ORDERED: fentaNYL (PF) 50 MCG/ML 2 ML AMP ONE (07:29)
[2020-10-09] MEDS ORDERED: PROPOFOL 10 MG/ML 20 ML VIAL IV ONE (07:29)
[2020-10-09] MEDS ORDERED: ONDANSETRON 4 MG/2 ML VIAL ONE (07:29)
[2020-10-09] MEDS ORDERED: diphenhydrAMINE 50 MG/ML 1 ML VIAL ONE (07:43)
[2020-10-09] MEDS ORDERED: LIDOCAINE 1% INJ 10MG/ML (20 ML MDV) ONE (07:44)
[2020-10-09] MEDS: ceFAZolin 1,000 MG in SODIUM CHLORIDE 0.9% IRRIGATIO 250 ML IRRIGATION ONE ×2 (07:44→08:02)
[2020-10-09] MEDS ORDERED: methylPREDNISolone SOD SUCCI 125 MG/2 ML VIAL ONE (07:46)
[2020-10-09] MEDS ORDERED: methylPREDNISolone SOD SUCCI 125 MG/2 ML VIAL IV ONE (07:50)
[2020-10-09] MEDS ORDERED: diphenhydrAMINE 50 MG/ML 1 ML VIAL IVP ONE (07:50)
[2020-10-09] MEDS: IOPAMIDOL-370 50ML BTL INJ ONE ×2 (07:55→09:32)
[2020-10-09] MEDS: LIDOCAINE 1% INJ 10MG/ML (20 ML MDV) SQ ONE ×2 (08:12→08:26)
[2020-10-09] MEDS ORDERED: ACETAMINOPHEN TAB 325 MG TAB PO PRN (10:27)
--- NOTE | 2020-10-09 10:59 | XR ---
EXAMINATION TYPE: XR chest 1V portable DATE OF EXAM: 10/09/2020 Comparison: 08/08/2020 Clinical History: 79-year-old female Lead placement check Findings: Left anterior chest wall pacemaker generator with right atrial, right ventricular, and coronary sinus leads. Heart upper limits of normal in size. Mild interstitial prominence as a chronic appearance. No consol idation or sizable effusion seen. Impression: Borderline heart size. Chronic appearing changes. No definite acute process. New coronary sinus lead.
--- NOTE | 2020-10-09 11:08 | P.EPPROC ---
- EP Procedure Note Electrophysiology Procedure Note: Diagnosis Pacemaker dependency, atrial fibrillation paroxysmal, dual-chamber pacemaker implant, status post AV node ablation Cardio myopathy and heart failure, systolic Bradycardia, complete heart block Left upper extremity venogram 15 mL of IV dye injected Occluded subclavian axillary junction Patent rest of subclavian innominate vein Patient was prepped and draped as a protocol IV antibiotics administered. Axillary vein was first accessed at the level of the first rib he did the ang ioplasty via would not cross into the central circulation A central subclavian access was obtained successfully Cinefluoroscopy of the lung shearer did not reveal any pneumothorax After regular via, this was exchanged for an advantage wire This sheaths would not pass through and therefore progressive dilation with a 6- Czech followed by a 9-Czech and then a 10-Czech dilator to perform venoplast y of the subclavian vein stenosis Following that a 9.5-Czech sheath was placed, short sheath Via this a coronary sinus catheter was placed along with the Andrew sinus sheath The Andrew sinus was accessed and the posterior lateral vein was directly subselected The main Andrew sinus body and the posterior lateral vein had a common os. Venography was performed. The patient did not have any other suitable veins other than the posterior lateral vein A [employer] transcriptionist was placed. 75 cm, model number 1458Q, serial number [id number] This was placed in the vein. Multiple attempts were made since the thresholds were high and diaphragmatic stimulation was seen along with sleep most of the vein length Finally the lead was placed in a stable position The sheath was removed The lead was secured to the underlying pectoralis muscle The old dual-chamber pacer the generator was explanted New biventricular pacemaker was implanted, [employer], PM [id number], serial number [id number] The leads and the generator in place and subfascial pocket and the wound was closed in 3 layers and dressed per protocol The old chronic leads were interrogated Atrial pacing threshold 0.4 7.4 ms, P waves 3.4 mV and pacing impedance of 530 ohms RV pacing threshold 0.5 V at 0.5 ms and pacing impedance of 690 ohms line most LV lead configurations had very high thresholds as well as diaphragmatic stimulation at the capture voltage Finally no diaphragmatic stimulation is noted on P4-can configuration Threshold 1.25 V at 1.5 ms pacing impedance of 390 ohms and no diaphragmatic stimulation The device was then programmed to DDDR mode with an rate of 60-1:30 bpm and and LV RV offset of 50 ms paced AV delay of 200 ms Patient tolerated procedure well without any acute complications Result Successful access of the central subclavian vein despite occlusion at the axillary/subcu junction Venoplasty of the stenosed vein junction LV lead placement in the posterior lateral vein High thresholds along most of the vein, phrenic nerve stimulation along most of the vein P4-Can configuration had the best threshold and no diaphragmatic stimulation
[2020-10-09] MEDS ORDERED: ACETAMINOPHEN IV (For NPO) 1,000 MG in EMPTY BAG 1 BAG IVPB ONE (12:00)
[2020-10-09 12:34] VITALS: RESP 16
[2020-10-09 13:08] VITALS: BP 132/68; PULSE 72
== END 2020-10-09 13:08 | disposition home or self-care (01) ==
LOC: CATHEP 06:05
PROVIDERS: ATTEND Internal Medicine Clinical Cardiac Electrophysiology
DX: Z45.018 Encounter for adjustment and management of other part of cardiac pacemaker (principal); I82.B12 Acute embolism and thrombosis of left subclavian vein; I48.0 Paroxysmal atrial fibrillation; I42.0 Dilated cardiomyopathy; I50.20 Unspecified systolic (congestive) heart failure; I44.2 Atrioventricular block, complete; I31.3 Pericardial effusion (noninflammatory); I25.10 Atherosclerotic heart disease of native coronary artery without angina pectoris; Z79.01 Long term (current) use of anticoagulants; E11.9 Type 2 diabetes mellitus without complications; I11.0 Hypertensive heart disease with heart failure; E78.5 Hyperlipidemia, unspecified; I73.9 Peripheral vascular disease, unspecified; E78.00 Pure hypercholesterolemia, unspecified; I49.5 Sick sinus syndrome; I45.10 Unspecified right bundle-branch block; I47.1 Supraventricular tachycardia; I69.359 Hemiplegia and hemiparesis following cerebral infarction affecting unspecified side; Z98.890 Other specified postprocedural states; Z82.49 Family history of ischemic heart disease and other diseases of the circulatory system; Z79.51 Long term (current) use of inhaled steroids; Z79.899 Other long term (current) drug therapy; Z79.4 Long term (current) use of insulin; Z79.890 Hormone replacement therapy; Z79.82 Long term (current) use of aspirin; Z88.1 Allergy status to other antibiotic agents; Z91.048 Other nonmedicinal substance allergy status; Z88.8 Allergy status to other drugs, medicaments and biological substances; Z88.0 Allergy status to penicillin; Z88.2 Allergy status to sulfonamides
CPT/HCPCS: 33225; 33229; 71045; C1769 ×4; C1892; C1730; C1900; C2621; J2250; J1200; J2930; J0690 ×2; J2405; J2001; J3010; J0131; J2704; Q9967

== ENCOUNTER 2020-11-06 22:18 | Inpatient (IN) | payer MEDICARE, BC ==
--- NOTE | 2020-11-06 22:49 | ED ---
Back Pain HPI - General Chief Complaint: Back Pain/Injury Stated Complaint: back pain Time Seen by Provider: 11/06/20 22:34 Source: EMS, RN notes reviewed, old records reviewed Limitations: no limitations - History of Present Illness Initial Comments: This is a 1-year-old female DF for evaluation. Patient has severe back pain and inability to ambulate paged regarding left leg pain in her groin area worsen she moves left leg. Patient states is worse with ambulation, separable doing a twisting maneuver medication. Patient has never had severe such pain before. Patient comes in hours after initial onset of pain secondary to pain being persistent no recent traumas, no fevers or other complaints no loss of bowel or bladder she did have a bowel movement and urination today MD Complaint: back pain -: hour(s) Similar Symptoms Previously: Yes Place: home Radiation: none Severity: severe Severity scale (1-10): 10 Consistency: constant Improves With: none Worsens With: movement Context: while lifting, turning/twisting Associated Symptoms: denies other symptoms - Related Data Home Medications Medication Instructions Recorded Confirmed Aspirin 81 mg PO [id number]/04/15 11/06/20 Atorvastatin Calcium [Lipitor] 40 mg PO HS 05/04/15 11/06/20 Levothyroxine Sodium [Synthroid] 50 mcg PO DAILY 05/04/15 11/06/20 ALPRAZolam 1 mg PO BID PRN 08/23/16 11/06/20 Vit C/E/Zn/Coppr/Lutein/Zeaxan 1 cap PO BID 02/16/17 11/06/20 [Preservision Areds 2 Softgel] Cholecalciferol [Vitamin D3 (25 1,000 unit PO DAILY 01/29/19 11/06/20 Mcg = 1000 Iu)] Apixaban [Eliquis] 5 mg PO BID 08/17/19 11/06/20 Omeprazole [PriLOSEC] 40 mg PO DAILY 08/17/19 11/06/20 Pediatric Multivitamin No.30 1 tab PO DAILY 08/17/19 11/06/20 [Multivitamin Children's Gummies] Furosemide [Lasix] 40 mg PO DAILY 07/25/20 11/06/20 Glimepiride [Amaryl] 2 mg PO HS 07/25/20 11/06/20 Metoprolol Succinate [Toprol XL] 50 mg PO HS 07/25/20 11/06/20 Spironolactone [Aldactone] 25 mg PO DAILY 08/08/20 11/06/20 Fluticasone Propion/Salmeterol 1 puff INHALATION RT-BID 11/06/20 11/06/20 [Wixela 100-50 Inhub] Irbesartan [Avapro] 150 mg PO DAILY 11/06/20 11/06/20 Metoprolol Succinate [Toprol XL] 100 mg PO HS 11/06/20 11/06/20 Allergies Allergy/AdvReac Type Severity Reaction Status Date / Time doxycycline [From Vibramycin] Allergy Unknown Rash/Hives Verified 11/06/20 23:36 MITALI Inhibitors Allergy Unknown Verified 11/06/20 23:36 colchicine Allergy Rash/Hives Verified 11/06/20 23:36 erythromycin base Allergy Rash/Hives Verified 11/06/20 23:36 Iodinated Contrast Media Allergy Unknown Verified 11/06/20 23:36 iodine Allergy Unknown Verified 11/06/20 23:36 lisinopril Allergy Unknown Verified 11/06/20 23:36 sulfamethoxazole Allergy Rash/Hives Verified 11/06/20 23:36 [From Bactrim] trimethoprim [From Bactrim] Allergy Rash/Hives Verified 11/06/20 23:36 moexipril HCl [From Univasc] AdvReac Cough, Verified 11/06/20 23:36 choking black olives Allergy Anaphylaxis Uncoded 11/06/20 23:36 Review of Systems ROS Statement: Those systems with pertinent positive or pertinent negative responses have been documented in the HPI. ROS Other: All systems not noted in ROS Statement are negative. Past Medical History Past Medical History: Atrial Fibrillation, Coronary Artery Disease (CAD), CVA/TIA, Diabetes Mellitus, Eye Disorder, Hyperlipidemia, Hypertension, Liver Disease, Osteoarthritis (OA), Thyroid Disorder Additional Past Medical History / Comment(s): Pt recently admitted to [facility] on 07/26/20 with possible acute on chronic flareup pericarditis/effusion. 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, NIDDM type II, palpitations, SSS with pacemaker, hypothyroid, hepatitis in 1950s-pt does not know which type, hiatal hernia, bilateral tinnitis, bilateral macular degeneration with injections, arthritis in multiple joints, chronic low back pain with radiation down bilateral legs, vertigo, past epistaxis History of Any Multi-Drug Resistant Organisms: None Reported Past Surgical History: Ablation, Cardiac Ablation, Heart Catheterization, Hysterectomy, Joint Replacement, Orthopedic Surgery, Pacemaker Additional Past Surgical History / Comment(s): 06/23/17 pacemaker insertion and loop recorder removed, bilateral knee scopes/bilateral total knee arthroplasties, EGD, colonoscopy, bilaetral cataract removals, eye injections for macular. Past Anesthesia/Blood Transfusion Reactions: Motion Sickness, Postoperative Nausea & Vomiting (PONV) Type of Cardiac Device: Permanent Pacemaker Device Placement Date:: 06/2018 Past Psychological History: Anxiety Smoking Status: Never smoker - Past Family History Father Family Medical History: Congestive Heart Failure (CHF) Additional Family Medical History / Comment(s): Father of CHF at the age of 89yrs. Mother Family Medical History: CVA/TIA, Osteoarthritis (OA) Additional Family Medical History / Comment(s): Mother of a CVA at the age of 89yrs. Brother(s) Family Medical History: Cancer Additional Family Medical History / Comment(s): lymphoma Sister(s) Family Medical History: Cancer Additional Family Medical History / Comment(s): melanoma General Exam Limitations: no limitations General appearance: alert, in no apparent distress Head exam: Present: atraumatic, normocephalic, normal inspection Eye exam: Present: normal appearance, PERRL, EOMI. Absent: scleral icterus, conjunctival injection, periorbital swelling ENT exam: Present: normal exam, mucous membranes moist Neck exam: Present: normal inspection. Absent: tenderness, meningismus, lymphadenopathy Respiratory exam: Present: normal lung sounds bilaterally. Absent: respiratory distress, wheezes, rales, rhonchi, stridor Cardiovascular Exam: Present: regular rate, normal rhythm, normal heart sounds. Absent: systolic murmur, diastolic murmur, rubs, gallop, clicks GI/Abdominal exam: Present: soft, normal bowel sounds. Absent: distended, tenderness, guarding, rebound, rigid Extremities exam: Present: normal inspection, full ROM, normal capillary refill. Absent: tenderness, pedal edema, joint swelling, calf tenderness Back exam: Present: normal inspection Neurological exam: Present: alert, oriented X3, CN II-XII intact Psychiatric exam: Present: normal affect, normal mood Skin exam: Present: warm, dry, intact, normal color. Absent: rash Course Vital Signs 11/06/20 11/07/20 22:20 00:29 Temperature 98.6 F Pulse Rate 71 58 L Respiratory 20 20 Rate Blood Pressure 126/82 109/57 O2 Sat by Pulse 97 95 Oximetry - Reevaluation(s) Reevaluation #1: 11/07/20 01:10 Medical record is reviewed Reevaluation #2: 11/07/20 01:10 Patient is unable to ambulate Reevaluation #3: 11/07/20 01:10 pain is improved Medical Decision Making - Medical Decision Making 80 female DF for evaluation patient is unable to ambulate secondary to new onset back pain. Patient does have CT of the abdomen pelvis which is negative for any acute process. Patient is nonneurologic able to move legs which is has severe pain especially with left leg movement both passive and active - Radiology Data Radiology results: report reviewed (CT of the abdomen and pelvis is negative for acute disease), image reviewed Disposition Clinical Impression: Intractable pain, Strain of lumbar region Disposition: ADMITTED IP TO THIS [facility] Condition: Fair Is patient prescribed a controlled substance at d/c from ED?: No Referrals: Mark Macias DO [Primary Care Provider] - 1-2 days
[2020-11-06] MEDS ORDERED: ACETAMINOPHEN TAB 500 MG TAB PO STA (22:51)
[2020-11-06] MEDS ORDERED: IBUPROFEN 800 MG TAB PO STA (22:51)
[2020-11-06] MEDS ORDERED: HYDROmorphone 1 MG/ML 1 ML SYRINGE IM STA (22:51)
--- NOTE | 2020-11-07 00:22 | CT ---
EXAMINATION TYPE: CT abdomen pelvis wo con DATE OF EXAM: 11/07/2020 COMPARISON: None HISTORY: PAIN IN GROIN AND HIPS. CT DLP: 2553 mGycm Automated exposure control for dose reduction was used. Images obtained from the diaphragm to the floor the pelvis without contrast. There is some mild scarring and subsegmental atelectasis at the lung bases. There is no pleural effus ion. Heart is enlarged. There is small hiatal hernia. There is small pericardial effusion. Liver shows no focal defect. Gallbladder is intact. Bile ducts are not dilated. Spleen and stomach ar e intact. There is no pancreatic mass. There is no adrenal mass. Kidneys show normal size and contour. There is no hydronephrosis. Ureters a re not dilated. There is no retroperitoneal adenopathy. Bladder distends smoothly. There is no inguin al hernia. There is no free fluid in the pelvis. There are multiple sigmoid diverticula. I see no sign of diverticulitis. Appendix is not definitely s een. There is no sign of thickened appendix. There is no mesenteric edema. There is no ascites or griselda e air. There is no evidence of a bowel obstruction. There are spondylotic changes in the thoracic and lumbar spine. The bony pelvis is intact. There are some osteoarthritic changes in the right hip joint. IMPRESSION: Colonic diverticulosis without diverticulitis. I do not see a cause for groin pain. Mild osteoarthrit is.
[2020-11-07] MEDS ORDERED: MORPHINE SULFATE 4 MG/ML SYRINGE IV STA (01:07)
[2020-11-07] MEDS ORDERED: SODIUM CHLORIDE 0.9% 1,000 ML IV STA ×2 (01:07)
[2020-11-07] MEDS ORDERED: MORPHINE SULFATE 4 MG/ML SYRINGE IVP PRN (01:08)
[2020-11-07] MEDS ORDERED: KETOROLAC 15 MG/ML 1 ML VIAL IVP STA (01:08)
[2020-11-07] MEDS ORDERED: DIAZEPAM 5 MG/ML 2 ML INJ IVP PRN (01:09)
[2020-11-07 01:42] LABS: Basophils # (A) 0.1 k/uL (0-0.2); Basophils % (A) 0 %; Eosinophils # (A) 0.1 k/uL (0-0.7); Eosinophils % (A) 1 %; HCT 34.2 % (34.0-46.0); HGB 11.5 gm/dL (11.4-16.0); Lymphocytes # (A) 2.4 k/uL (1.0-4.8); Lymphocytes % (A) 22 %; MCH 29.3 pg (25.0-35.0); MCHC 33.5 g/dL (31.0-37.0); MCV 87.4 fL (80.0-100.0); Mean Platelet Volume 8.6; Monocytes # (A) 0.6 k/uL (0-1.0); Monocytes % (A) 5 %; Neutrophils # (A) 7.5 k/uL (1.3-7.7); Neutrophils % (A) 70 %; Platelet Count 166 k/uL (150-450); RBC 3.92 m/uL (3.80-5.40); RDW 15.9 % (11.5-15.5); WBC 10.8 k/uL (3.8-10.6)
[2020-11-07 01:53] LABS: Albumin 3.5 g/dL (3.5-5.0); Calcium 8.9 mg/dL (8.4-10.2); Magnesium 2.1 mg/dL (1.6-2.3); Phosphorus 4.1 mg/dL (2.5-4.5); Potassium 4.2 mmol/L (3.5-5.1); Total Bilirubin 0.4 mg/dL (0.2-1.3); Total Protein 6.3 g/dL (6.3-8.2)
[2020-11-07 04:32] LABS: Appearance,Urine Cloudy (Clear); Bacteria,Urine Occasional /hpf; Bilirubin,Urine Negative (Negative); Blood,Urine Negative (Negative); Color,Urine Yellow; Glucose,Urine (UA) Negative (Negative); Hyaline Casts,Urine 14 /lpf (0-2); Ketones,Urine Negative (Negative); Leukocyte Esterase,Urine Large (Negative); Mucus,Urine Rare /hpf; Nitrite,Urine Negative (Negative); PH, Urine 5.5 (5.0-8.0); Protein,Urine Negative (Negative); RBC,Urine 111 /hpf (0-5); Specific Gravity,Urine 1.014 (1.001-1.035); Squamous Epithelial Cell,Urine 1 /hpf (0-4); Urobilinogen,Urine <2.0 mg/dL (<2.0); WBC,Urine 47 /hpf (0-5)
[2020-11-07] MEDS ORDERED: ALPRAZolam 1 MG TAB PO PRN (06:54)
[2020-11-07] MEDS ORDERED: LEVOTHYROXINE 50 MCG TAB PO SCH (07:00)
[2020-11-07] MEDS ORDERED: ONDANSETRON 4 MG/2 ML VIAL IVP PRN (07:45)
[2020-11-07 08:04] VITALS: PULSE 60; TEMP 97.3
[2020-11-07] MEDS ORDERED: SPIRONOLACTONE 25 MG TAB PO SCH (09:00)
[2020-11-07] MEDS ORDERED: APIXABAN 5 MG TAB PO SCH (09:00)
[2020-11-07] MEDS ORDERED: LOSARTAN 50 MG TAB PO SCH (09:00)
[2020-11-07] MEDS ORDERED: FUROSEMIDE 40 MG TAB PO SCH (09:00)
[2020-11-07] MEDS ORDERED: CHOLECALCIFEROL 1,000 UNIT TAB PO SCH (09:00)
[2020-11-07] MEDS ORDERED: PANTOPRAZOLE 40 MG TABLET PO SCH (09:00)
--- NOTE | 2020-11-07 11:13 | P.HPIM ---
History of Present Illness H&P Date: 11/07/20 Chief Complaint: Failure to thrive generalized weakness and frequent falls This is a 80-year-old female patient sent to emergency department for evaluation of placement, patient has been having back pain and inability to ambulate, he is seeking extended care facility placement, rehab PT OT has been consulted, social media strategist has been consulted, patient does have a prior history of dyslipidemia hypothyroidism, chronic atrial fibrillation, coronary artery disease history of stroke, hypertension hypertensive cardiovascular disease, type 2 diabetes mellitus she has a permanent pacemaker, also has a history of ablation in the past, on presentation patient afebrile with stable hemodynamics and blood pressure, computed tomography scan of the abdominal and pelvis no significant pathology has been noted, patient is able to move both legs with passive and active movements pain appears to be a sprain related Review of Systems All systems: negative Past Medical History Past Medical History: Atrial Fibrillation, Coronary Artery Disease (CAD), CVA/TIA, Diabetes Mellitus, Eye Disorder, Hyperlipidemia, Hypertension, Liver Disease, Osteoarthritis (OA), Thyroid Disorder Additional Past Medical History / Comment(s): Pt recently admitted to [facility] on 07/26/20 with possible acute on chronic flareup pericarditis/effusion. 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, NIDDM type II, palpitations, SSS with pacemaker, hypothyroid, hepatitis in 1950s-pt does not know which type, hiatal hernia, bilateral tinnitis, bilateral macular degeneration with injections, arthritis in multiple joints, chronic low back pain with radiation down bilateral legs, vertigo, past epistaxis History of Any Multi-Drug Resistant Organisms: None Reported Past Surgical History: Ablation, Cardiac Ablation, Heart Catheterization, Hysterectomy, Joint Replacement, Orthopedic Surgery, Pacemaker Additional Past Surgical History / Comment(s): 06/23/17 pacemaker insertion and loop recorder removed, bilateral knee scopes/bilateral total knee arthroplasties, EGD, colonoscopy, bilaetral cataract removals, eye injections for macular. Past Anesthesia/Blood Transfusion Reactions: Motion Sickness, Postoperative Nausea & Vomiting (PONV) Type of Cardiac Device: Permanent Pacemaker Device Placement Date:: 06/2018 Past Psychological History: Anxiety Additional Psychological History / Comment(s): Pt resides with her spouse. She uses a cane/walker to ambulate. She no longer drives, her spouse drives. She manages her own medications. Smoking Status: Never smoker Past Alcohol Use History: None Reported Past Drug Use History: None Reported - Past Family History Father Family Medical History: Congestive Heart Failure (CHF) Additional Family Medical History / Comment(s): Father of CHF at the age of 89yrs. Mother Family Medical History: CVA/TIA, Osteoarthritis (OA) Additional Family Medical History / Comment(s): Mother of a CVA at the age of 89yrs. Brother(s) Family Medical History: Cancer Additional Family Medical History / Comment(s): lymphoma Sister(s) Family Medical History: Cancer Additional Family Medical History / Comment(s): melanoma Medications and Allergies Home Medications Medication Instructions Recorded Confirmed Type Aspirin 81 mg PO MOWEFR05/04/15 11/06/20 History Atorvastatin Calcium [Lipitor] 40 mg PO HS 05/04/15 11/06/20 History Levothyroxine Sodium [Synthroid] 50 mcg PO DAILY 05/04/15 11/06/20 History ALPRAZolam 1 mg PO BID PRN 08/23/16 11/06/20 History Vit C/E/Zn/Coppr/Lutein/Zeaxan 1 cap PO BID 02/16/17 11/06/20 History [Preservision Areds 2 Softgel] Cholecalciferol [Vitamin D3 (25 1,000 unit PO DAILY 01/29/19 11/06/20 History Mcg = 1000 Iu)] Apixaban [Eliquis] 5 mg PO BID 08/17/19 11/06/20 History Omeprazole [PriLOSEC] 40 mg PO DAILY 08/17/19 11/06/20 History Pediatric Multivitamin No.30 1 tab PO DAILY 08/17/19 11/06/20 History [Multivitamin Children's Gummies] Furosemide [Lasix] 40 mg PO DAILY 07/25/20 11/06/20 History Glimepiride [Amaryl] 2 mg PO HS 07/25/20 11/06/20 History Metoprolol Succinate [Toprol XL] 50 mg PO HS 07/25/20 11/06/20 History Spironolactone [Aldactone] 25 mg PO DAILY 08/08/20 11/06/20 History Fluticasone Propion/Salmeterol 1 puff INHALATION RT-BID 11/06/20 11/06/20 History [Wixela 100-50 Inhub] Irbesartan [Avapro] 150 mg PO DAILY 11/06/20 11/06/20 History Metoprolol Succinate [Toprol XL] 100 mg PO HS 11/06/20 11/06/20 History Allergies Allergy/AdvReac Type Severity Reaction Status Date / Time doxycycline [From Vibramycin] Allergy Unknown Rash/Hives Verified 11/06/20 23:36 MITALI Inhibitors Allergy Unknown Verified 11/06/20 23:36 colchicine Allergy Rash/Hives Verified 11/06/20 23:36 erythromycin base Allergy Rash/Hives Verified 11/06/20 23:36 Iodinated Contrast Media Allergy Unknown Verified 11/06/20 23:36 iodine Allergy Unknown Verified 11/06/20 23:36 lisinopril Allergy Unknown Verified 11/06/20 23:36 sulfamethoxazole Allergy Rash/Hives Verified 11/06/20 23:36 [From Bactrim] trimethoprim [From Bactrim] Allergy Rash/Hives Verified 11/06/20 23:36 moexipril HCl [From Univasc] AdvReac Cough, Verified 11/06/20 23:36 choking black olives Allergy Anaphylaxis Uncoded 11/06/20 23:36 Physical Exam Vitals: Vital Signs Temp Pulse Pulse Resp BP BP Pulse Ox 11/07/20 06:49 97.3 F L 60 16 119/69 96 11/07/20 04:19 59 L 20 11/07/20 02:26 97.5 F L 59 L 20 126/65 94 L 11/07/20 01:37 60 20 125/58 95 11/07/20 00:29 58 L 20 109/57 95 11/06/20 22:20 98.6 F 71 20 126/82 97 Intake and Output 11/06/20 11/07/20 11/07/20 22:59 06:59 14:59 Intake Total 490 Balance 490 Intake: IV 390 Sodium Chloride 0.9% 1, 390 000 ml @ 130 mls/hr IV . Q7H42M STA Rx#:[id number] Oral 100 Other: Voiding Method Bedpan Bedpan # Voids 1 Weight 85.729 kg 85.729 kg - Constitutional General appearance: average body habitus, disheveled - EENT Eyes: EOMI, PERRLA Ears: bilateral: normal - Neck Carotids: bilateral: upstroke normal Thyroid: bilateral: normal size - Respiratory Respiratory: bilateral: CTA - Gastrointestinal General gastrointestinal: decreased bowel sounds, normal bowel sounds, soft - Neurologic Neurologic: CNII-XII intact - Musculoskeletal Musculoskeletal: gait normal, generalized weakness, strength equal bilaterally - Psychiatric Psychiatric: A&O x's 3, appropriate affect, intact judgment & insight Results CBC & Chem 7: 11/07/20 01:25 11/07/20 01:25 Labs: Abnormal Lab Results - Last 24 Hours (Table) 11/07/20 11/07/20 11/07/20 Range/Units 01:25 01:25 04:13 WBC 10.8 H (3.8-10.6) k/uL RDW 15.9 H (11.5-15.5) % BUN 26 H (7-17) mg/dL Creatinine 1.09 H (0.52-1.04) mg/dL Glucose 108 H (74-99) mg/dL Urine Appearance Cloudy H (Clear) Ur Leukocyte Esterase Large H (Negative) Urine RBC 111 H (0-5) /hpf Urine WBC 47 H (0-5) /hpf Urine Bacteria Occasional H (None) /hpf Hyaline Casts 14 H (0-2) /lpf Urine Mucus Rare H (None) /hpf CT scan - abdomen: report reviewed Thrombosis Risk Factor Assmnt - Choose All That Apply Any of the Below Risk Factors Present?: Yes Each Factor Represents 1 point: Obesity (BMI >25), Swollen legs (current) Each Risk Factor Represents 3 Points: Age 75 years or older Thrombosis Risk Factor Assessment Total Risk Factor Score: 5 Thrombosis Risk Factor Assessment Level: High Risk Assessment and Plan Assessment: Low back pain appears to be a sprain related Multiple complex medical problems including chronic atrial fibrillation History of stroke Hypertension hypertensive cardiovascular disease Dyslipidemia Progressive weakness and inability to take care of herself with frequent fall Plan: Continue supportive care PT OT has been consulted social media strategist has been co nsulted continue pain management, observe clinical course closely patient likely to be placed in extended care facility Time with Patient: Greater than 30
--- NOTE | 2020-11-07 13:14 | P.DS ---
Providers Date of admission: 11/07/20 11:26 Expected date of discharge: 11/07/20 Attending physician: Redd Cortes Primary care physician: [facility] Course: 11/07/2020, patient seen eval reexamined pain is significantly improved, social service coordinator able to get a spot in ECF, patient will be discharged Chief Complaint: Failure to thrive generalized weakness and frequent falls This is a 80-year-old female patient sent to emergency department for evaluation of placement, patient has been having back pain and inability to ambulate, he is seeking extended care facility placement, rehab PT OT has been consulted, social service coordinator has been consulted, patient does have a prior history of dyslipidemia hypothyroidism, chronic atrial fibrillation, coronary artery disease history of stroke, hypertension hypertensive cardiovascular disease, type 2 diabetes mellitus she has a permanent pacemaker, also has a history of ablation in the past, on presentation patient afebrile with stable hemodynamics and blood pre ssure, computed tomography scan of the abdominal and pelvis no significant pathology has been noted, patient is able to move both legs with passive and active movements pain appears to be a sprain related Temp Pulse Pulse Resp BP BP Pulse Ox 11/07/20 06:49 97.3 F L 60 16 119/69 96 11/07/20 04:19 59 L 20 11/07/20 02:26 97.5 F L 59 L 20 126/65 94 L 11/07/20 01:37 60 20 125/58 95 11/07/20 00:29 58 L 20 109/57 95 11/06/20 22:20 98.6 F 71 20 126/82 97 Intake and Output 11/06/20 11/07/20 11/07/20 22:59 06:59 14:59 Intake Total 490 Balance 490 Intake: IV 390 Sodium Chloride 0.9% 1, 390 000 ml @ 130 mls/hr IV . Q7H42M STA Rx#:[id number] Oral 100 Other: Voiding Method Bedpan Bedpan # Voids 1 Weight 85.729 kg 85.729 kg - Constitutional General appearance: average body habitus, disheveled - EENT Eyes: EOMI, PERRLA Ears: bilateral: normal - Neck Carotids: bilateral: upstroke normal Thyroid: bilateral: normal size - Respiratory Respiratory: bilateral: CTA - Gastrointestinal General gastrointestinal: decreased bowel sounds, normal bowel sounds, soft - Neurologic Neurologic: CNII-XII intact - Musculoskeletal Musculoskeletal: gait normal, generalized weakness, strength equal bilaterally - Psychiatric Psychiatric: A&O x's 3, appropriate affect, intact judgment & insight CBC & Chem 7: 11/07/20 01:25 11/07/20 01:25 Labs: Abnormal Lab Results - Last 24 Hours (Table) 11/07/20 11/07/20 11/07/20 Range/Units 01:25 01:25 04:13 WBC 10.8 H (3.8-10.6) k/uL RDW 15.9 H (11.5-15.5) % BUN 26 H (7-17) mg/dL Creatinine 1.09 H (0.52-1.04) mg/dL Glucose 108 H (74-99) mg/dL Urine Appearance Cloudy H (Clear) Ur Leukocyte Esterase Large H (Negative) Urine RBC 111 H (0-5) /hpf Urine WBC 47 H (0-5) /hpf Urine Bacteria Occasional H (None) /hpf Hyaline Casts 14 H (0-2) /lpf Urine Mucus Rare H (None) /hpf CT scan - abdomen: report reviewed Assessment: Low back pain appears to be a sprain related Multiple complex medical problems including chronic atrial fibrillation History of stroke Hypertension hypertensive cardiovascular disease Dyslipidemia Progressive weakness and inability to take care of herself with frequent fall Patient Condition at Discharge: Fair Plan - Discharge Summary New Discharge Prescriptions: Continue Atorvastatin Calcium [Lipitor] 40 mg PO HS Aspirin 81 mg PO [id number]@2000 Levothyroxine Sodium [Synthroid] 50 mcg PO DAILY ALPRAZolam 1 mg PO BID PRN PRN Reason: Anxiety Vit C/E/Zn/Coppr/Lutein/Zeaxan [Preservision Areds 2 Softgel] 1 cap PO BID Cholecalciferol [Vitamin D3 (25 Mcg = 1000 Iu)] 1,000 unit PO DAILY Apixaban [Eliquis] 5 mg PO BID Pediatric Multivitamin No.30 [Multivitamin Children's Gummies] 1 tab PO DAILY Omeprazole [PriLOSEC] 40 mg PO DAILY Furosemide [Lasix] 40 mg PO DAILY Glimepiride [Amaryl] 2 mg PO HS Metoprolol Succinate [Toprol XL] 50 mg PO HS Spironolactone [Aldactone] 25 mg PO DAILY Metoprolol Succinate [Toprol XL] 100 mg PO HS Irbesartan [Avapro] 150 mg PO DAILY Fluticasone Propion/Salmeterol [Wixela 100-50 Inhub] 1 puff INHALATION RT-BID Discharge Medication List Aspirin 81 mg PO [id number]@199905/04/15 [History] Atorvastatin Calcium [Lipitor] 40 mg PO HS 05/04/15 [History] Levothyroxine Sodium [Synthroid] 50 mcg PO DAILY 05/04/15 [History] ALPRAZolam 1 mg PO BID PRN 08/23/16 [History] Vit C/E/Zn/Coppr/Lutein/Zeaxan [Preservision Areds 2 Softgel] 1 cap PO BID 02/16/17 [History] Cholecalciferol [Vitamin D3 (25 Mcg = 1000 Iu)] 1,000 unit PO DAILY 01/29/19 [History] Apixaban [Eliquis] 5 mg PO BID 08/17/19 [History] Omeprazole [PriLOSEC] 40 mg PO DAILY 08/17/19 [History] Pediatric Multivitamin No.30 [Multivitamin Children's Gummies] 1 tab PO DAILY 08/17/19 [History] Furosemide [Lasix] 40 mg PO DAILY 07/25/20 [History] Glimepiride [Amaryl] 2 mg PO HS 07/25/20 [History] Metoprolol Succinate [Toprol XL] 50 mg PO HS 07/25/20 [History] Spironolactone [Aldactone] 25 mg PO DAILY 08/08/20 [History] Fluticasone Propion/Salmeterol [Wixela 100-50 Inhub] 1 puff INHALATION RT-BID 11/06/20 [History] Irbesartan [Avapro] 150 mg PO DAILY 11/06/20 [History] Metoprolol Succinate [Toprol XL] 100 mg PO HS 11/06/20 [History] Follow up Appointment(s)/Referral(s): Mark Macias DO [Primary Care Provider] - 1-2 days Discharge Disposition: TRANSFER TO SNF/ECF
[2020-11-07 15:18] VITALS: BP 119/62; RESP 17
[2020-11-07] MEDS ORDERED: GLIMEPIRIDE 2 MG TAB PO SCH (21:00)
[2020-11-07] MEDS ORDERED: METOPROLOL SUCCINATE (ER) 50 MG TAB.ER.24H PO SCH (21:00)
[2020-11-07] MEDS ORDERED: METOPROLOL SUCCINATE (ER) 100 MG TAB.ER.24H PO SCH (21:00)
[2020-11-07] MEDS ORDERED: ATORVASTATIN 40 MG TAB PO SCH (21:00)
[2020-11-08] MEDS ORDERED: ASPIRIN 81 MG PO SCH (20:00)
== END 2020-11-07 16:31 | DRG 563 ==
LOC: EC 22:18 → 5NMEDONC 11-07 01:07 → OBSVTOIN 11-07 11:26
PROVIDERS: ADMIT Internal Medicine Sleep Medicine; ATTEND Internal Medicine Sleep Medicine
DX: S39.012A Strain of muscle, fascia and tendon of lower back, initial encounter (principal); I48.20 Chronic atrial fibrillation, unspecified; E78.5 Hyperlipidemia, unspecified; E11.9 Type 2 diabetes mellitus without complications; E03.9 Hypothyroidism, unspecified; F41.9 Anxiety disorder, unspecified; I11.9 Hypertensive heart disease without heart failure; I25.10 Atherosclerotic heart disease of native coronary artery without angina pectoris; Z96.653 Presence of artificial knee joint, bilateral; R62.7 Adult failure to thrive; Z20.828 Contact with and (suspected) exposure to other viral communicable diseases; R29.6 Repeated falls; Z79.01 Long term (current) use of anticoagulants; Z79.84 Long term (current) use of oral hypoglycemic drugs; Z79.890 Hormone replacement therapy; Z79.899 Other long term (current) drug therapy; Z80.7 Family history of other malignant neoplasms of lymphoid, hematopoietic and related tissues; Z80.8 Family history of malignant neoplasm of other organs or systems; Z82.3 Family history of stroke; Z82.49 Family history of ischemic heart disease and other diseases of the circulatory system; Z90.710 Acquired absence of both cervix and uterus; Z95.0 Presence of cardiac pacemaker; Z88.1 Allergy status to other antibiotic agents; Z91.041 Radiographic dye allergy status; Z88.2 Allergy status to sulfonamides; Z88.8 Allergy status to other drugs, medicaments and biological substances; Z91.09 Other allergy status, other than to drugs and biological substances; Z98.890 Other specified postprocedural states; Z98.42 Cataract extraction status, left eye; Z98.41 Cataract extraction status, right eye; Z82.61 Family history of arthritis
CPT/HCPCS: 36415; 74176; 80053; 81001; 82550; 83735; 84100; 85025; 87086; 87635; 93005; 96361; 96372; 96374; 96375; 99285

== ENCOUNTER → 2020-11-28 | Outpatient (CLI) | payer MEDICARE, BC ==
[2020-11-28 14:36] LABS: Chol/HDL Ratio 3.28; LDL Cholesterol,Calculated 66.8 mg/dL (0.0-131.0); VLDL Calculation 24.2 mg/dL (5.00-40.00)
== END | disposition home or self-care (01) ==
LOC: LABWHC1 08:07
PROVIDERS: ATTEND Family Medicine
DX: I63.9 Cerebral infarction, unspecified (principal)
CPT/HCPCS: 36415; 80061

== ENCOUNTER → 2020-12-08 | Outpatient (CLI) | payer MEDICARE, BC ==
--- NOTE | 2020-12-08 11:30 | BD ---
EXAMINATION TYPE: Axial Bone Density DATE OF EXAM: 12/08/2020 COMPARISON: NONE CLINICAL HISTORY: Height: 5 FT 2 IN Weight: 190 FRAX RISK QUESTIONS: Alcohol (3 or more units per day): NO Family History (Parent hip fracture): NO Glucocorticoids (More than 3mos): NO (Ex: prednisone, prednisolone, methylprednisolone, dexamethasone, and hydrocortisone). History of Fracture in Adulthood: NO Secondary Osteoporosis: 1. Type 1 Diabetes: NO 2. Hyperthyroidism: NO 3. Menopause before 45: NO 4. Malnutrition: NO 5. Chronic liver disease: NO Rheumatoid Arthritis: NO Current Tobacco Use: NO RISK FACTORS HISTORY OF: Family History of Osteoporosis: NO Active: NO Diet low in dairy products/other sources of calcium: NO Postmenopausal woman: TOTAL HYST AGE 56 Take estrogen and/or progesterone medications: NONE Lost more than 2 inches in height since high school: YES Frequent falls: USES A WALKER UNSTEADY HAD A STROKE 2011 MEDICATIONS: Thyroid Medications: YES Which medication: LEVOTHYROXINE How Long: OVER 25 YEARS Additional Medications: LEVOTHYROXINE, ADVAIR, OMEPRAZOLE, FUROSEMIDE, SPIROLACTONE, AREDS, ELIQUIS, IRBESARTAN, METOPROLOL, GLIMIPIRIDE, ATORVSTATIN, BABY ASPIRIN, XANAX, ANTIVERT, VENTOLIN, Additional History: EXAM MEASUREMENTS: Bone mineral densitometry was performed using the Expanite System. Bone mineral density as measured about the Lumbar spine is: ----- L1-L4(G/cm2): 1.368 T Score Values are as follows: ----- L2: 0.4 ----- L3: 1.9 ----- L4: 2.5 ----- L1-L4: 1.6 Bone mineral density has: DECREASED -3.9 % since study of: 2013 Bone mineral density about the R hip (g/cm2): 0.999 Bone mineral density about the L hip (g/cm2): 0.894 T Score values are as follows: -----R Neck: -0.3 -----L Neck: -1.0 -----R Total: 0.6 -----L Total: 0.0 Bone mineral density has: DECREASED -10.2 % since study of: 2013 IMPRESSION: No evidence for osteoporosis or osteopenia. NOTE: T-SCORE=SD OF THE YOUNG ADULT MEAN.
== END | disposition home or self-care (01) ==
LOC: RADBDWWP 09:18
PROVIDERS: ATTEND Family Medicine
DX: M85.80 Other specified disorders of bone density and structure, unspecified site (principal)
CPT/HCPCS: 77080

== ENCOUNTER → 2021-03-22 | Outpatient (CLI) | payer MEDICARE, BC ==
[2021-03-22 14:57] LABS: Basophils # (A) 0.05 X 10*3/uL (0.00-0.10); Basophils % (A) 0.6 %; Eosinophils # (A) 0.11 X 10*3/uL (0.04-0.35); Eosinophils % (A) 1.2 %; HCT 40.1 % (37.2-46.3); HGB 12.3 g/dL (12.0-15.0); Lymphocytes # (A) 2.31 X 10*3/uL (0.90-5.00); Lymphocytes % (A) 25.6 %; MCH 27.8 pg (27.0-32.0); MCHC 30.7 g/dL (32.0-37.0); MCV 90.7 fL (80.0-97.0); Mean Platelet Volume 11.4 fL (9.5-12.2); Monocytes # (A) 0.53 X 10*3/uL (0.20-1.00); Monocytes % (A) 5.9 %; Neutrophils % (A) 66.4 %; Platelet Count 228 X 10*3/uL (140-440); RBC 4.42 X 10*6/uL (4.10-5.20); RDW 15.9 % (11.5-14.5); WBC 9.03 X 10*3/uL (4.50-10.00)
[2021-03-22 19:43] LABS: African American GFR (CKD) 54.1 (60.0-200.0); Albumin 4.3 g/dL (3.80-4.90); Albumin/Globulin Ratio 1.72 (1.60-3.17); Anion Gap 9.2 mmol/L (4.00-12.00); BUN/Creat Ratio 23.64 Ratio (12.00-20.00); Calcium 8.9 mg/dL (8.7-10.3); Carbon Dioxide 26.8 mmol/L (21.6-31.8); Chol/HDL Ratio 3.32; Globulin 2.5 g/dL (1.6-3.3); Non-African American GFR(CKD) 46.7 (60.0-200.0); Potassium 4.3 mmol/L (3.5-5.5); Total Bilirubin 0.6 mg/dL (0.3-1.2); Total Protein 6.8 g/dL (6.2-8.2)
== END | disposition home or self-care (01) ==
LOC: LABWHC1 08:12
PROVIDERS: ATTEND Internal Medicine Endocrinology, Diabetes & Metabolism
DX: E11.8 Type 2 diabetes mellitus with unspecified complications (principal)
CPT/HCPCS: 36415; 80053; 80061; 83036; 84443; 85025

== ENCOUNTER → 2021-05-04 | Outpatient (CLI) | payer MEDICARE, BC ==
--- NOTE | 2021-05-05 07:35 | CT ---
EXAMINATION TYPE: CT brain wo con DATE OF EXAM: 05/04/2021 COMPARISON: 02/16/2017 HISTORY: weakness CT DLP: 978.[address] of the brain was performed. The ventricles, basal cisterns and sulci overlying the cerebral convexities demonstrate mild enlargem ent. Remote insult high right frontal lobe. There is no evidence for intracranial hemorrhage or sulcal effacement. There is decreased attenuation about the periventricular white matter and deep white matter of both c erebral hemispheres, compatible with chronic small vessel ischemia. Differential diagnosis does inclu de demyelination. No mass effects are seen.No midline shift. Osseous calvarium is intact. If symptoms persist consider MRI. IMPRESSION: 1. Age related atrophic and chronic small vessel ischemic change without acute intracranial process s een at this time.
== END | disposition home or self-care (01) ==
LOC: RADCTMAIN 18:03
PROVIDERS: ATTEND Family Medicine
DX: I67.82 Cerebral ischemia (principal)
CPT/HCPCS: 36415; 70450; 82565; 84520

== ENCOUNTER → 2021-11-23 | Outpatient (CLI) | payer MEDICARE, BC ==
--- NOTE | 2021-11-24 07:43 | US ---
EXAMINATION TYPE: US kidneys/renal and bladder DATE OF EXAM: 11/23/2021 COMPARISON: NONE CLINICAL HISTORY: R94.4 abnormal results of kidney function studies. EXAM MEASUREMENTS: Right Kidney: 9.2 x 4.1 x 4.5 cm Left Kidney: 8.6 x 3.6 x 3.9 cm Patient of large body habitus. Right Kidney: No hydronephrosis or masses seen Left Kidney: No hydronephrosis, cyst noted measuring 1.1 x 1.2 x 1.0cm Bladder: not fully distended, patient on 2 diaeretic meds and can't well hold her bladder. IMPRESSION: No hydronephrosis or nephrolithiasis. Bilateral renal cortical thinning greater on the left correlate for chronic medical renal disease. 1.2 cm hypoechoic left renal lesion too small to characterize but statistically most likely related to cyst. Correlate clinically.
== END | disposition home or self-care (01) ==
LOC: RADUSWWP 16:10
PROVIDERS: ATTEND Family Medicine
DX: R94.4 Abnormal results of kidney function studies (principal)
CPT/HCPCS: 76770

== ENCOUNTER → 2021-11-30 | Outpatient (CLI) | payer MEDICARE, BC ==
[2021-12-01 01:08] LABS: African American GFR (CKD) 43.9 (60.0-200.0); Albumin 4.1 g/dL (3.8-4.9); Albumin/Globulin Ratio 1.28 (1.60-3.17); Anion Gap 12.9 mmol/L (10.00-18.00); BUN/Creat Ratio 18.46 Ratio (12.00-20.00); Calcium 9.4 mg/dL (8.7-10.3); Carbon Dioxide 24.1 mmol/L (20.0-27.5); Globulin 3.2 g/dL (1.6-3.3); Non-African American GFR(CKD) 37.9 (60.0-200.0); Potassium 3.9 mmol/L (3.5-5.5); Total Bilirubin 0.4 mg/dL (0.30-1.20); Total Protein 7.3 g/dL (6.2-8.2)
== END | disposition home or self-care (01) ==
LOC: LABWHC1 12:53
PROVIDERS: ATTEND Internal Medicine Endocrinology, Diabetes & Metabolism
DX: E11.65 Type 2 diabetes mellitus with hyperglycemia (principal)
CPT/HCPCS: 36415; 80053

== ENCOUNTER → 2022-03-12 | Outpatient (CLI) | payer MEDICARE, BC ==
[2022-03-12 15:52] LABS: ALT 20 U/L (8-44); AST 22 U/L (13-35); African American GFR (CKD) 50.4 (60.0-200.0); Albumin 4.1 g/dL (3.8-4.9); Albumin/Globulin Ratio 1.45 (1.60-3.17); Alkaline Phosphatase 162 U/L (41-126); BUN/Creat Ratio 18.88 Ratio (12.00-20.00); Blood Urea Nitrogen 21.9 mg/dL (9.0-27.0); Calcium 9.1 mg/dL (8.7-10.3); Carbon Dioxide 25.6 mmol/L (20.0-27.5); Chloride 103 mmol/L (96-109); Chol/HDL Ratio 2.96 Ratio; Globulin 2.8 g/dL (1.6-3.3); Glucose 102 mg/dL (70-110); LDL Cholesterol,Calculated 57.9 mg/dL (0.0-131.0); Non-African American GFR(CKD) 43.5 (60.0-200.0); Potassium 4.4 mmol/L (3.5-5.5); Sodium 141 mmol/L (135-145); Total Protein 6.9 g/dL (6.2-8.2)
[2022-03-13 03:34] LABS: Microalbumin Creatinine Ratio <30 mg/g Creat (0-30)
== END | disposition home or self-care (01) ==
LOC: LABWHC1 08:47
PROVIDERS: ATTEND Internal Medicine Endocrinology, Diabetes & Metabolism
DX: E11.65 Type 2 diabetes mellitus with hyperglycemia (principal); E03.8 Other specified hypothyroidism
CPT/HCPCS: 36415; 80053; 80061; 82043; 82570; 83036; 84439; 84443; 84481

== ENCOUNTER 2022-07-24 08:09 | Emergency (ER) | payer MEDICARE, BC ==
[2022-07-24] MEDS ORDERED: ONDANSETRON 4 MG/2 ML VIAL IVP STA (09:04)
[2022-07-24] MEDS ORDERED: MORPHINE SULFATE 4 MG/ML SYRINGE IVP STA (09:04)
[2022-07-24] MEDS ORDERED: SODIUM CHLORIDE 0.9% 1,000 ML IV ONE (09:04)
[2022-07-24 09:08] LABS: Basophils # (A) 0.1 k/uL (0-0.2); Basophils % (A) 1 %; Eosinophils # (A) 0.2 k/uL (0-0.7); Eosinophils % (A) 1 %; HCT 38.7 % (34.0-46.0); HGB 12.4 gm/dL (11.4-16.0); Lymphocytes # (A) 1.9 k/uL (1.0-4.8); Lymphocytes % (A) 17 %; MCH 28.3 pg (25.0-35.0); MCV 88.6 fL (80.0-100.0); Mean Platelet Volume 8.2; Monocytes # (A) 0.6 k/uL (0-1.0); Monocytes % (A) 5 %; Neutrophils # (A) 8.6 k/uL (1.3-7.7); Neutrophils % (A) 76 %; Platelet Count 261 k/uL (150-450); RBC 4.37 m/uL (3.80-5.40); RDW 15.8 % (11.5-15.5); WBC 11.3 k/uL (3.8-10.6)
[2022-07-24 09:16] LABS: Albumin 4.1 g/dL (3.5-5.0); Calcium 9.2 mg/dL (8.4-10.2); Partial Thromboplastin Time 27.4 sec (22.0-30.0); Potassium 4.8 mmol/L (3.5-5.1); Prothrombin Time 10.6 sec (9.0-12.0); Total Bilirubin 0.7 mg/dL (0.2-1.3); Total Protein 6.9 g/dL (6.3-8.2)
[2022-07-24 09:36] LABS: Appearance,Urine Cloudy (Clear); Bacteria,Urine Rare /hpf; Bilirubin,Urine Negative (Negative); Blood,Urine Negative (Negative); Color,Urine Yellow; Glucose,Urine (UA) Negative (Negative); Hyaline Casts,Urine 1 /lpf (0-2); Ketones,Urine Negative (Negative); Leukocyte Esterase,Urine Negative (Negative); Mucus,Urine Occasional /hpf; Nitrite,Urine Negative (Negative); PH, Urine 5.5 (5.0-8.0); Protein,Urine Trace (Negative); RBC,Urine 8 /hpf (0-5); Specific Gravity,Urine 1.017 (1.001-1.035); Squamous Epithelial Cell,Urine 5 /hpf (0-4); Urobilinogen,Urine <2.0 mg/dL (<2.0); WBC,Urine 3 /hpf (0-5)
--- NOTE | 2022-07-24 09:44 | ED ---
Abdominal Pain HPI - General Chief Complaint: Abdominal Pain Stated Complaint: abd pain, diarrhea Time Seen by Provider: 07/24/22 08:20 Source: patient Mode of arrival: wheelchair Limitations: no limitations - History of Present Illness Initial Comments: 81-year-old female with past history of diverticulosis, A. fib, hypertension, hyperlipidemia who presents to emergency room in with abdominal cramping, left lower quadrant pain and diarrhea. States the symptoms have been going on for the past 3 days. Reports to up to 10 episodes of diarrhea daily. States it's watery in consistency. No black or bloody stools. Also has significant lower abdominal cramping. Took some Tylenol without relief. Denies any fevers. Does report a history of diverticulosis without diverticulitis. Admits to nausea with vomiting. No chest pain. No lower extremity numbness or tingling. No other alleviating, court orderly modifying factors - Related Data Home Medications Medication Instructions Recorded Confirmed Aspirin 81 mg PO [id number] 07/24/22 Atorvastatin Calcium [Lipitor] 40 mg PO 05/04/15 07/24/22 Levothyroxine Sodium [Synthroid] 50 mcg PO DAILY 05/04/15 07/24/22 ALPRAZolam 1 mg PO BID PRN 08/23/16 07/24/22 Vit C/E/Zn/Coppr/Lutein/Zeaxan 1 cap PO BID 02/16/17 07/24/22 [Preservision Areds 2 Softgel] Apixaban [Eliquis] 5 mg PO BID 08/17/19 07/24/22 Omeprazole [PriLOSEC] 40 mg PO DAILY 08/17/19 07/24/22 Furosemide [Lasix] 40 mg PO DAILY 07/25/20 07/24/22 Spironolactone [Aldactone] 25 mg PO DAILY 08/08/20 07/24/22 Irbesartan [Avapro] 150 mg PO DAILY@1200 11/06/20 07/24/22 Metoprolol Succinate [Toprol XL] 200 mg PO HS 11/06/20 07/24/22 Albuterol Inhaler [Ventolin Hfa 2 puff INHALATION RT-Q6H PRN 07/24/22 07/24/22 Inhaler] Cholecalciferol [Vitamin D3 (25 25 mcg PO DAILY 07/24/22 07/24/22 Mcg = 1000 Iu)] Fluticasone Propion/Salmeterol 1 puff PO RT-BID 07/24/22 07/24/22 [Fluticasone-Salmeterol 100-50] Glimepiride [Amaryl] 2 mg PO HS 07/24/22 07/24/22 Insulin Aspart [NovoLOG Flexpen] 6 - 8 units SQ AC-TID 07/24/22 07/24/22 Meclizine [Antivert] 25 mg PO TID PRN 07/24/22 07/24/22 Previous Rx's Medication Instructions Recorded Dicyclomine [Bentyl] 20 mg PO TID PRN #30 tablet 07/24/22 Ondansetron Odt [Zofran Odt] 4 mg PO Q8HR PRN #20 tab 07/24/22 Allergies Allergy/AdvReac Type Severity Reaction Status Date / Time doxycycline [From Vibramycin] Allergy Unknown Rash/Hives Verified 07/24/22 11:32 MITALI Inhibitors Allergy Unknown Verified 07/24/22 11:32 colchicine Allergy Rash/Hives Verified 07/24/22 11:32 erythromycin base Allergy Rash/Hives Verified 07/24/22 11:32 Iodinated Contrast Media Allergy Unknown Verified 07/24/22 11:32 iodine Allergy Unknown Verified 07/24/22 11:32 lisinopril Allergy Unknown Verified 07/24/22 11:32 sulfamethoxazole Allergy Rash/Hives Verified 07/24/22 11:32 [From Bactrim] trimethoprim [From Bactrim] Allergy Rash/Hives Verified 07/24/22 11:32 moexipril HCl [From Univasc] AdvReac Cough, Verified 07/24/22 11:32 choking black olives Allergy Anaphylaxis Uncoded 07/24/22 11:32 Review of Systems ROS Statement: Those systems with pertinent positive or pertinent negative responses have been documented in the HPI. ROS Other: All systems not noted in ROS Statement are negative. Past Medical History Past Medical History: Atrial Fibrillation, Coronary Artery Disease (CAD), CVA/TIA, Diabetes Mellitus, Eye Disorder, Hyperlipidemia, Hypertension, Liver Disease, Osteoarthritis (OA), Thyroid Disorder Additional Past Medical History / Comment(s): Pt recently admitted to [facility] on 07/26/20 with possible acute on chronic flareup pericarditis/effusion. 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, NIDDM type II, palpitations, SSS with pacemaker, hypothyroid, hepatitis in 1950s-pt does not know which type, hiatal hernia, bilateral tinnitis, bilateral macular degeneration with injections, arthritis in multiple joints, chronic low back pain with radiation down bilateral legs, vertigo, past epistaxis History of Any Multi-Drug Resistant Organisms: None Reported Past Surgical History: Ablation, Cardiac Ablation, Heart Catheterization, Hysterectomy, Joint Replacement, Orthopedic Surgery, Pacemaker Additional Past Surgical History / Comment(s): 06/23/17 pacemaker insertion and loop recorder removed, bilateral knee scopes/bilateral total knee arthroplasties, EGD, colonoscopy, bilaetral cataract removals, eye injections for macular. Past Anesthesia/Blood Transfusion Reactions: Motion Sickness, Postoperative Nausea & Vomiting (PONV) Type of Cardiac Device: Permanent Pacemaker Device Placement Date:: 06/2018 Past Psychological History: Anxiety Smoking Status: Never smoker Past Alcohol Use History: None Reported Past Drug Use History: None Reported - Past Family History Father Family Medical History: Congestive Heart Failure (CHF) Additional Family Medical History / Comment(s): Father of CHF at the age of 89yrs. Mother Family Medical History: CVA/TIA, Osteoarthritis (OA) Additional Family Medical History / Comment(s): Mother of a CVA at the age of 89yrs. Brother(s) Family Medical History: Cancer Additional Family Medical History / Comment(s): lymphoma Sister(s) Family Medical History: Cancer Additional Family Medical History / Comment(s): melanoma General Exam Limitations: no limitations General appearance: alert, in no apparent distress Head exam: Present: atraumatic, normocephalic, normal inspection Eye exam: Present: normal appearance, PERRL, EOMI. Absent: scleral icterus, conjunctival injection, periorbital swelling ENT exam: Present: normal exam, mucous membranes moist Neck exam: Present: normal inspection. Absent: tenderness, meningismus, lymphadenopathy Respiratory exam: Present: normal lung sounds bilaterally. Absent: respiratory distress, wheezes, rales, rhonchi, stridor Cardiovascular Exam: Present: regular rate, normal rhythm, normal heart sounds. Absent: systolic murmur, diastolic murmur, rubs, gallop, clicks GI/Abdominal exam: Present: soft, tenderness, normal bowel sounds. Absent: distended, guarding, rebound, rigid Extremities exam: Present: normal inspection, full ROM, normal capillary refill. Absent: tenderness, pedal edema, joint swelling, calf tenderness Back exam: Present: normal inspection Neurological exam: Present: alert, oriented X3, CN II-XII intact Psychiatric exam: Present: normal affect, normal mood Skin exam: Present: warm, dry, intact, normal color. Absent: rash Course Vital Signs 07/24/22 07/24/22 07/24/22 08:16 08:25 10:06 Temperature 98.4 F 97.8 F 98 F Pulse Rate 67 70 82 Respiratory 16 18 18 Rate Blood Pressure 146/65 159/73 147/66 O2 Sat by Pulse 96 98 96 Oximetry 07/24/22 07/24/22 12:20 14:21 Temperature 97.8 F 98.6 F Pulse Rate 60 65 Respiratory 16 16 Rate Blood Pressure 122/57 116/42 O2 Sat by Pulse 98 98 Oximetry Medical Decision Making - Medical Decision Making Upon arrival patient is placed into room 5. Thorough history and physical exam is performed. IV access established laboratory studies are conducted. Patient is given a liter bolus of normal saline, 4 mg of Zofran and form a grams of morphine. CT is performed of the patient's abdomen and pelvis. Patient does provide a stool sample which is negative for C. diff. She is given Bentyl and Reglan. CT demonstrates diverticulosis without diverticulitis. Patient is reevaluated after several hours and does have improvement in her symptoms. She is able to tolerate oral intake. She feels comfortable discharge home at this time. Instructed to follow-up with her primary care doctor in 2-4 days. She is given prescriptions for Bentyl and Reglan. No other alleviating, precipitating or modifying factors - Lab Data Result diagrams: 07/24/22 08:53 07/24/22 08:53 Lab Results 07/24/22 07/24/22 07/24/22 Range/Units 08:53 08:53 08:53 WBC 11.3 H (3.8-10.6) k/uL RBC 4.37 (3.80-5.40) m/uL Hgb 12.4 (11.4-16.0) gm/dL Hct 38.7 (34.0-46.0) % MCV 88.6 (80.0-100.0) fL MCH 28.3 (25.0-35.0) pg MCHC 32.0 (31.0-37.0) g/dL RDW 15.8 H (11.5-15.5) % Plt Count 261 (150-450) k/uL MPV 8.2 Neutrophils % 76 % Lymphocytes % 17 % Monocytes % 5 % Eosinophils % 1 % Basophils % 1 % Neutrophils # 8.6 H (1.3-7.7) k/uL Lymphocytes # 1.9 (1.0-4.8) k/uL Monocytes # 0.6 (0-1.0) k/uL Eosinophils # 0.2 (0-0.7) k/uL Basophils # 0.1 (0-0.2) k/uL PT 10.6 (9.0-12.0) sec INR 1.0 (<1.2) APTT 27.4 (22.0-30.0) sec Sodium 140 (137-145) mmol/L Potassium 4.8 (3.5-5.1) mmol/L Chloride 105 (98-107) mmol/L Carbon Dioxide 23 (22-30) mmol/L Anion Gap 12 mmol/L BUN 20 H (7-17) mg/dL Creatinine 1.05 H (0.52-1.04) mg/dL Est GFR (CKD-EPI)AfAm 57 (>60 ml/min/1.73 sqM) Est GFR (CKD-EPI)NonAf 49 (>60 ml/min/1.73 sqM) Glucose 105 H (74-99) mg/dL Plasma Lactic Acid Marshal (0.7-2.0) mmol/L Calcium 9.2 (8.4-10.2) mg/dL Total Bilirubin 0.7 (0.2-1.3) mg/dL AST 25 (14-36) U/L ALT 19 (4-34) U/L Alkaline Phosphatase 166 H (38-126) U/L Total Protein 6.9 (6.3-8.2) g/dL Albumin 4.1 (3.5-5.0) g/dL Lipase 68 (23-300) U/L Urine Color Urine Appearance (Clear) Urine pH (5.0-8.0) Ur Specific [place] (1.001-1.035) Urine Protein (Negative) Urine Glucose (UA) (Negative) Urine Ketones (Negative) Urine Blood (Negative) Urine Nitrite (Negative) Urine Bilirubin (Negative) Urine Urobilinogen (<2.0) mg/dL Ur Leukocyte Esterase (Negative) Urine RBC (0-5) /hpf Urine WBC (0-5) /hpf Ur Squamous Epith Cells (0-4) /hpf Urine Bacteria (None) /hpf Hyaline Casts (0-2) /lpf Urine Mucus (None) /hpf Stool Lactoferrin (NEGATIVE) C. difficile (EIA) Intrp (Negative) 07/24/22 07/24/22 07/24/22 Range/Units 08:53 08:53 09:14 WBC (3.8-10.6) k/uL RBC (3.80-5.40) m/uL Hgb (11.4-16.0) gm/dL Hct (34.0-46.0) % MCV (80.0-100.0) fL MCH (25.0-35.0) pg MCHC (31.0-37.0) g/dL RDW (11.5-15.5) % Plt Count (150-450) k/uL MPV Neutrophils % % Lymphocytes % % Monocytes % % Eosinophils % % Basophils % % Neutrophils # (1.3-7.7) k/uL Lymphocytes # (1.0-4.8) k/uL Monocytes # (0-1.0) k/uL Eosinophils # (0-0.7) k/uL Basophils # (0-0.2) k/uL PT (9.0-12.0) sec INR (<1.2) APTT (22.0-30.0) sec Sodium (137-145) mmol/L Potassium (3.5-5.1) mmol/L Chloride (98-107) mmol/L Carbon Dioxide (22-30) mmol/L Anion Gap mmol/L BUN (7-17) mg/dL Creatinine (0.52-1.04) mg/dL Est GFR (CKD-EPI)AfAm (>60 ml/min/1.73 sqM) Est GFR (CKD-EPI)NonAf (>60 ml/min/1.73 sqM) Glucose (74-99) mg/dL Plasma Lactic Acid Marshal 1.7 (0.7-2.0) mmol/L Calcium (8.4-10.2) mg/dL Total Bilirubin (0.2-1.3) mg/dL AST (14-36) U/L ALT (4-34) U/L Alkaline Phosphatase (38-126) U/L Total Protein (6.3-8.2) g/dL Albumin (3.5-5.0) g/dL Lipase (23-300) U/L Urine Color Yellow Urine Appearance Cloudy H (Clear) Urine pH 5.5 (5.0-8.0) Ur Specific [place] 1.017 (1.001-1.035) Urine Protein Trace H (Negative) Urine Glucose (UA) Negative (Negative) Urine Ketones Negative (Negative) Urine Blood Negative (Negative) Urine Nitrite Negative (Negative) Urine Bilirubin Negative (Negative) Urine Urobilinogen <2.0 (<2.0) mg/dL Ur Leukocyte Esterase Negative (Negative) Urine RBC 8 H (0-5) /hpf Urine WBC 3 (0-5) /hpf Ur Squamous Epith Cells 5 H (0-4) /hpf Urine Bacteria Rare H (None) /hpf Hyaline Casts 1 (0-2) /lpf Urine Mucus Occasional H (None) /hpf Stool Lactoferrin POSITIVE A (NEGATIVE) C. difficile (EIA) Intrp (Negative) 07/24/22 Range/Units 09:14 WBC (3.8-10.6) k/uL RBC (3.80-5.40) m/uL Hgb (11.4-16.0) gm/dL Hct (34.0-46.0) % MCV (80.0-100.0) fL MCH (25.0-35.0) pg MCHC (31.0-37.0) g/dL RDW (11.5-15.5) % Plt Count (150-450) k/uL MPV Neutrophils % % Lymphocytes % % Monocytes % % Eosinophils % % Basophils % % Neutrophils # (1.3-7.7) k/uL Lymphocytes # (1.0-4.8) k/uL Monocytes # (0-1.0) k/uL Eosinophils # (0-0.7) k/uL Basophils # (0-0.2) k/uL PT (9.0-12.0) sec INR (<1.2) APTT (22.0-30.0) sec Sodium (137-145) mmol/L Potassium (3.5-5.1) mmol/L Chloride (98-107) mmol/L Carbon Dioxide (22-30) mmol/L Anion Gap mmol/L BUN (7-17) mg/dL Creatinine (0.52-1.04) mg/dL Est GFR (CKD-EPI)AfAm (>60 ml/min/1.73 sqM) Est GFR (CKD-EPI)NonAf (>60 ml/min/1.73 sqM) Glucose (74-99) mg/dL Plasma Lactic Acid Marshal (0.7-2.0) mmol/L Calcium (8.4-10.2) mg/dL Total Bilirubin (0.2-1.3) mg/dL AST (14-36) U/L ALT (4-34) U/L Alkaline Phosphatase (38-126) U/L Total Protein (6.3-8.2) g/dL Albumin (3.5-5.0) g/dL Lipase (23-300) U/L Urine Color Urine Appearance (Clear) Urine pH (5.0-8.0) Ur Specific [place] (1.001-1.035) Urine Protein (Negative) Urine Glucose (UA) (Negative) Urine Ketones (Negative) Urine Blood (Negative) Urine Nitrite (Negative) Urine Bilirubin (Negative) Urine Urobilinogen (<2.0) mg/dL Ur Leukocyte Esterase (Negative) Urine RBC (0-5) /hpf Urine WBC (0-5) /hpf Ur Squamous Epith Cells (0-4) /hpf Urine Bacteria (None) /hpf Hyaline Casts (0-2) /lpf Urine Mucus (None) /hpf Stool Lactoferrin (NEGATIVE) C. difficile (EIA) Intrp Negative (Negative) - EKG Data EKG Comments: EKG demonstrates an atrial jugular pacemaker with a rate of 66. Urine O1 85. QRS 189. QTC of 491. Pacemaker captures appropriately. No ST segment elevation Disposition Clinical Impression: Abdominal pain, Nausea and vomiting, Diarrhea, Abdominal cramping Disposition: HOME SELF-CARE Condition: Stable Instructions (If sedation given, give patient instructions): Acute Nausea and Vomiting (ED) Additional Instructions: Please eat simple foods such as bananas, rice, applesauce and toast. Take the medications as directed and follow-up with your primary care doctor in 2-4 days. Return for any new or worsening symptoms. Prescriptions: Dicyclomine [Bentyl] 20 mg PO TID PRN #30 tablet PRN Reason: Diarrhea Ondansetron Odt [Zofran Odt] 4 mg PO Q8HR PRN #20 tab PRN Reason: Nausea Is patient prescribed a controlled substance at d/c from ED?: No Referrals: Mark Macias DO [Primary Care Provider] - 1-2 days Time of Disposition: 14:16
--- NOTE | 2022-07-24 10:57 | CT ---
EXAMINATION TYPE: CT abdomen pelvis wo con DATE OF EXAM: 07/24/2022 COMPARISON: No comparisons are available at this time. INDICATION: Abdominal pain, Diarrhea for 3 days. History of CVA 10 years ago (08-08-2012) DLP: 978.3 mGycm, Automated exposure control for dose reduction was used. CONTRAST: 0 mL of Isovue 300. Study performed without Oral Contrast TECHNIQUE: Axial images were obtained from above the diaphragm to the pubic rami in the axial plane a t 5 mm thick sections. Reconstructed images are reviewed on the computer in the coronal plane. FINDINGS: Limited CT sections are obtained the lung bases. The lung bases are clear. There is a small hiatal hernia. CT ABDOMEN: Liver: Normal Spleen: Normal Pancreas: Normal Adrenal glands: The adrenal glands are normal. Gallbladder: Normal Kidneys: No masses are evident. No hydronephrosis is present. No cysts are present. Delayed images were obtained through the kidneys, which remain unremarkable. Aorta: Vascular calcification is within the aorta. Inferior vena cava: Normal. CT PELVIS: Loops of bowel within the abdomen and pelvis are normal. Few diverticuli are present within the sigmo id colon. No inflammatory changes adjacent to suggest acute diverticulitis. No suspicious dilated loops of bowel are evident. No suspicious fluid filled loops of bowel are evident. Appendix: Not identified. No inflammatory changes or dilated tubular structures are evident. Urinary bladder: Normal. Genitourinary structures: Uterus and ovaries are not identified. Osseous structures: No suspicious lytic or sclerotic lesions. Sacroiliac joint degenerative changes a re present. Facet hypertrophy is in the lower lumbar spine. IMPRESSIONS: 1. Diverticulosis without acute diverticulitis. 2. Hiatal hernia.
[2022-07-24 12:23] VITALS: RESP 16
[2022-07-24] MEDS ORDERED: METOCLOPRAMIDE 5 MG/ML 2 ML VIAL IVP STA (12:32)
[2022-07-24] MEDS ORDERED: DICYCLOMINE 10 MG CAP PO STA (12:32)
[2022-07-24 14:23] VITALS: BP 116/42; PULSE 65; TEMP 98.6
== END 2022-07-24 14:25 | disposition home or self-care (01) ==
LOC: EC 08:09
DX: R10.9 Unspecified abdominal pain (principal); R19.7 Diarrhea, unspecified; I48.91 Unspecified atrial fibrillation; I25.10 Atherosclerotic heart disease of native coronary artery without angina pectoris; E11.9 Type 2 diabetes mellitus without complications; E78.5 Hyperlipidemia, unspecified; I10 Essential (primary) hypertension; M19.90 Unspecified osteoarthritis, unspecified site; E07.9 Disorder of thyroid, unspecified; F41.9 Anxiety disorder, unspecified; Z88.1 Allergy status to other antibiotic agents; Z88.8 Allergy status to other drugs, medicaments and biological substances; Z91.041 Radiographic dye allergy status; Z88.2 Allergy status to sulfonamides; Z91.018 Allergy to other foods; Z79.51 Long term (current) use of inhaled steroids; Z79.4 Long term (current) use of insulin; Z79.82 Long term (current) use of aspirin; Z79.890 Hormone replacement therapy
CPT/HCPCS: 36415; 93005; 80053; 83605; 83690; 85025; 85610; 85730; 81001; 87324; 87045; 83630; 87046; 74176; 99284; 96375 ×2; 96361 ×4; 96374; J2270; J2765; J2405

== ENCOUNTER → 2022-10-28 | Outpatient (CLI) | payer MEDICARE, BC ==
[2022-10-28 17:05] LABS: ALT 20 U/L (8-44); AST 21 U/L (13-35); African American GFR (CKD) 43.6 (60.0-200.0); Albumin/Globulin Ratio 1.43 (1.60-3.17); Alkaline Phosphatase 143 U/L (41-126); BUN/Creat Ratio 16.85 Ratio (12.00-20.00); Blood Urea Nitrogen 21.9 mg/dL (9.0-27.0); Calcium 8.8 mg/dL (8.7-10.3); Carbon Dioxide 22.3 mmol/L (20.0-27.5); Chloride 103 mmol/L (96-109); Chol/HDL Ratio 2.92 Ratio; Globulin 2.8 g/dL (1.6-3.3); Glucose 99 mg/dL (70-110); LDL Cholesterol,Calculated 64.5 mg/dL (0.0-131.0); Non-African American GFR(CKD) 37.6 (60.0-200.0); Potassium 4.5 mmol/L (3.5-5.5); Sodium 140 mmol/L (135-145); Total Protein 6.8 g/dL (6.2-8.2)
[2022-10-28 21:39] LABS: Microalbumin Creatinine Ratio <30 mg/g Creat (0-30)
== END | disposition home or self-care (01) ==
LOC: LABWHC1 08:58
PROVIDERS: ATTEND Internal Medicine Endocrinology, Diabetes & Metabolism
DX: E11.65 Type 2 diabetes mellitus with hyperglycemia (principal)
CPT/HCPCS: 36415; 80053; 80061; 82043; 82570; 83036; 84443

== ENCOUNTER 2022-11-15 09:28 | Emergency (ER) | payer MEDICARE, BC ==
[2022-11-15] MEDS ORDERED: DIPH,PERTUS(ACELL)TETVAC-LF 0.5 ML VIAL IM ONE (09:33)
[2022-11-15 09:39] VITALS: BP 136/51; PULSE 68; RESP 20; TEMP 97.2
--- NOTE | 2022-11-15 10:00 | ED ---
General Adult HPI - General Chief complaint: Burn/Smoke Inhalation Stated complaint: Burn on Leg,Fall Time Seen by Provider: 11/15/22 09:33 Source: patient, EMS, RN notes reviewed Mode of arrival: EMS Limitations: no limitations - History of Present Illness Initial comments: 82-year-old female presents emergency department to complaint of a burn to her r ight leg. Patient states she knocked over the iron off her ironing board. Patient has burning sensation to her right leg states that she has some skin peeling from her leg. She is unsure when her last tetanus was. Patient is very anxious. Patient brought in by EMS. - Related Data Home Medications Medication Instructions Recorded Confirmed Aspirin 81 mg PO [id number]@199905/04/15 07/24/22 Atorvastatin Calcium [Lipitor] 40 mg PO HS 05/04/15 07/24/22 Levothyroxine Sodium [Synthroid] 50 mcg PO DAILY 05/04/15 07/24/22 ALPRAZolam 1 mg PO BID PRN 08/23/16 07/24/22 Vit C/E/Zn/Coppr/Lutein/Zeaxan 1 cap PO BID 02/16/17 07/24/22 [Preservision Areds 2 Softgel] Apixaban [Eliquis] 5 mg PO BID 08/17/19 07/24/22 Omeprazole [PriLOSEC] 40 mg PO DAILY 08/17/19 07/24/22 Furosemide [Lasix] 40 mg PO DAILY 07/25/20 07/24/22 Spironolactone [Aldactone] 25 mg PO DAILY 08/08/20 07/24/22 Irbesartan [Avapro] 150 mg PO DAILY@1200 11/06/20 07/24/22 Metoprolol Succinate [Toprol XL] 200 mg PO HS 11/06/20 07/24/22 Albuterol Inhaler [Ventolin Hfa 2 puff INHALATION RT-Q6H PRN 07/24/22 07/24/22 Inhaler] Cholecalciferol [Vitamin D3 (25 25 mcg PO DAILY 07/24/22 07/24/22 Mcg = 1000 Iu)] Fluticasone Propion/Salmeterol 1 puff PO RT-BID 07/24/22 07/24/22 [Fluticasone-Salmeterol 100-50] Glimepiride [Amaryl] 2 mg PO HS 07/24/22 07/24/22 Insulin Aspart [NovoLOG Flexpen] 6 - 8 units SQ AC-TID 07/24/22 07/24/22 Meclizine [Antivert] 25 mg PO TID PRN 07/24/22 07/24/22 Previous Rx's Medication Instructions Recorded Dicyclomine [Bentyl] 20 mg PO TID PRN #30 tablet 07/24/22 Ondansetron Odt [Zofran Odt] 4 mg PO Q8HR PRN #20 tab 07/24/22 Allergies Allergy/AdvReac Type Severity Reaction Status Date / Time doxycycline [From Vibramycin] Allergy Unknown Rash/Hives Verified 07/24/22 11:32 MITALI Inhibitors Allergy Unknown Verified 07/24/22 11:32 colchicine Allergy Rash/Hives Verified 07/24/22 11:32 erythromycin base Allergy Rash/Hives Verified 07/24/22 11:32 Iodinated Contrast Media Allergy Unknown Verified 07/24/22 11:32 iodine Allergy Unknown Verified 07/24/22 11:32 lisinopril Allergy Unknown Verified 07/24/22 11:32 sulfamethoxazole Allergy Rash/Hives Verified 07/24/22 11:32 [From Bactrim] trimethoprim [From Bactrim] Allergy Rash/Hives Verified 07/24/22 11:32 moexipril HCl [From Univasc] AdvReac Cough, Verified 07/24/22 11:32 choking black olives Allergy Anaphylaxis Uncoded 07/24/22 11:32 Review of Systems ROS Statement: Those systems with pertinent positive or pertinent negative responses have been documented in the HPI. ROS Other: All systems not noted in ROS Statement are negative. 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, NIDDM type II, palpitations, SSS with pacemaker, hypothyroid, hepatitis in 1950s-pt does not know which type, hiatal hernia, bilateral tinnitis, bilateral macular degeneration with injections, arthritis in multiple joints, chronic low back pain with radiation down bilateral legs, vertigo, past epistaxis History of Any Multi-Drug Resistant Organisms: None Reported Past Surgical History: Ablation, Cardiac Ablation, Heart Catheterization, Hysterectomy, Joint Replacement, Orthopedic Surgery, Pacemaker Additional Past Surgical History / Comment(s): 06/23/17 pacemaker insertion and loop recorder removed, bilateral knee scopes/bilateral total knee arthroplasties, EGD, colonoscopy, bilaetral cataract removals, eye injections for macular. Past Anesthesia/Blood Transfusion Reactions: Motion Sickness, Postoperative Nausea & Vomiting (PONV) Type of Cardiac Device: Permanent Pacemaker Device Placement Date:: 06/2018 Past Psychological History: Anxiety Smoking Status: Never smoker Past Alcohol Use History: None Reported Past Drug Use History: None Reported - Past Family History Father Family Medical History: Congestive Heart Failure (CHF) Additional Family Medical History / Comment(s): Father of CHF at the age of 89yrs. Mother Family Medical History: CVA/TIA, Osteoarthritis (OA) Additional Family Medical History / Comment(s): Mother of a CVA at the age of 89yrs. Brother(s) Family Medical History: Cancer Additional Family Medical History / Comment(s): lymphoma Sister(s) Family Medical History: Cancer Additional Family Medical History / Comment(s): melanoma General Exam Limitations: no limitations General appearance: alert, in no apparent distress Head exam: Present: atraumatic, normocephalic, normal inspection Eye exam: Present: normal appearance, PERRL, EOMI. Absent: scleral icterus, conjunctival injection, periorbital swelling Respiratory exam: Present: normal lung sounds bilaterally. Absent: respiratory distress, wheezes, rales, rhonchi, stridor Cardiovascular Exam: Present: regular rate, normal rhythm, normal heart sounds. Absent: systolic murmur, diastolic murmur, rubs, gallop, clicks Extremities exam: Present: other (right leg lower 8 cm 2nd degree burn) Neurological exam: Present: alert Skin exam: Present: warm, dry, intact, normal color. Absent: rash Course Vital Signs 11/15/22 09:31 Temperature 97.2 F L Pulse Rate 68 Respiratory 20 Rate Blood Pressure 136/51 O2 Sat by Pulse 97 Oximetry Medical Decision Making - Medical Decision Making Was pt. sent in by a medical professional or institution (DANIELLE Medina, BUSINESS PROJECT MANAGER, urgent care, hospital, or usp...) When possible be specific @ -No Did you speak to anyone other than the patient for history (EMS, parent, family, police, friend...)? What history was obtained from this source @ -EMS provided prehospital care, medication and history Did you review nursing and triage notes (agree or disagree)? Why? @ -I reviewed and agree with nursing and triage notes Were old charts reviewed (outside hosp., previous admission, EMS record, old EKG, old radiological studies, urgent care reports/EKG's, usp records)? Report findings @ -No old charts were reviewed Differential Diagnosis (chest pain, altered mental status, abdominal pain women, abdominal pain men, vaginal bleeding, weakness, fever, dyspnea, syncope, headache, dizziness, GI bleed, back pain, seizure, CVA, palpatations, mental health)? @ -First-degree burn, second-degree burn, cellulitis, abscess, this list is not meant to be inclusive EKG interpreted by me (3pts min.). @ -None X-rays interpreted by me (1pt min.). @ -None done CT interpreted by me (1pt min.). @ -None done U/S interpreted by me (1pt. min.). @ -None done What testing was considered but not performed or refused? (CT, X-rays, U/S, labs)? Why? @ -None What meds were considered but not given or refused? Why? @ -None Did you discuss the management of the patient with other professionals (professionals i.e. DANIELLE Medina, BUSINESS PROJECT MANAGER, lab, RT, psych nurse, manager social responsibility, web page developer, teacher, traffic control officer, child support case officer)? Give summary @ -No Was smoking cessation discussed for >3mins.? @ -No Was critical care preformed (if so, how long)? @ -No Were there social determinants of health that impacted care today? How? (Homelessness, low income, unemployed, alcoholism, drug addiction, transportation, low edu. Level, literacy, decrease access to med. care, [facility], rehab)? @ -No Was there de-escalation of care discussed even if they declined (Discuss DNR or withdrawal of care, Hospice)? DNR status @ -No What co-morbidities impacted this encounter? (DM, HTN, Smoking, COPD, CAD, Cancer, CVA, ARF, Chemo, Hep., AIDS, mental health diagnosis, sleep apnea, morbid obesity)? @ -None Was patient admitted / discharged? Hospital course, mention meds given and route, prescriptions, significant lab abnormalities, going to OR and other pertinent info. @ -Discharged -82-year-old presented burn to right leg. Patient has second degree burn tetanus is updated patient had Silvadene cream placed. Patient feels improved we discharged stable condition. Undiagnosed new problem with uncertain prognosis? @ -No Drug Therapy requiring intensive monitoring for toxicity (Heparin, Nitro, Insulin, Cardizem)? @ -No Were any procedures done? @ -No Diagnosis/symptom? @ -Second-degree burn right leg Acute, or Chronic, or Acute on Chronic? @ -Acute Uncomplicated (without systemic symptoms) or Complicated (systemic symptoms)? @ -Uncomplicated Side effects of treatment? @ -No Exacerbation, Progression, or Severe Exacerbation? @ -No Poses a threat to life or bodily function? How? (Chest pain, [place], [place], pneumonia, PE, COPD, DKA, ARF, appy, cholecystitis, CVA, Diverticulitis, Homicidal, Suicidal, threat to staff... and all critical care pts) @ -No Disposition Clinical Impression: Second degree burn of right leg Disposition: HOME SELF-CARE Condition: Stable Instructions (If sedation given, give patient instructions): Second-Degree Burn (ED) Additional Instructions: Please return to the Emergency Department if symptoms worsen or any other concerns. Is patient prescribed a controlled substance at d/c from ED?: No Referrals: Mark Macias DO [Primary Care Provider] - 1-2 days Time of Disposition: 10:00
== END 2022-11-15 10:15 | disposition home or self-care (01) ==
LOC: EC 09:28
DX: T24.201A Burn of second degree of unspecified site of right lower limb, except ankle and foot, initial encounter (principal); I10 Essential (primary) hypertension; I48.91 Unspecified atrial fibrillation; I25.10 Atherosclerotic heart disease of native coronary artery without angina pectoris; E11.9 Type 2 diabetes mellitus without complications; E78.5 Hyperlipidemia, unspecified; M19.90 Unspecified osteoarthritis, unspecified site; E07.9 Disorder of thyroid, unspecified; F41.9 Anxiety disorder, unspecified; Z79.4 Long term (current) use of insulin; Z79.82 Long term (current) use of aspirin; Z79.890 Hormone replacement therapy; Z79.899 Other long term (current) drug therapy; Z88.1 Allergy status to other antibiotic agents; Z88.8 Allergy status to other drugs, medicaments and biological substances; Z23 Encounter for immunization
CPT/HCPCS: 90471; 90715; 99283

== ENCOUNTER 2023-03-25 09:38 | Emergency (ER) | payer MEDICARE, BC ==
--- NOTE | 2023-03-25 10:01 | ED ---
General Adult HPI - General Chief complaint: Abdominal Pain Stated complaint: Abd pain Time Seen by Provider: 03/25/23 09:44 Source: patient, RN notes reviewed, old records reviewed Mode of arrival: ambulatory Limitations: no limitations - History of Present Illness Initial comments: 82-year-old female presenting for evaluation of left upper quadrant abdominal pain for the past one week. Patient was seen by her painting and coating worker and had reported the symptoms and it was recommended that the patient presented emergency department for imaging of the abdomen. Patient denies chest pain. Denies difficulty breathing. Denies vomiting or nausea. She states she is having bowel movements but has to strain to have a small bowel movement. She denies fever. - Related Data Home Medications Medication Instructions Recorded Confirmed Aspirin 81 mg PO [id number]@199905/04/15 07/24/22 Atorvastatin Calcium [Lipitor] 40 mg PO HS 05/04/15 07/24/22 Levothyroxine Sodium [Synthroid] 50 mcg PO DAILY 05/04/15 07/24/22 ALPRAZolam 1 mg PO BID PRN 08/23/16 07/24/22 Vit C/E/Zn/Coppr/Lutein/Zeaxan 1 cap PO BID 02/16/17 07/24/22 [Preservision Areds 2 Softgel] Apixaban [Eliquis] 5 mg PO BID 08/17/19 07/24/22 Omeprazole [PriLOSEC] 40 mg PO DAILY 08/17/19 07/24/22 Furosemide [Lasix] 40 mg PO DAILY 07/25/20 07/24/22 Spironolactone [Aldactone] 25 mg PO DAILY 08/08/20 07/24/22 Irbesartan [Avapro] 150 mg PO DAILY@1200 11/06/20 07/24/22 Metoprolol Succinate [Toprol XL] 200 mg PO HS 11/06/20 07/24/22 Albuterol Inhaler [Ventolin Hfa 2 puff INHALATION RT-Q6H PRN 07/24/22 07/24/22 Inhaler] Cholecalciferol [Vitamin D3 (25 25 mcg PO DAILY 07/24/22 07/24/22 Mcg = 1000 Iu)] Fluticasone Propion/Salmeterol 1 puff PO RT-BID 07/24/22 07/24/22 [Fluticasone-Salmeterol 100-50] Glimepiride [Amaryl] 2 mg PO HS 07/24/22 07/24/22 Insulin Aspart [NovoLOG Flexpen] 6 - 8 units SQ AC-TID 07/24/22 07/24/22 Meclizine [Antivert] 25 mg PO TID PRN 07/24/22 07/24/22 Previous Rx's Medication Instructions Recorded Dicyclomine [Bentyl] 20 mg PO TID PRN #30 tablet 07/24/22 Ondansetron Odt [Zofran Odt] 4 mg PO Q8HR PRN #20 tab 07/24/22 Allergies Allergy/AdvReac Type Severity Reaction Status Date / Time doxycycline [From Vibramycin] Allergy Unknown Rash/Hives Verified 03/25/23 09:42 MITALI Inhibitors Allergy Unknown Verified 03/25/23 09:42 colchicine Allergy Rash/Hives Verified 03/25/23 09:42 erythromycin base Allergy Rash/Hives Verified 03/25/23 09:42 Iodinated Contrast Media Allergy Unknown Verified 03/25/23 09:42 iodine Allergy Unknown Verified 03/25/23 09:42 lisinopril Allergy Unknown Verified 03/25/23 09:42 sulfamethoxazole Allergy Rash/Hives Verified 03/25/23 09:42 [From Bactrim] trimethoprim [From Bactrim] Allergy Rash/Hives Verified 03/25/23 09:42 moexipril HCl [From Univasc] AdvReac Cough, Verified 03/25/23 09:42 choking black olives Allergy Anaphylaxis Uncoded 03/25/23 09:42 Review of Systems ROS Statement: Those systems with pertinent positive or pertinent negative responses have been documented in the HPI. ROS Other: All systems not noted in ROS Statement are negative. Past Medical History Past Medical History: Atrial Fibrillation, Coronary Artery Disease (CAD), CVA/TIA, Diabetes Mellitus, Eye Disorder, Hyperlipidemia, Hypertension, Liver Disease, Osteoarthritis (OA), Thyroid Disorder Additional Past Medical History / Comment(s): Pt recently admitted to 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, NIDDM type II, palpitations, SSS with pacemaker, hypothyroid, hepatitis in 1950s-pt does not know which type, hiatal hernia, bilateral tinnitis, bilateral macular degeneration with injections, arthritis in multiple joints, chronic low back pain with radiation down bilateral legs, vertigo, past epistaxis History of Any Multi-Drug Resistant Organisms: None Reported Past Surgical History: Ablation, Cardiac Ablation, Heart Catheterization, Hysterectomy, Joint Replacement, Orthopedic Surgery, Pacemaker Additional Past Surgical History / Comment(s): 06/23/17 pacemaker insertion and loop recorder removed, bilateral knee scopes/bilateral total knee arthroplast ies, EGD, colonoscopy, bilaetral cataract removals, eye injections for macular. Past Anesthesia/Blood Transfusion Reactions: Motion Sickness, Postoperative Nausea & Vomiting (PONV) Type of Cardiac Device: Permanent Pacemaker Device Placement Date:: 06/2018 Past Psychological History: Anxiety Smoking Status: Never smoker Past Alcohol Use History: None Reported Past Drug Use History: None Reported - Past Family History Father Family Medical History: Congestive Heart Failure (CHF) Additional Family Medical History / Comment(s): Father of CHF at the age of 89yrs. Mother Family Medical History: CVA/TIA, Osteoarthritis (OA) Additional Family Medical History / Comment(s): Mother of a CVA at the age of 89yrs. Brother(s) Family Medical History: Cancer Additional Family Medical History / Comment(s): lymphoma Sister(s) Family Medical History: Cancer Additional Family Medical History / Comment(s): melanoma General Exam Limitations: no limitations General appearance: alert, in no apparent distress Head exam: Present: atraumatic, normocephalic Eye exam: Present: normal appearance, PERRL ENT exam: Present: mucous membranes moist Neck exam: Present: normal inspection. Absent: tenderness, meningismus Respiratory exam: Present: normal lung sounds bilaterally. Absent: respiratory distress Cardiovascular Exam: Present: regular rate, normal rhythm GI/Abdominal exam: Present: soft, distended, tenderness (Left upper quadrant) Extremities exam: Present: normal inspection, normal capillary refill Neurological exam: Present: alert, oriented X3, CN II-XII intact. Absent: motor sensory deficit Psychiatric exam: Present: normal affect, normal mood Skin exam: Present: warm, dry, intact. Absent: cyanosis, diaphoretic Course Vital Signs 03/25/23 03/25/23 09:40 11:05 Temperature 97.3 F L Pulse Rate 65 60 Respiratory 20 16 Rate Blood Pressure 136/97 137/56 O2 Sat by Pulse 98 97 Oximetry Medical Decision Making - Medical Decision Making Was pt. sent in by a medical professional or institution (DANIELLE Medina, CHIEF DIGITAL OFFICER, urgent care, hospital, or alf...) When possible be specific @ -Sent in by her painting and coating worker Did you speak to anyone other than the patient for history (EMS, parent, family, police, friend...)? What history was obtained from this source @ Yes, is at bedside Did you review nursing and triage notes (agree or disagree)? Why? @ -I reviewed and agree with nursing and triage notes Were old charts reviewed (outside hosp., previous admission, EMS record, old EKG, old radiological studies, urgent care reports/EKG's, alf records)? Report findings @ -No old charts were reviewed Differential Diagnosis (chest pain, altered mental status, abdominal pain women, abdominal pain men, vaginal bleeding, weakness, fever, dyspnea, syncope, headache, dizziness, GI bleed, back pain, seizure, CVA, palpatations, mental health, musculoskeletal)? @ Differential Abdominal Pain Women: Appendicitis, Cholecystitis, diverticulosis, ischemic bowel, pancreatitis, hepatitis, UTI, gastroenteritis, AAA, incarcerated hernia, bowel obstruction, constipation, inflammatory bowel, hepatitis, peptic ulcer disease, splenic infarction, perforated viscus, kidney stone, this is not meant to be an all-i nclusive list EKG interpreted by me (3pts min.). @ -As above X-rays interpreted by me (1pt min.). @ -None done CT interpreted by me (1pt min.). @ Showing diverticulosis without diverticulitis, small pericardial effusion, no acute findings in the abdomen to explain the patient's pain. U/S interpreted by me (1pt. min.). @ -None done What testing was considered but not performed or refused? (CT, X-rays, U/S, labs)? Why? @ -None What meds were considered but not given or refused? Why? @ -None Did you discuss the management of the patient with other professionals (professionals i.e. DANIELLE Medina, CHIEF DIGITAL OFFICER, lab, RT, psych nurse, mental health social worker, origination specialist, teacher, chief security officer, case management director)? Give summary @ -No Was smoking cessation discussed for >3mins.? @ -No Was critical care preformed (if so, how long)? @ -No Were there social determinants of health that impacted care today? How? (Homelessness, low income, unemployed, alcoholism, drug addiction, transportation, low edu. Level, literacy, decrease access to med. care, senior living, rehab)? @ -No Was there de-escalation of care discussed even if they declined (Discuss DNR or withdrawal of care, Hospice)? DNR status @ -No What co-morbidities impacted this encounter? (DM, HTN, Smoking, COPD, CAD, Cancer, CVA, ARF, Chemo, Hep., AIDS, mental health diagnosis, sleep apnea, morbid obesity)? @ Hypertension Was patient admitted / discharged? Hospital course, mention meds given and route , prescriptions, significant lab abnormalities, going to OR and other pertinent info. @ -[82-year-old female with left upper quadrant abdominal pain. Minimal tenderness on exam. Sent in for CT imaging of the abdomen. This was ordered and did not have a definitive diagnosis to explain the patient's pain. Laboratory testing is unremarkable. She can follow with her primary care physician regarding these symptoms and return as needed with any worsening or changing symptoms. Undiagnosed new problem with uncertain prognosis? @ -No Drug Therapy requiring intensive monitoring for toxicity (Heparin, Nitro, Insulin, Cardizem)? @ -No Were any procedures done? @ -No Diagnosis/symptom? @ Abdominal pain Acute, or Chronic, or Acute on Chronic? @ Acute Uncomplicated (without systemic symptoms) or Complicated (systemic symptoms)? @ -default Side effects of treatment? @ -No Exacerbation, Progression, or Severe Exacerbation? @ -No Poses a threat to life or bodily function? How? (Chest pain, [place], [place], pneumonia, PE, COPD, DKA, ARF, appy, cholecystitis, CVA, Diverticulitis, Homicidal, Suicidal, threat to staff... and all critical care pts) @ -No - Lab Data Result diagrams: 03/25/23 10:29 03/25/23 10:29 Lab Results 03/25/23 03/25/23 03/25/23 Range/Units 10:29 10:29 10:29 WBC 9.9 (3.8-10.6) k/uL RBC 4.43 (3.80-5.40) m/uL Hgb 12.6 (11.4-16.0) gm/dL Hct 38.9 (34.0-46.0) % MCV 87.7 (80.0-100.0) fL MCH 28.4 (25.0-35.0) pg MCHC 32.4 (31.0-37.0) g/dL RDW 15.9 H (11.5-15.5) % Plt Count 246 (150-450) k/uL MPV 8.2 Neutrophils % 74 % Lymphocytes % 19 % Monocytes % 5 % Eosinophils % 1 % Basophils % 0 % Neutrophils # 7.3 (1.3-7.7) k/uL Lymphocytes # 1.9 (1.0-4.8) k/uL Monocytes # 0.5 (0-1.0) k/uL Eosinophils # 0.1 (0-0.7) k/uL Basophils # 0.0 (0-0.2) k/uL PT 10.5 (9.0-12.0) sec INR 1.0 (<1.2) APTT 26.8 (22.0-30.0) sec Sodium 140 (137-145) mmol/L Potassium 4.6 (3.5-5.1) mmol/L Chloride 105 (98-107) mmol/L Carbon Dioxide 27 (22-30) mmol/L Anion Gap 8 mmol/L BUN 24 H (7-17) mg/dL Creatinine 1.00 (0.52-1.04) mg/dL Est GFR (CKD-EPI)AfAm 60 (>60 ml/min/1.73 sqM) Est GFR (CKD-EPI)NonAf 52 (>60 ml/min/1.73 sqM) Glucose 125 H (74-99) mg/dL Plasma Lactic Acid Marshal (0.7-2.0) mmol/L Calcium 8.7 (8.4-10.2) mg/dL Total Bilirubin 0.8 (0.2-1.3) mg/dL AST 32 (14-36) U/L ALT 22 (4-34) U/L Alkaline Phosphatase 143 H (38-126) U/L Total Protein 7.2 (6.3-8.2) g/dL Albumin 3.9 (3.5-5.0) g/dL Lipase 82 (23-300) U/L 05/16/23 Range/Units 10:29 WBC (3.8-10.6) k/uL RBC (3.80-5.40) m/uL Hgb (11.4-16.0) gm/dL Hct (34.0-46.0) % MCV (80.0-100.0) fL MCH (25.0-35.0) pg MCHC (31.0-37.0) g/dL RDW (11.5-15.5) % Plt Count (150-450) k/uL MPV Neutrophils % % Lymphocytes % % Monocytes % % Eosinophils % % Basophils % % Neutrophils # (1.3-7.7) k/uL Lymphocytes # (1.0-4.8) k/uL Monocytes # (0-1.0) k/uL Eosinophils # (0-0.7) k/uL Basophils # (0-0.2) k/uL PT (9.0-12.0) sec INR (<1.2) APTT (22.0-30.0) sec Sodium (137-145) mmol/L Potassium (3.5-5.1) mmol/L Chloride (98-107) mmol/L Carbon Dioxide (22-30) mmol/L Anion Gap mmol/L BUN (7-17) mg/dL Creatinine (0.52-1.04) mg/dL Est GFR (CKD-EPI)AfAm (>60 ml/min/1.73 sqM) Est GFR (CKD-EPI)NonAf (>60 ml/min/1.73 sqM) Glucose (74-99) mg/dL Plasma Lactic Acid Marshal 2.1 H* (0.7-2.0) mmol/L Calcium (8.4-10.2) mg/dL Total Bilirubin (0.2-1.3) mg/dL AST (14-36) U/L ALT (4-34) U/L Alkaline Phosphatase (38-126) U/L Total Protein (6.3-8.2) g/dL Albumin (3.5-5.0) g/dL Lipase (23-300) U/L Disposition Clinical Impression: Abdominal pain Disposition: HOME SELF-CARE Condition: Good Instructions (If sedation given, give patient instructions): Abdominal Pain (ED) Is patient prescribed a controlled substance at d/c from ED?: No Referrals: Mark Macias DO [Primary Care Provider] - 1-2 days Time of Disposition: 11:34
[2023-03-25 10:52] LABS: Basophils % (A) 0 %; Eosinophils # (A) 0.1 k/uL (0-0.7); Eosinophils % (A) 1 %; HCT 38.9 % (34.0-46.0); HGB 12.6 gm/dL (11.4-16.0); Lymphocytes # (A) 1.9 k/uL (1.0-4.8); Lymphocytes % (A) 19 %; MCH 28.4 pg (25.0-35.0); MCHC 32.4 g/dL (31.0-37.0); MCV 87.7 fL (80.0-100.0); Mean Platelet Volume 8.2; Monocytes # (A) 0.5 k/uL (0-1.0); Monocytes % (A) 5 %; Neutrophils # (A) 7.3 k/uL (1.3-7.7); Neutrophils % (A) 74 %; Platelet Count 246 k/uL (150-450); RBC 4.43 m/uL (3.80-5.40); RDW 15.9 % (11.5-15.5); WBC 9.9 k/uL (3.8-10.6)
[2023-03-25 11:01] LABS: Albumin 3.9 g/dL (3.5-5.0); Calcium 8.7 mg/dL (8.4-10.2); Total Bilirubin 0.8 mg/dL (0.2-1.3); Total Protein 7.2 g/dL (6.3-8.2)
[2023-03-25 11:03] LABS: Partial Thromboplastin Time 26.8 sec (22.0-30.0); Prothrombin Time 10.5 sec (9.0-12.0)
--- NOTE | 2023-03-25 11:05 | CT ---
EXAMINATION TYPE: CT abdomen pelvis wo con DATE OF EXAM: 03/25/2023 COMPARISON: 07/24/2022 HISTORY: 82-year-old female left upper quadrant pain CT DLP: 904 mGycm. Automated exposure control for dose reduction was used. TECHNIQUE: Contiguous axial scanning of the abdomen and pelvis without IV contrast. Coronal and sagit haley reconstructions performed. FINDINGS: Heart is upper limits of normal in size. Small pericardial effusion along the left lateral margin of the heart measuring 1.4 cm thick. Strandy atelectasis in the lower lungs without pleural effusion. Small hiatal hernia. Breathing motion artifact in the upper abdomen. Allowing for limitations, noncontrast appearance of the liver, adrenal glands, gallbladder, kidneys, spleen, pancreas show no gross abnormality. No dilated small bowel, free fluid, or free air. No mesenteric or retroperitoneal lymphadenopathy. Mild overall stone burden. Generalized colonic diverticulosis without pericolonic inflammatory change . Bladder incompletely distended. Uterus surgically absent. Neither ovary is visualized. Small pelvic p hleboliths. No abnormal fluid collection the pelvis or pelvic lymphadenopathy. Bones: Severe degenerative changes right hip and moderate at the left hip. Osteopenia. Dictation the lower thoracic spine. 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 Degenerative grade 1 retrolisthesis L1-L2, L2-L3, L3-L4. IMPRESSION: 1. Small hiatal hernia. 2. A small pericardial effusion along the left lateral margin of the heart measuring 1.4 cm thick. 3. Generalized colonic diverticulosis without evidence for acute diverticulitis.
[2023-03-25 11:06] VITALS: PULSE 60
[2023-03-25 11:24] LABS: Potassium 4.6 mmol/L (3.5-5.1)
[2023-03-25 11:57] VITALS: BP 144/62; RESP 18; TEMP 97.4
== END 2023-03-25 12:09 | disposition home or self-care (01) ==
LOC: EC 09:38
DX: R10.12 Left upper quadrant pain (principal); I31.39 Other pericardial effusion (noninflammatory); K44.9 Diaphragmatic hernia without obstruction or gangrene; K57.30 Diverticulosis of large intestine without perforation or abscess without bleeding; I48.91 Unspecified atrial fibrillation; I25.10 Atherosclerotic heart disease of native coronary artery without angina pectoris; E11.9 Type 2 diabetes mellitus without complications; E78.5 Hyperlipidemia, unspecified; I10 Essential (primary) hypertension; M19.90 Unspecified osteoarthritis, unspecified site; E03.9 Hypothyroidism, unspecified; F41.9 Anxiety disorder, unspecified; Z86.73 Personal history of transient ischemic attack (TIA), and cerebral infarction without residual deficits; Z79.82 Long term (current) use of aspirin; Z79.890 Hormone replacement therapy; Z79.1 Long term (current) use of non-steroidal anti-inflammatories (NSAID); Z79.01 Long term (current) use of anticoagulants; Z79.899 Other long term (current) drug therapy; Z79.84 Long term (current) use of oral hypoglycemic drugs; Z79.4 Long term (current) use of insulin; Z88.2 Allergy status to sulfonamides; Z88.6 Allergy status to analgesic agent; Z91.041 Radiographic dye allergy status; Z88.8 Allergy status to other drugs, medicaments and biological substances; Z91.018 Allergy to other foods; Z88.1 Allergy status to other antibiotic agents
CPT/HCPCS: 36415; 74176; 80053; 83605; 83690; 85025; 85610; 85730; 99284

== ENCOUNTER → 2023-05-14 | Outpatient (CLI) | payer MEDICARE, BC ==
[2023-05-14 16:14] LABS: ALT 31 U/L (8-44); AST 26 U/L (13-35); Albumin 3.9 d/dL (3.8-4.9); Albumin/Globulin Ratio 1.39 Ratio (1.60-3.17); Alkaline Phosphatase 157 U/L (41-126); BUN/Creat Ratio 19.75 Ratio (12.00-20.00); Blood Urea Nitrogen 23.7 mg/dL (9.0-27.0); Calcium 9.2 mg/dL (8.7-10.3); Chloride 104 mmol/L (96-109); Chol/HDL Ratio 3.09 Ratio; Globulin 2.8 d/dL (1.6-3.3); Glucose 162 mg/dL (70-110); LDL Cholesterol,Calculated 71.1 mg/dL (0.0-131.0); Potassium 4.8 mmol/L (3.5-5.5); Sodium 141 mmol/L (135-145); Total Bilirubin 0.5 mg/dL (0.3-1.2); Total Protein 6.7 d/dL (6.2-8.2)
[2023-05-14 17:38] LABS: Microalbumin Creatinine Ratio <13 mg/g Cr (0-30); Urine Creatinine 95.4 mg/dL (28.0-217.0)
== END | disposition home or self-care (01) ==
LOC: LABWHC1 08:30
PROVIDERS: ATTEND Internal Medicine Endocrinology, Diabetes & Metabolism
DX: E11.69 Type 2 diabetes mellitus with other specified complication (principal)
CPT/HCPCS: 36415; 80053; 80061; 82043; 82570; 83036; 84443

== ENCOUNTER → 2023-09-30 | Outpatient (CLI) | payer MEDICARE ==
[2023-09-30 13:30] LABS: Basophils # (A) 0.07 X 10*3/uL (0.00-0.10); Basophils % (A) 0.7 %; Eosinophils # (A) 0.11 X 10*3/uL (0.04-0.35); Eosinophils % (A) 1.1 %; HCT 36.9 % (37.2-46.3); HGB 11.6 g/dL (12.0-15.0); Lymphocytes # (A) 2.16 X 10*3/uL (0.90-5.00); Lymphocytes % (A) 21.9 %; MCH 28.4 pg (27.0-32.0); MCHC 31.4 g/dL (32.0-37.0); MCV 90.2 FL (80.0-97.0); Mean Platelet Volume 11.1 FL (9.5-12.2); Monocytes % (A) 7.1 %; NRBC Per 100 WBC 0 X 10*3/uL (0.00-0.01); Neutrophils # (A) 6.76 X 10*3/uL (1.80-7.70); Neutrophils % (A) 68.7 %; Platelet Count 275 X 10*3/uL (140-440); RBC 4.09 X 10*6/uL (4.10-5.20); RDW 16.7 % (11.5-14.5); WBC 9.85 X 10*3/uL (4.50-10.00)
[2023-09-30 14:15] LABS: % Iron Saturation 18.52 (12.00-45.00); ALT 23 U/L (8-44); AST 20 U/L (13-35); Albumin/Globulin Ratio 1.43 Ratio (1.60-3.17); Alkaline Phosphatase 164 U/L (41-126); BUN/Creat Ratio 17.67 Ratio (12.00-20.00); Bilirubin, Conjugated <0.20 mg/dL (0.20-0.40); Blood Urea Nitrogen 21.2 mg/dL (9.0-27.0); Calcium 9.1 mg/dL (8.7-10.3); Carbon Dioxide 22.9 mmol/L (21.6-31.8); Chloride 103 mmol/L (96-109); Chol/HDL Ratio 3.11 Ratio; Ferritin 75.6 ng/mL (10.0-291.0); Globulin 2.8 g/dL (1.6-3.3); Glucose 157 mg/dL (70-110); Iron 65 UG/DL (50-170); LDL Cholesterol,Calculated 71.5 mg/dL (0.0-131.0); Phosphorus 3.2 mg/dL (2.4-5.1); Potassium 4.5 mmol/L (3.5-5.5); Sodium 138 mmol/L (135-145); T4, Free (Free Thyroxine) 1.03 ng/dL (0.80-1.80); Total Bilirubin 0.5 mg/dL (0.3-1.2); Total Iron Binding Capacity 351 UG/DL (228-460); Total Protein 6.8 g/dL (6.2-8.2); Uric Acid 6.7 mg/dL (2.9-7.7)
[2023-09-30 14:18] LABS: Bilirubin,Unconjugated >0.3 mg/dL (0.2-1.0)
[2023-09-30 18:27] LABS: Appearance,Urine Cloudy (Clear); Bilirubin,Urine Negative (Negative); Blood,Urine Negative (Negative); Color,Urine Yellow (Yellow); Ketones,Urine Negative (Negative); Nitrite,Urine Negative (Negative); PH, Urine 6.5; Specific Gravity,Urine 1.014 (1.001-1.030)
[2023-09-30 21:13] LABS: Microalbumin Creatinine Ratio <13 mg/g Cr (0-30); Urine Creatinine 93.7 mg/dL (28.0-217.0)
[2023-09-30 22:19] LABS: Bacteria,Urine Trace; Yeast (UA) Present (None Seen)
== END | disposition home or self-care (01) ==
LOC: LABWHC1 07:56
PROVIDERS: ATTEND Internal Medicine Nephrology
DX: Z00.01 Encounter for general adult medical examination with abnormal findings (principal); E11.3211 Type 2 diabetes mellitus with mild nonproliferative diabetic retinopathy with macular edema, right eye; E03.8 Other specified hypothyroidism; N39.0 Urinary tract infection, site not specified; N25.81 Secondary hyperparathyroidism of renal origin; E55.9 Vitamin D deficiency, unspecified; M10.9 Gout, unspecified; N18.32 Chronic kidney disease, stage 3b; D63.1 Anemia in chronic kidney disease
CPT/HCPCS: 36415; 80053; 80061; 81001; 82043; 82248; 82306; 82570; 82728; 83540; 83550; 83735; 83970; 84100; 84439; 84443; 84481; 84550; 85025

== ENCOUNTER 2023-11-11 11:04 | Emergency (ER) | payer MEDICARE ==
--- NOTE | 2023-11-11 11:38 | ED ---
General Adult HPI - General Source: RN notes reviewed <Cleo Heaton - Last Filed: 11/11/23 11:37> - General Source: patient, RN notes reviewed Mode of arrival: ambulatory <Kathy Felder - Last Filed: 11/11/23 16:58> - General Chief complaint: Abdominal Pain Stated complaint: abd pain Time Seen by Provider: 11/11/23 11:37 - History of Present Illness Initial comments: 83-year-old female with a past medical history significant for cardiac pacemaker presents emergency department with a chief complaint of EKG changes. (Cleo Heaton) This is an 83-year-old female who presents to the emergency department for acid reflux and EKG changes. Patient reports ongoing acid reflux over the last month. She was previously on omeprazole, but feels like it stopped working. Her PCP then tried her on famotidine, however she feels like this made it worse. She has since been taking a large amount of Tums, which are only mildly effec tive. She has seen BRANDAN Monterroso in the past, however she states that it has been 2-3 years. She went to urgent care today for the acid reflux, and states that they did an EKG and told her that it was abnormal, and advised she come to the emergency department for evaluation. Denies any chest pain or shortness of breath. (Kathy Felder) - Related Data Home Medications Medication Instructions Recorded Confirmed Aspirin 81 mg PO [id number]/15 07/24/22 Atorvastatin Calcium [Lipitor] 40 mg PO HS 05/04/15 07/24/22 Levothyroxine Sodium [Synthroid] 50 mcg PO DAILY 05/04/15 07/24/22 ALPRAZolam 1 mg PO BID PRN 08/23/16 07/24/22 Vit C/E/Zn/Coppr/Lutein/Zeaxan 1 cap PO BID 02/16/17 07/24/22 [Preservision Areds 2 Softgel] Apixaban [Eliquis] 5 mg PO BID 08/17/19 07/24/22 Omeprazole [PriLOSEC] 40 mg PO DAILY 08/17/19 07/24/22 Furosemide [Lasix] 40 mg PO DAILY 07/25/20 07/24/22 Spironolactone [Aldactone] 25 mg PO DAILY 08/08/20 07/24/22 Irbesartan [Avapro] 150 mg PO DAILY@1200 11/06/20 07/24/22 Metoprolol Succinate [Toprol XL] 200 mg PO HS 11/06/20 07/24/22 Albuterol Inhaler [Ventolin Hfa 2 puff INHALATION RT-Q6H PRN 07/24/22 07/24/22 Inhaler] Cholecalciferol [Vitamin D3 (25 25 mcg PO DAILY 07/24/22 07/24/22 Mcg = 1000 Iu)] Fluticasone Propion/Salmeterol 1 puff PO RT-BID 07/24/22 07/24/22 [Fluticasone-Salmeterol 100-50] Glimepiride [Amaryl] 2 mg PO HS 07/24/22 07/24/22 Insulin Aspart [NovoLOG Flexpen] 6 - 8 units SQ AC-TID 07/24/22 07/24/22 Meclizine [Antivert] 25 mg PO TID PRN 07/24/22 07/24/22 Previous Rx's Medication Instructions Recorded Dicyclomine [Bentyl] 20 mg PO TID PRN #30 tablet 07/24/22 Ondansetron Odt [Zofran Odt] 4 mg PO Q8HR PRN #20 tab 07/24/22 Hyoscyamine Sulfate [Levsin] 0.125 mg PO Q4H PRN #30 tab 11/11/23 Mag Hydrox/Al Hydrox/Simeth 10 - 20 ml PO QID PRN #355 ml 11/11/23 [Maalox] Pantoprazole Sodium 40 mg PO DAILY 15 Days #15 tab 11/11/23 Allergies Allergy/AdvReac Type Severity Reaction Status Date / Time doxycycline [From Vibramycin] Allergy Unknown Rash/Hives Verified 11/11/23 11:37 MITALI Inhibitors Allergy Unknown Verified 11/11/23 11:37 colchicine Allergy Rash/Hives Verified 11/11/23 11:37 erythromycin base Allergy Rash/Hives Verified 11/11/23 11:37 Iodinated Contrast Media Allergy Unknown Verified 11/11/23 11:37 iodine Allergy Unknown Verified 11/11/23 11:37 lisinopril Allergy Unknown Verified 11/11/23 11:37 sulfamethoxazole Allergy Rash/Hives Verified 11/11/23 11:37 [From Bactrim] trimethoprim [From Bactrim] Allergy Rash/Hives Verified 11/11/23 11:37 moexipril HCl [From Univasc] AdvReac Cough, Verified 11/11/23 11:37 choking black olives Allergy Anaphylaxis Uncoded 11/11/23 11:37 Review of Systems ROS Other: All systems not noted in ROS Statement are negative. <Cleo Heaton - Last Filed: 11/11/23 11:37> ROS Other: All systems not noted in ROS Statement are negative. <Kathy Felder - Last Filed: 11/11/23 16:58> ROS Statement: Those systems with pertinent positive or pertinent negative responses have been documented in the HPI. Past Medical History Past Medical History: Atrial Fibrillation, Coronary Artery Disease (CAD), CVA/TIA, Diabetes Mellitus, Eye Disorder, Hyperlipidemia, Hypertension, Liver Disease, Osteoarthritis (OA), Thyroid Disorder Additional Past Medical History / Comment(s): Pt recently admitted to [facility] on 07/26/20 with possible acute on chronic flareup pericarditis/effusion. 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, NIDDM type II, palpitations, SSS with pacemaker, hypothyroid, hepatitis in 1949s-pt does not know which type, hiatal hernia, bilateral tinnitis, bilateral macular degeneration with injections, arthritis in multiple joints, chronic low back pain with radiation down bilateral legs, vertigo, past epistaxis History of Any Multi-Drug Resistant Organisms: None Reported Past Surgical History: Ablation, Cardiac Ablation, Heart Catheterization, Hysterectomy, Joint Replacement, Orthopedic Surgery, Pacemaker Additional Past Surgical History / Comment(s): 06/23/17 pacemaker insertion and loop recorder removed, bilateral knee scopes/bilateral total knee arthroplasties, EGD, colonoscopy, bilaetral cataract removals, eye injections for macular. Past Anesthesia/Blood Transfusion Reactions: Motion Sickness, Postoperative Nausea & Vomiting (PONV) Type of Cardiac Device: Permanent Pacemaker Device Placement Date:: 06/2018 Past Psychological History: Anxiety Smoking Status: Never smoker Past Alcohol Use History: None Reported Past Drug Use History: None Reported - Past Family History Father Family Medical History: Congestive Heart Failure (CHF) Additional Family Medical History / Comment(s): Father of CHF at the age of 89yrs. Mother Family Medical History: CVA/TIA, Osteoarthritis (OA) Additional Family Medical History / Comment(s): Mother of a CVA at the age of 89yrs. Brother(s) Family Medical History: Cancer Additional Family Medical History / Comment(s): lymphoma Sister(s) Family Medical History: Cancer Additional Family Medical History / Comment(s): melanoma <Cleo Heaton - Last Filed: 11/11/23 11:37> General Exam <Cleo Heaton - Last Filed: 11/11/23 11:37> Limitations: no limitations General appearance: alert, in no apparent distress Head exam: Present: atraumatic, normocephalic, normal inspection Respiratory exam: Present: normal lung sounds bilaterally. Absent: respiratory distress, wheezes, rales, rhonchi, stridor, chest wall tenderness Cardiovascular Exam: Present: regular rate, normal rhythm, normal heart sounds. Absent: systolic murmur, diastolic murmur, rubs, gallop, clicks GI/Abdominal exam: Present: soft, tenderness (Epigastric and RUQ), normal bowel sounds. Absent: distended, guarding, rebound, rigid Neurological exam: Present: alert, oriented X3, CN II-XII intact Psychiatric exam: Present: normal affect, normal mood Skin exam: Present: warm, dry, intact, normal color. Absent: rash <Kathy Felder - Last Filed: 11/11/23 16:58> - General Exam Comments Initial Comments: Visual Physical Exam Vital signs reviewed General: Well-appearing, nontoxic, no acute distress. Head: Normocephalic, atraumatic Eyes: PERRLA, EOMI ENT: Airway patent Chest: Nonlabored breathing Skin: No visual rash, normal skin tone Neuro: Alert and oriented 3 Musculoskeletal: No gross abnormalities (Cleo Heaton) Course Vital Signs 11/11/23 11/11/23 11/11/23 11:31 13:37 14:00 Temperature 98.7 F Pulse Rate 62 66 65 Respiratory 18 18 9 L Rate Blood Pressure 131/64 111/54 111/54 O2 Sat by Pulse 96 97 99 Oximetry 01/02/24 01/02/24 01/02/24 15:00 16:00 16:44 Temperature Pulse Rate 64 60 Respiratory 12 14 18 Rate Blood Pressure 139/74 123/51 133/52 O2 Sat by Pulse 94 L Oximetry Medical Decision Making <Cleo Heaton - Last Filed: 11/11/23 11:37> - Lab Data Result diagrams: 11/11/23 12:26 11/11/23 12:26 - Radiology Data Radiology results: report reviewed, image reviewed <Kathy Felder - Last Filed: 11/11/23 16:58> - Medical Decision Making I performed the quick note portion of this exam, verbal signature Cleo yun PA-C (Cleo Heaton) This is an 83-year-old female who presents to the emergency department for acid reflux. Was pt. sent in by a medical professional or institution? @ -Urgent care Did you speak to anyone other than the patient for history? @ -No Did you review nursing and triage notes? @ -Yes, and I agree, it is accurate with regards to the patient's symptoms. Were old charts reviewed? @ -No Differential Diagnosis? @ -Differential Acid Reflux: GERD, ulcer, cholecystitis, OK, this is not meant to be an all-inclusive list. EKG interpreted by me (3pts min.)? @ -EKG interpreted by me demonstrating the following: Electronic atrial pacemaker. Electronic ventricular pacemaker. Ventricular rate 60 beats per minute, W[place] interval 190 ms, QRS duration 182 ms, QTC 479 ms. X-rays interpreted by me (1pt min.)? @ -Chest x-ray obtained, my interpretation identifies no localized consolidati ons or infiltrates. CT interpreted by me (1pt min.)? @ -Not obtained U/S interpreted by me (1pt. min.)? @ -Gallbladder US obtained. My interpretation identifies no evidence of cholelithiasis. What testing was considered but not performed? (CT, X-rays, U/S, labs)? Why? @ -None What meds were considered but not given? Why? @ -None Did you discuss the management of the patient with other professionals? @ -No Did you reconcile home meds? @ -No Was smoking cessation discussed for >3mins.? @ -No Was critical care preformed (if so, how long)? @ -No Were there social determinants of health that impacted care today? How? (Homelessness, low income, unemployed, alcoholism, drug addiction, transportation, low edu. Level, literacy, decrease access to med. care, care home, rehab)? @ -No Was there de-escalation of care discussed even if they declined? (Discuss DNR or withdrawal of care, Hospice)? @ -No What co-morbidities impacted this encounter? (DM, HTN, Smoking, COPD, CAD, Cancer, CVA, Hep., AIDS, mental health diagnosis, sleep apnea, morbid obesity)? @ -A-fib, CAD, HTN, HLD Was patient admitted / discharged? @ -Discharged. Lab work obtained revealing leukocytosis and was otherwise unremarkable. Renal function is stable when compared with prior. Chest x-ray obtained revealing no acute process. Her EKG demonstrated a paced rhythm. When compared with prior EKGs it did not demonstrate any acute changes. She did have some right upper quadrant tenderness and a gallbladder ultrasound was obtained. This also revealed no acute findings. She was given a GI cocktail and essentially had resolution of symptoms. Prescription for pantoprazole and maalox provided with dosing instructions reviewed. Advised she follow back up with BRANDAN Monterroso, for reevaluation. Undiagnosed new problem with uncertain prognosis? @ -None Drug Therapy requiring intensive monitoring for toxicity (Heparin, Nitro, Insulin, Cardizem)? @ -None Were any procedures done? @ -None Diagnosis/symptom? @ -GERD Acute, or Chronic, or Acute on Chronic? @ -Acute Uncomplicated (without systemic symptoms) or Complicated (systemic symptoms)? @ -Uncomplicated Side effects of treatment? @ -None Exacerbation, Progression, or Severe Exacerbation] @ -Progression Poses a threat to life or bodily function? @ -No Return precautions reviewed in depth, the patient is instructed to return to the emergency department with any new, worsening, or concerning symptoms. Patient verbalized understanding. This case was discussed in detail with the attending ED physician, Dr. Fraser. Presentation, findings, and treatment plan discussed in detail as well. (Kathy Felder) - Lab Data Lab Results 11/11/23 11/11/23 11/11/23 Range/Units 12:26 12:26 12:26 WBC 12.2 H (3.8-10.6) k/uL RBC 4.56 (3.80-5.40) m/uL Hgb 13.2 (11.4-16.0) gm/dL Hct 40.4 (34.0-46.0) % MCV 88.5 (80.0-100.0) fL MCH 28.9 (25.0-35.0) pg MCHC 32.6 (31.0-37.0) g/dL RDW 16.0 H (11.5-15.5) % Plt Count 237 (150-450) k/uL MPV 8.6 Neutrophils % 76 % Lymphocytes % 19 % Monocytes % 4 % Eosinophils % 1 % Basophils % 0 % Neutrophils # 9.2 H (1.3-7.7) k/uL Lymphocytes # 2.3 (1.0-4.8) k/uL Monocytes # 0.5 (0-1.0) k/uL Eosinophils # 0.1 (0-0.7) k/uL Basophils # 0.0 (0-0.2) k/uL PT 18.4 H (10.0-12.5) sec INR 1.8 H (<1.2) APTT 31.3 H (22.0-30.0) sec Sodium 140 (137-145) mmol/L Potassium 4.6 (3.5-5.1) mmol/L Chloride 101 (98-107) mmol/L Carbon Dioxide 23 (22-30) mmol/L Anion Gap 16 mmol/L BUN 22 H (7-17) mg/dL Creatinine 1.09 H (0.52-1.04) mg/dL Est GFR (CKD-EPI)AfAm 54 (>60 ml/min/1.73 sqM) Est GFR (CKD-EPI)NonAf 47 (>60 ml/min/1.73 sqM) Glucose 153 H (74-99) mg/dL POC Glucose (mg/dL) (70-110) mg/dL POC Glu Applications Programmer ID Calcium 9.9 (8.4-10.2) mg/dL Magnesium 1.9 (1.6-2.3) mg/dL Total Bilirubin 0.7 (0.2-1.3) mg/dL AST 27 (14-36) U/L ALT 22 (4-34) U/L Alkaline Phosphatase 177 H (38-126) U/L Troponin I (0.000-0.034) ng/mL Total Protein 7.4 (6.3-8.2) g/dL Albumin 4.1 (3.5-5.0) g/dL Amylase (30-110) U/L Lipase (23-300) U/L 11/11/23 11/11/23 11/11/23 Range/Units 12:26 14:07 14:49 WBC (3.8-10.6) k/uL RBC (3.80-5.40) m/uL Hgb (11.4-16.0) gm/dL Hct (34.0-46.0) % MCV (80.0-100.0) fL MCH (25.0-35.0) pg MCHC (31.0-37.0) g/dL RDW (11.5-15.5) % Plt Count (150-450) k/uL MPV Neutrophils % % Lymphocytes % % Monocytes % % Eosinophils % % Basophils % % Neutrophils # (1.3-7.7) k/uL Lymphocytes # (1.0-4.8) k/uL Monocytes # (0-1.0) k/uL Eosinophils # (0-0.7) k/uL Basophils # (0-0.2) k/uL PT (10.0-12.5) sec INR (<1.2) APTT (22.0-30.0) sec Sodium (137-145) mmol/L Potassium (3.5-5.1) mmol/L Chloride (98-107) mmol/L Carbon Dioxide (22-30) mmol/L Anion Gap mmol/L BUN (7-17) mg/dL Creatinine (0.52-1.04) mg/dL Est GFR (CKD-EPI)AfAm (>60 ml/min/1.73 sqM) Est GFR (CKD-EPI)NonAf (>60 ml/min/1.73 sqM) Glucose (74-99) mg/dL POC Glucose (mg/dL) 121 H (70-110) mg/dL POC Glu Applications Programmer ID Oumou Hollis Calcium (8.4-10.2) mg/dL Magnesium (1.6-2.3) mg/dL Total Bilirubin (0.2-1.3) mg/dL AST (14-36) U/L ALT (4-34) U/L Alkaline Phosphatase (38-126) U/L Troponin I <0.012 (0.000-0.034) ng/mL Total Protein (6.3-8.2) g/dL Albumin (3.5-5.0) g/dL Amylase 54 (30-110) U/L Lipase 90 (23-300) U/L Disposition <Cleo Heaton - Last Filed: 11/11/23 11:37> Is patient prescribed a controlled substance at d/c from ED?: No <Kvngruth annivyKathy - Last Filed: 11/11/23 16:58> Clinical Impression: GERD (gastroesophageal reflux disease) Disposition: HOME SELF-CARE Instructions (If sedation given, give patient instructions): Diet for Stomach Ulcers and Gastritis (ED), GERD (Gastroesophageal Reflux Disease) (ED) Additional Instructions: Return to the emergency department with any new, worsening, or concerning symptoms. Take the pantoprazole daily for 15 days. Try to take this 30-60 minutes before eating or taking other medications. You can take the Maalox up to 4 times daily as needed for acid reflux or GI upset. The Levsin can be taken up to every 4 hours. The combination of these medications is what you received in the emergency department. Contact gastroenterology as listed below for a follow-up appointment and reevaluation. Follow up with your primary care provider in 1-2 days. Prescriptions: Hyoscyamine Sulfate [Levsin] 0.125 mg PO Q4H PRN #30 tab PRN Reason: Gi Upset Mag Hydrox/Al Hydrox/Simeth [Maalox] 10 - 20 ml PO QID PRN #355 ml PRN Reason: Gi Upset Pantoprazole Sodium 40 mg PO DAILY 15 Days #15 tab Referrals: Mark Macias DO [Primary Care Provider] - 1-2 days Renee Valladares MD [STAFF PHYSICIAN] - 1-2 days
[2023-11-11 11:47] VITALS: TEMP 98.7
--- NOTE | 2023-11-11 12:28 | XR ---
EXAMINATION TYPE: XR chest 2V DATE OF EXAM: 11/11/2023 12:22 PM CLINICAL INDICATION:Female, 83 years old with history of Chest pain; [facility] COMPARISON: Chest radiographs from 10/09/2020 TECHNIQUE: XR chest 2V Frontal and lateral views of the chest. FINDINGS: Lungs/Pleura: There is no evidence of pleural effusion, focal consolidation, or pneumothorax. Pulmonary vascularity: Unremarkable. Heart/mediastinum: Cardiomediastinal silhouette is unremarkable. Three lead cardiac conduction device overlying the left hemithorax with lead tips projecting over the right ventricle, right atrium and c oronary sinus. Musculoskeletal: No acute osseous pathology. Other findings: None IMPRESSION: No acute cardiopulmonary disease/process.
[2023-11-11 12:34] LABS: Basophils % (A) 0 %; Eosinophils # (A) 0.1 k/uL (0-0.7); Eosinophils % (A) 1 %; HCT 40.4 % (34.0-46.0); HGB 13.2 gm/dL (11.4-16.0); Lymphocytes # (A) 2.3 k/uL (1.0-4.8); Lymphocytes % (A) 19 %; MCH 28.9 pg (25.0-35.0); MCHC 32.6 g/dL (31.0-37.0); MCV 88.5 fL (80.0-100.0); Mean Platelet Volume 8.6; Monocytes # (A) 0.5 k/uL (0-1.0); Monocytes % (A) 4 %; Neutrophils # (A) 9.2 k/uL (1.3-7.7); Neutrophils % (A) 76 %; Platelet Count 237 k/uL (150-450); RBC 4.56 m/uL (3.80-5.40); WBC 12.2 k/uL (3.8-10.6)
[2023-11-11 12:51] LABS: INR 1.8 (<1.2); Partial Thromboplastin Time 31.3 sec (22.0-30.0); Prothrombin Time 18.4 sec (10.0-12.5)
[2023-11-11 13:01] LABS: ALT 22 U/L (4-34); AST 27 U/L (14-36); African American GFR (CKD) 54 (>60 ml/min/1.73 sqM); Albumin 4.1 g/dL (3.5-5.0); Alkaline Phosphatase 177 U/L (38-126); Anion Gap 16 mmol/L; Blood Urea Nitrogen 22 mg/dL (7-17); Calcium 9.9 mg/dL (8.4-10.2); Carbon Dioxide 23 mmol/L (22-30); Chloride 101 mmol/L (98-107); Glucose 153 mg/dL (74-99); Magnesium 1.9 mg/dL (1.6-2.3); Non-African American GFR(CKD) 47 (>60 ml/min/1.73 sqM); Potassium 4.6 mmol/L (3.5-5.1); Sodium 140 mmol/L (137-145); Total Bilirubin 0.7 mg/dL (0.2-1.3); Total Protein 7.4 g/dL (6.3-8.2)
[2023-11-11] MEDS ORDERED: SODIUM CHLORIDE 0.9% 1,000 ML IV STA (13:56)
[2023-11-11] MEDS ORDERED: MAG HYDROX/AL HYDROX/SIMETH 30 ML, HYOSCYAMINE ELIXIR 10 ML, LIDOCAINE 2% GLYDO JELLY 1... PO STA ×3 (13:56)
[2023-11-11 14:16] LABS: Amylase 54 U/L (30-110); Lipase 90 U/L (23-300)
[2023-11-11 14:50] LABS: Glucose,Whole Blood 121 mg/dL (70-110)
[2023-11-11] MEDS ORDERED: ALPRAZolam 1 MG TAB PO STA (14:53)
--- NOTE | 2023-11-11 15:47 | US ---
EXAMINATION TYPE: US gallbladder DATE OF EXAM: 11/11/2023 COMPARISON: NONE CLINICAL INDICATION: Female, 83 years old with history of Epigastric/RUQ pain, N/V; Heartburn, nausea TECHNIQUE: Multiple sonographic images of the right upper quadrant are obtained. FINDINGS: EXAM MEASUREMENTS: Liver Length: 13.3 cm Gallbladder Wall: 0.3 cm Right Kidney: 9.1 x 4.5 x 5.0 cm [employer] NOTES:Technical limitations due to patient's body habitus and large amount of overlying bowel content Pancreas: Obscured by bowel gas Liver: limited evaluation Gallbladder: no evidence of stones as visualized Evidence for sonographic Medrano's sign: no CBD: Obscured by overlying bowel gas Right Kidney: no evidence of hydronephrosis IMPRESSION: 1. No acute ultrasound abnormality. 2. There is some mild limitation due to technical factors.
[2023-11-11] MEDS ORDERED: ONDANSETRON 4 MG ODT STARTER PACK 2 TAB BTL PO STA (16:22)
[2023-11-11 17:07] VITALS: BP 133/52; PULSE 60; RESP 18
== END 2023-11-11 17:03 | disposition home or self-care (01) ==
LOC: EC 11:04
DX: K21.9 Gastro-esophageal reflux disease without esophagitis (principal); I48.91 Unspecified atrial fibrillation; I25.10 Atherosclerotic heart disease of native coronary artery without angina pectoris; E11.9 Type 2 diabetes mellitus without complications; I10 Essential (primary) hypertension; M19.90 Unspecified osteoarthritis, unspecified site; E78.5 Hyperlipidemia, unspecified; F41.9 Anxiety disorder, unspecified; Z79.890 Hormone replacement therapy; Z79.82 Long term (current) use of aspirin; Z79.1 Long term (current) use of non-steroidal anti-inflammatories (NSAID); Z79.899 Other long term (current) drug therapy; Z79.4 Long term (current) use of insulin; Z79.01 Long term (current) use of anticoagulants; Z79.84 Long term (current) use of oral hypoglycemic drugs; Z88.6 Allergy status to analgesic agent; Z91.041 Radiographic dye allergy status; Z88.2 Allergy status to sulfonamides; Z88.8 Allergy status to other drugs, medicaments and biological substances; Z91.018 Allergy to other foods
CPT/HCPCS: 36415; 93005; 80053; 82150; 83690; 83735; 84484; 85025; 85610; 85730; 71046; 76705; 99284; 96360; 96361; S0119

== ENCOUNTER → 2024-01-01 | Outpatient (CLI) | payer MEDICARE ==
[2024-01-01 16:01] LABS: Basophils # (A) 0.06 X 10*3/uL (0.00-0.10); Basophils % (A) 0.6 %; Eosinophils # (A) 0.05 X 10*3/uL (0.04-0.35); Eosinophils % (A) 0.5 %; HCT 37.3 % (37.2-46.3); Lymphocytes # (A) 2.39 X 10*3/uL (0.90-5.00); Lymphocytes % (A) 23.4 %; MCH 29.1 pg (27.0-32.0); MCHC 32.2 g/dL (32.0-37.0); MCV 90.5 FL (80.0-97.0); Mean Platelet Volume 11.6 FL (9.5-12.2); Monocytes # (A) 0.65 X 10*3/uL (0.20-1.00); Monocytes % (A) 6.4 %; NRBC Per 100 WBC 0 X 10*3/uL (0.00-0.01); Neutrophils # (A) 7.04 X 10*3/uL (1.80-7.70); Neutrophils % (A) 68.7 %; Platelet Count 225 X 10*3/uL (140-440); RBC 4.12 X 10*6/uL (4.10-5.20); WBC 10.23 X 10*3/uL (4.50-10.00)
[2024-01-01 22:50] LABS: ALT 17 U/L (8-44); AST 23 U/L (13-35); Albumin 3.8 g/dL (3.8-4.9); Albumin/Globulin Ratio 1.36 Ratio (1.60-3.17); Alkaline Phosphatase 158 U/L (41-126); BUN/Creat Ratio 16.27 Ratio (12.00-20.00); Blood Urea Nitrogen 17.9 mg/dL (9.0-27.0); Calcium 9.5 mg/dL (8.7-10.3); Carbon Dioxide 22.6 mmol/L (21.6-31.8); Chloride 101 mmol/L (96-109); Globulin 2.8 g/dL (1.6-3.3); Glucose 144 mg/dL (70-110); Potassium 4.4 mmol/L (3.5-5.5); Sodium 138 mmol/L (135-145); Total Bilirubin 0.5 mg/dL (0.3-1.2); Total Protein 6.6 g/dL (6.2-8.2)
== END | disposition home or self-care (01) ==
LOC: LABWHC1 11:29
PROVIDERS: ATTEND Internal Medicine Gastroenterology
DX: K21.9 Gastro-esophageal reflux disease without esophagitis (principal)
CPT/HCPCS: 36415; 80053; 85025

== ENCOUNTER → 2024-02-12 | Outpatient (CLI) | payer MEDICARE ==
[2024-02-12 10:26] LABS: Basophils # (A) 0.1 k/uL (0-0.2); Basophils % (A) 1 %; Eosinophils # (A) 0.1 k/uL (0-0.7); Eosinophils % (A) 1 %; HCT 43.8 % (34.0-46.0); HGB 13.5 gm/dL (11.4-16.0); Hypochromasia Slight; Lymphocytes # (A) 2.2 k/uL (1.0-4.8); Lymphocytes % (A) 21 %; MCH 29.3 pg (25.0-35.0); MCHC 30.8 g/dL (31.0-37.0); MCV 95.2 fL (80.0-100.0); Mean Platelet Volume 8.7; Monocytes # (A) 0.5 k/uL (0-1.0); Monocytes % (A) 5 %; Neutrophils # (A) 7.5 k/uL (1.3-7.7); Neutrophils % (A) 72 %; Platelet Count 234 k/uL (150-450); RDW 15.4 % (11.5-15.5); WBC 10.4 k/uL (3.8-10.6)
[2024-02-12 10:50] LABS: RBC Morphology Normal
[2024-02-12 15:01] LABS: ALT 21 U/L (8-44); AST 24 U/L (13-35); Albumin/Globulin Ratio 1.33 Ratio (1.60-3.17); Alkaline Phosphatase 170 U/L (41-126); BUN/Creat Ratio 15.42 Ratio (12.00-20.00); Blood Urea Nitrogen 18.5 mg/dL (9.0-27.0); Calcium 9.3 mg/dL (8.7-10.3); Carbon Dioxide 23.4 mmol/L (21.6-31.8); Chloride 99 mmol/L (96-109); Chol/HDL Ratio 2.96 Ratio; Glucose 191 mg/dL (70-110); LDL Cholesterol,Calculated 64.2 mg/dL (0.0-131.0); Potassium 4.6 mmol/L (3.5-5.5); Sodium 136 mmol/L (135-145); Total Bilirubin 0.5 mg/dL (0.3-1.2)
[2024-02-12 21:11] LABS: Microalbumin Creatinine Ratio <15 mg/g Cr (0-30); Urine Creatinine 82.7 mg/dL (28.0-217.0)
== END | disposition home or self-care (01) ==
LOC: LABWHC1 09:42
PROVIDERS: ATTEND Internal Medicine Endocrinology, Diabetes & Metabolism
DX: E11.65 Type 2 diabetes mellitus with hyperglycemia (principal); E78.5 Hyperlipidemia, unspecified
CPT/HCPCS: 36415; 80053; 80061; 82043; 82570; 83036; 84443; 85025

== ENCOUNTER → 2024-03-30 | Outpatient (CLI) | payer MEDICARE ==
--- NOTE | 2024-03-30 22:26 | CT ---
EXAMINATION TYPE: CT abdomen wo con CT DLP: 613 mGycm, Automated exposure control for dose reduction was used. DATE OF EXAM: 03/30/2024 12:55 PM COMPARISON: CT abdomen pelvis most recent from 03/25/2023 CLINICAL INDICATION:Female, 83 years old with history of R10.11 RIGHT UPPER QUADRANT PAIN; RUQ pain TECHNIQUE: Axial CT of the abdomen and pelvis. Sagittal and coronal reformats were created on a [employer] workstation. Contrast used: (none if empty) Oral contrast used: with Oral Contrast (none if empty) FINDINGS: LOWER CHEST: Unremarkable ABDOMEN LIVER: Unremarkable GALLBLADDER AND BILE DUCTS: Unremarkable. PANCREAS: Unremarkable. SPLEEN: Unremarkable. ADRENAL GLANDS: Unremarkable. KIDNEYS AND URETERS: No evidence of hydronephrosis or renal calculus. The visualized ureters are unre markable. STOMACH AND BOWEL: Small hiatal hernia. Few scattered colonic diverticula No evidence of bowel obstru ction. PERITONEUM/RETROPERITONEUM: No evidence of pneumoperitoneum or free fluid. VASCULATURE: Mild atherosclerotic calcifications are present throughout the abdominal aorta and its b ranches. No evidence of aortic aneurysm. MUSCULOSKELETAL: No acute osseous abnormalities. Moderate disc degeneration changes are present throu ghout the thoracolumbar spine. LYMPH NODES: No gross evidence for lymphadenopathy. SOFT TISSUE/ABDOMINAL WALL: Unremarkable IMPRESSION: 1. No acute process. 2. Small hiatal hernia.
== END | disposition home or self-care (01) ==
LOC: RADCTMAIN 11:23
PROVIDERS: ATTEND Internal Medicine Gastroenterology
DX: K44.9 Diaphragmatic hernia without obstruction or gangrene (principal)
CPT/HCPCS: 74150

== ENCOUNTER → 2024-04-02 | Outpatient (CLI) | payer MEDICARE ==
[2024-04-02 15:00] LABS: HCT 39.1 % (37.2-46.3); HGB 12.2 g/dL (12.0-15.0); MCH 28.7 pg (27.0-32.0); MCHC 31.2 g/dL (32.0-37.0); Mean Platelet Volume 11.3 FL (9.5-12.2); NRBC Per 100 WBC 0 X 10*3/uL (0.00-0.01); Platelet Count 251 X 10*3/uL (140-440); RBC 4.25 X 10*6/uL (4.10-5.20); WBC 9.68 X 10*3/uL (4.50-10.00)
[2024-04-02 15:33] LABS: ALT 15 U/L (8-44); AST 19 U/L (13-35); Albumin 4.1 g/dL (3.8-4.9); Albumin/Globulin Ratio 1.46 Ratio (1.60-3.17); Alkaline Phosphatase 166 U/L (41-126); Blood Urea Nitrogen 19.6 mg/dL (9.0-27.0); Calcium 9.5 mg/dL (8.7-10.3); Carbon Dioxide 21.5 mmol/L (21.6-31.8); Chloride 100 mmol/L (96-109); Ferritin 85.2 ng/mL (10.0-291.0); Globulin 2.8 g/dL (1.6-3.3); Glucose 183 mg/dL (70-110); Iron 68 UG/DL (50-170); Magnesium 1.9 mg/dL (1.5-2.4); Phosphorus 3.4 mg/dL (2.4-5.1); Potassium 4.3 mmol/L (3.5-5.5); Sodium 139 mmol/L (135-145); Total Bilirubin 0.6 mg/dL (0.3-1.2); Total Protein 6.9 g/dL (6.2-8.2)
[2024-04-02 15:39] LABS: % Iron Saturation 20.73 (12.00-45.00); Total Iron Binding Capacity 328 UG/DL (228-460)
[2024-04-02 16:02] LABS: Appearance,Urine Clear (Clear); Bilirubin,Urine Negative (Negative); Blood,Urine Negative (Negative); Color,Urine Yellow (Yellow); Ketones,Urine Negative (Negative); Nitrite,Urine Negative (Negative); Specific Gravity,Urine 1.016 (1.001-1.030)
[2024-04-02 19:22] LABS: Microalbumin Creatinine Ratio <9 mg/g Cr (0-30)
== END | disposition home or self-care (01) ==
LOC: LABWHC1 09:04
PROVIDERS: ATTEND Internal Medicine
DX: E55.9 Vitamin D deficiency, unspecified (principal); N39.0 Urinary tract infection, site not specified; N25.81 Secondary hyperparathyroidism of renal origin; N18.32 Chronic kidney disease, stage 3b; D63.1 Anemia in chronic kidney disease; M10.9 Gout, unspecified; R80.9 Proteinuria, unspecified
CPT/HCPCS: 36415; 80053; 81003; 82043; 82306; 82570; 82728; 83540; 83550; 83735; 83970; 84100; 84550; 85027

== ENCOUNTER 2024-05-05 08:17 | Day surgery (SDC) | payer MEDICARE ==
[~2024-05-05 08:17] MED LIST changes: +LIDOCAINE 1% (10MG/ML) FOR IV START INTRADERMA PRN; -SODIUM CHLORIDE 0.9% 1,000 ML IV SCH
[2024-05-05 09:14] LABS: Glucose,Whole Blood 170 mg/dL (70-110)
[2024-05-05] MEDS: IV FLUID CONTINUATION 1,000 ML IV ONE (09:15)
[2024-05-05 09:18] VITALS: TEMP 97
[2024-05-05] MEDS: ONDANSETRON 4 MG/2 ML VIAL IVP STA (09:25)
[2024-05-05] MEDS ORDERED: PROPOFOL 10 MG/ML 20 ML VIAL IV ONE (09:33)
--- NOTE | 2024-05-05 09:52 | P.PCN ---
Date of Procedure: 05/05/24 Procedure(s) Performed: BRIEF HISTORY: Patient is a 83-year-old, pleasant, white female scheduled for an upper endoscopy as a part evaluation of epigastric and right upper quadrant abdominal pain for the last 6 months duration. Symptoms worse with eating. Has some nausea but no emesis.. CT of the abdomen pelvis was unremarkable PROCEDURE PERFORMED: Esophagogastroduodenoscopy. PREOPERATIVE DIAGNOSIS: Chronic epigastric and right upper quadrant abdominal pain of 6 months duration. IV sedation per anesthesia. PROCEDURE: After informed consent was obtained, the patient was brought into the endoscopy unit. IV sedation was administered by Anesthesia under continuous monitoring. Initially the Olympus GIF-140 video endoscope was inserted into the mouth. Esophagus intubated without any difficulty. It was gradually advanced into the stomach and duodenum and carefully examined. The bulb and the second part of the duodenum appeared normal. Biopsies were done from the duodenum to evaluate for celiac disease. The scope at this time was withdrawn to the stomach, adequately insufflated with air, and upon careful examination, mucosa of the antrum, had mild gastritis and biopsies were done from this area. Mucosa of the body, cardia and the fundus appeared normal. The scope was then withdrawn into the esophagus. Small hiatal hernia noted. The GE junction was located at 35 cm from the incisors. The esophagus appeared normal. There were no erosions or ulcerations seen, biopsies were done from the distal esophagus and the patient tolerated the procedure well. IMPRESSION: 1. Mild acute gastritis. 2. Small hiatal hernia but no evidence of esophagitis or peptic ulcer disease. RECOMMENDATIONS: The findings of this examination were discussed with the patient and family. She was advised to follow-up with the biopsy results. Continue with Protonix 40 mg daily and follow antireflux measures. Follow-up in the office in 2 to 3 weeks.
[2024-05-05 10:21] VITALS: BP 119/63; PULSE 63; RESP 17
== END 2024-05-05 10:47 | disposition home or self-care (01) ==
LOC: ORWHC2ENDO 08:17
PROVIDERS: ATTEND Internal Medicine Gastroenterology
DX: K29.50 Unspecified chronic gastritis without bleeding (principal); K20.90 Esophagitis, unspecified without bleeding; K44.9 Diaphragmatic hernia without obstruction or gangrene; I10 Essential (primary) hypertension; E11.69 Type 2 diabetes mellitus with other specified complication; E78.5 Hyperlipidemia, unspecified; I48.91 Unspecified atrial fibrillation; I25.10 Atherosclerotic heart disease of native coronary artery without angina pectoris; E07.9 Disorder of thyroid, unspecified; N28.9 Disorder of kidney and ureter, unspecified; I69.354 Hemiplegia and hemiparesis following cerebral infarction affecting left non-dominant side; Z88.1 Allergy status to other antibiotic agents; Z88.2 Allergy status to sulfonamides; Z88.3 Allergy status to other anti-infective agents; Z88.8 Allergy status to other drugs, medicaments and biological substances; Z91.041 Radiographic dye allergy status; Z91.018 Allergy to other foods; Z79.899 Other long term (current) drug therapy; Z79.82 Long term (current) use of aspirin; Z79.890 Hormone replacement therapy; Z79.01 Long term (current) use of anticoagulants; Z79.4 Long term (current) use of insulin
CPT/HCPCS: 88305; 43239; J2405; J2704

== ENCOUNTER → 2024-08-04 | Outpatient (CLI) | payer MEDICARE ==
[2024-08-04 15:06] LABS: Basophils # (A) 0.05 X 10*3/uL (0.00-0.10); Basophils % (A) 0.6 %; Eosinophils # (A) 0.06 X 10*3/uL (0.04-0.35); Eosinophils % (A) 0.7 %; HCT 37.5 % (37.2-46.3); HGB 11.8 g/dL (12.0-15.0); Lymphocytes # (A) 1.93 X 10*3/uL (0.90-5.00); Lymphocytes % (A) 22.4 %; MCH 28.9 pg (27.0-32.0); MCHC 31.5 g/dL (32.0-37.0); MCV 91.7 FL (80.0-97.0); Mean Platelet Volume 11.3 FL (9.5-12.2); Monocytes # (A) 0.54 X 10*3/uL (0.20-1.00); Monocytes % (A) 6.3 %; NRBC Per 100 WBC 0 X 10*3/uL (0.00-0.01); Neutrophils # (A) 5.96 X 10*3/uL (1.80-7.70); Neutrophils % (A) 69.3 %; Platelet Count 248 X 10*3/uL (140-440); RBC 4.09 X 10*6/uL (4.10-5.20); RDW 15.9 % (11.5-14.5)
[2024-08-04 15:21] LABS: % Iron Saturation 20.46 (12.00-45.00); ALT 14 U/L (8-44); AST 17 U/L (13-35); Albumin 3.8 g/dL (3.8-4.9); Albumin/Globulin Ratio 1.36 Ratio (1.60-3.17); Alkaline Phosphatase 160 U/L (41-126); BUN/Creat Ratio 18.36 Ratio (12.00-20.00); Bilirubin, Conjugated <0.20 mg/dL (0.20-0.40); Bilirubin,Unconjugated >0.30 mg/dL (0.20-1.00); Blood Urea Nitrogen 20.2 mg/dL (9.0-27.0); Carbon Dioxide 21.1 mmol/L (21.6-31.8); Chloride 104 mmol/L (96-109); Ferritin 79.8 ng/mL (10.0-291.0); Globulin 2.8 g/dL (1.6-3.3); Glucose 174 mg/dL (70-110); Iron 71 UG/DL (50-170); Magnesium 1.9 mg/dL (1.5-2.4); Phosphorus 2.4 mg/dL (2.4-5.1); Potassium 4.6 mmol/L (3.5-5.5); Sodium 139 mmol/L (135-145); Total Bilirubin 0.5 mg/dL (0.3-1.2); Total Iron Binding Capacity 347 UG/DL (228-460); Total Protein 6.6 g/dL (6.2-8.2); Uric Acid 6.4 mg/dL (2.9-7.7)
[2024-08-04 15:38] LABS: Appearance,Urine Cloudy (Clear); Bilirubin,Urine Negative (Negative); Blood,Urine Negative (Negative); Color,Urine Yellow (Yellow); Ketones,Urine Negative (Negative); Nitrite,Urine Negative (Negative); Specific Gravity,Urine 1.018 (1.001-1.030)
[2024-08-04 15:57] LABS: Bacteria,Urine 1+ (None Seen); Yeast (UA) Present (None Seen)
[2024-08-04 22:17] LABS: Microalbumin Creatinine Ratio <10 mg/g Cr (0-30)
[2024-08-05 12:50] LABS: Free Kappa Lt Chain Qnt, Serum 5.96 mg/dL (0.33-1.94); Free Lambda Lt Chain Qnt, Seru 2.36 mg/dL (0.57-2.63)
== END | disposition home or self-care (01) ==
LOC: LABWHC1 09:31
PROVIDERS: ATTEND Internal Medicine
DX: N18.32 Chronic kidney disease, stage 3b (principal); E11.22 Type 2 diabetes mellitus with diabetic chronic kidney disease; D63.1 Anemia in chronic kidney disease; E55.9 Vitamin D deficiency, unspecified; E11.65 Type 2 diabetes mellitus with hyperglycemia; N39.0 Urinary tract infection, site not specified; N25.81 Secondary hyperparathyroidism of renal origin; M10.9 Gout, unspecified; R80.9 Proteinuria, unspecified
CPT/HCPCS: 36415; 80053; 80069; 81001; 82043; 82248; 82306; 82570; 82728; 83540; 83550; 83735; 83883; 83970; 84166; 84550; 85025; 86334

== ENCOUNTER → 2025-01-27 | Outpatient (CLI) | payer MEDICARE ==
[2025-01-27 14:52] LABS: Basophils # (A) 0.05 X 10*3/uL (0.00-0.10); Basophils % (A) 0.5 %; Eosinophils # (A) 0.12 X 10*3/uL (0.04-0.35); Eosinophils % (A) 1.2 %; HCT 39.8 % (37.2-46.3); HGB 12.3 g/dL (12.0-15.0); Lymphocytes # (A) 2.21 X 10*3/uL (0.90-5.00); Lymphocytes % (A) 22.6 %; MCH 28.5 pg (27.0-32.0); MCHC 30.9 g/dL (32.0-37.0); MCV 92.1 FL (80.0-97.0); Mean Platelet Volume 11.8 FL (9.5-12.2); Monocytes # (A) 0.61 X 10*3/uL (0.20-1.00); Monocytes % (A) 6.2 %; NRBC Per 100 WBC 0 X 10*3/uL (0.00-0.01); Neutrophils # (A) 6.74 X 10*3/uL (1.80-7.70); Platelet Count 278 X 10*3/uL (140-440); RBC 4.32 X 10*6/uL (4.10-5.20); RDW 15.3 % (11.5-14.5); WBC 9.78 X 10*3/uL (4.50-10.00)
[2025-01-27 15:23] LABS: % Iron Saturation 20.18 (12.00-45.00); ALT 18 U/L (8-44); AST 21 U/L (13-35); Albumin 3.7 g/dL (3.8-4.9); Albumin/Globulin Ratio 1.32 Ratio (1.60-3.17); Alkaline Phosphatase 163 U/L (41-126); BUN/Creat Ratio 19.83 Ratio (12.00-20.00); Blood Urea Nitrogen 23.8 mg/dL (9.0-27.0); Calcium 9.1 mg/dL (8.7-10.3); Carbon Dioxide 23.1 mmol/L (21.6-31.8); Chloride 103 mmol/L (96-109); Ferritin 72.8 ng/mL (10.0-291.0); Globulin 2.8 g/dL (1.6-3.3); Glucose 162 mg/dL (70-110); Iron 69 UG/DL (50-170); Potassium 4.6 mmol/L (3.5-5.5); Sodium 139 mmol/L (135-145); Total Bilirubin 0.5 mg/dL (0.3-1.2); Total Iron Binding Capacity 342 UG/DL (228-460); Total Protein 6.5 g/dL (6.2-8.2)
[2025-01-27 15:46] LABS: Free Kappa Lt Chain Qnt, Serum 6.12 mg/dL (0.33-1.94); Free Lambda Lt Chain Qnt, Seru 2.95 mg/dL (0.57-2.63)
[2025-01-27 16:07] LABS: Erythrocyte Sedimentation Rate 59 mm/Hr (0-30)
[2025-01-27 16:47] LABS: Reticulocyte % 2.11 % (0.10-1.80)
[2025-01-28 10:56] LABS: Protein, Total 6.9 g/dL (6.2-8.2)
[2025-01-29 06:22] LABS: Methylmalonic Acid 0.2 umol/L (<0.40)
[2025-01-31 12:10] LABS: Albumin 3.45 g/dL (3.80-4.90); Gamma Globulin 1.06 g/dL (0.70-1.50)
== END | disposition home or self-care (01) ==
LOC: LABWHC1 08:30
PROVIDERS: ATTEND Internal Medicine
DX: E83.39 Other disorders of phosphorus metabolism (principal); D63.1 Anemia in chronic kidney disease; N18.32 Chronic kidney disease, stage 3b; E11.9 Type 2 diabetes mellitus without complications; M12.9 Arthropathy, unspecified; J45.998 Other asthma; I48.91 Unspecified atrial fibrillation; D47.2 Monoclonal gammopathy; D60.9 Acquired pure red cell aplasia, unspecified; D53.8 Other specified nutritional anemias
CPT/HCPCS: 36415; 80053; 82607; 82668; 82728; 82747; 83540; 83550; 83735; 83883; 83921; 84165; 84166; 85025; 85045; 85652

== ENCOUNTER → 2025-05-26 | Outpatient (CLI) | payer MEDICARE ==
[2025-05-26 15:10] LABS: Basophils # (A) 0.06 X 10*3/uL (0.00-0.10); Basophils % (A) 0.6 %; Eosinophils # (A) 0.10 X 10*3/uL (0.04-0.35); Eosinophils % (A) 1.1 %; HCT 37.0 % (37.2-46.3); HGB 11.4 g/dL (12.0-15.0); Immature Grans, Automated 0.70 %; Lymphocytes # (A) 2.12 X 10*3/uL (0.90-5.00); Lymphocytes % (A) 22.6 %; MCH 27.2 pg (27.0-32.0); MCHC 30.8 g/dL (32.0-37.0); MCV 88.3 FL (80.0-97.0); Monocytes # (A) 0.58 X 10*3/uL (0.20-1.00); Monocytes % (A) 6.2 %; NRBC Per 100 WBC 0 X 10*3/uL (0.00-0.01); Neutrophils # (A) 6.46 X 10*3/uL (1.80-7.70); Neutrophils % (A) 68.8 %; Platelet Count 219 X 10*3/uL (140-440); RBC 4.19 X 10*6/uL (4.10-5.20); RDW 17.0 % (11.5-14.5); WBC 9.39 X 10*3/uL (4.50-10.00)
[2025-05-26 16:11] LABS: ALT 16 U/L (8-44); AST 18 U/L (13-35); Albumin 3.6 g/dL (3.8-4.9); Albumin/Globulin Ratio 1.38 Ratio (1.60-3.17); Anion Gap 12.20 mmol/L (4.00-12.00); BUN/Creat Ratio 13.91 Ratio (12.00-20.00); Blood Urea Nitrogen 15.3 mg/dL (9.0-27.0); Calcium 8.5 mg/dL (8.7-10.3); Carbon Dioxide 22.8 mmol/L (21.6-31.8); Chloride 105 mmol/L (96-109); Cholesterol 123.00 mg/dL (0.00-200.00); Globulin 2.6 g/dL (1.6-3.3); Glucose 174 mg/dL (70-110); HDL Cholesterol 39.90 mg/dL (40.00-60.00); Iron 56 UG/DL (50-170); LDL Cholesterol,Calculated 62.1 mg/dL (0.0-131.0); Magnesium 1.9 mg/dL (1.5-2.4); Potassium 4.1 mmol/L (3.5-5.5); Sodium 140 mmol/L (135-145); Total Iron Binding Capacity 302 UG/DL (228-460); Total Protein 6.2 g/dL (6.2-8.2); Triglycerides 105.00 mg/dL (0.00-149.00); VLDL Calculation 21.00 mg/dL (5.00-40.00)
[2025-05-26 16:12] LABS: Alkaline Phosphatase 147 U/L (41-126); Bilirubin,Unconjugated 0.27 mg/dL (0.20-1.00); Ferritin 71.8 ng/mL (10.0-291.0)
== END | disposition home or self-care (01) ==
LOC: LABWHC1 08:29
PROVIDERS: ATTEND Internal Medicine
DX: E11.22 Type 2 diabetes mellitus with diabetic chronic kidney disease (principal); N18.32 Chronic kidney disease, stage 3b; E11.65 Type 2 diabetes mellitus with hyperglycemia; N25.81 Secondary hyperparathyroidism of renal origin
CPT/HCPCS: 36415; 80053; 80061; 82043; 82248; 82306; 82570; 82728; 83036; 83540; 83550; 83735; 83970; 84100; 85025